=== PATIENT | female | born 1960 | race Caucasian/White ===

== ENCOUNTER → 2017-11-08 19:45 | Outpatient (CLI) | payer OTHER, SELFPAY | PROVIDERS: Family Provider Internal Medicine; PCP Internal Medicine; Visit Provider Internal Medicine | DX: G47.9 Sleep disorder, unspecified (principal) | CPT/HCPCS: 95810 ==

== ENCOUNTER → 2017-12-27 20:04 | Outpatient (CLI) | payer OTHER, SELFPAY | PROVIDERS: Family Provider Internal Medicine; PCP Internal Medicine; Visit Provider Internal Medicine Critical Care Medicine | DX: G47.33 Obstructive sleep apnea (adult) (pediatric) (principal) | CPT/HCPCS: 95811 ==

== ENCOUNTER → 2018-01-02 07:14 | Outpatient (CLI) | payer OTHER, SELFPAY ==
--- NOTE | 2018-01-02 12:50 | PFT ---
INTRODUCTION: The patient is a 57-year-old female that presents for pulmonary function testing secondary to a diagnosis of COPD. Respiratory therapy reports good patient effort. Bronchodilators were used during testing. INTERPRETATION: Forced expiration spirometry demonstrates the presence of a severe large airways obstructive ventilatory defect. There was a significant response to aerosolized bronchodilators noted. Spirograms are of good quality do not plateau indicating slow emptying of the lungs. Body plethysmography was performed and reveals an elevated RV to 169% of predicted, indicative of underlying air trapping. Diffusing capacity by single breath CO is moderately reduced at 53% of predicted. When compared to previous pulmonary function studies dated March 2011, there has been a significant reduction in the patient's FEV1 and DLCO. IMPRESSION: These pulmonary function studies demonstrate the presence of a partially reversible severe large airways obstructive ventilatory defect with associated air trapping and reduction in diffusing capacity.
== END ==
PROVIDERS: Family Provider Internal Medicine; PCP Internal Medicine; Referring Provider Internal Medicine Critical Care Medicine; Visit Provider Internal Medicine Critical Care Medicine
DX: J44.9 Chronic obstructive pulmonary disease, unspecified (principal)
CPT/HCPCS: 94060; 94726; 94729

== ENCOUNTER → 2018-02-10 15:06 | Outpatient (CLI) | payer OTHER, SELFPAY ==
[2018-02-10 13:34] VITALS: BMI 40.1
[2018-02-10 15:48] LABS: Absolute Lymphocyte Count 2.57 X10^3/ul (0.83-4.51); Absolute Neutrophil Count 4.7 X10^3/uL (2.0-7.7); Basophil# 0.05 X10^3/uL; Basophil% 0.6 % (0-1); Eosinophil# 0.38 X10^3/uL; Eosinophils% 4.6 % (0-5); Hemoglobin 12.8 g/dl (12.0-15.0); Lymphocyte # 2.57 X10^3/ul (4.0); Lymphocyte % 30.9 % (19-41); Mean Corpuscular Hgb 27.5 pg (27.0-32.0); Mean Corpuscular Volume 85.8 fL (81-99); Monocyte# 0.65 X10^3/uL; Monocyte% 7.8 % (0-10); Neutrophil # 4.65 X10^3/uL (2.7-7.7); Neutrophil % 55.9 % (47-70); Platelet Count 100 K/mm3 (150-450); RBC Distribution Width SD 43.8 fl (35.1-43.9); Red Blood Count 4.66 M/mm3 (4.2-5.4); White Blood Count 8.3 K/mm3 (4.4-11.0)
[2018-02-10 15:54] LABS: POSITIVE COUNT NO; POSITIVE DIFFERENTIAL NO; POSITIVE MORPHOLOGY NO
[2018-02-14 03:07] LABS: Alternaria alternata <0.10 kU/L (Class 0); Bermuda Grass <0.10 kU/L (Class 0); Bluegrass, Kentucky <0.10 kU/L (Class 0); Cat Hair/Dander, Standard <0.10 kU/L (Class 0); D farinae Mite <0.10 kU/L (Class 0); D pteronyssinus <0.10 kU/L (Class 0); Dog Epithelia <0.10 kU/L (Class 0); Elm, American White <0.10 kU/L (Class 0); Oak, White <0.10 kU/L (Class 0); Plantain, English <0.10 kU/L (Class 0); Ragweed, Short/Common <0.10 kU/L (Class 0)
[2018-02-14 12:53] LABS: Mouse Urine <0.10 kU/L (Class 0)
[2018-02-15 20:06] LABS: Aspirgillus flavus Negative (Neg:<1:1); Aspirgillus fumigatus Negative (Neg:<1:1); Aspirgillus niger Negative (Neg:<1:1)
[2018-02-16 08:34] LABS: Immunoglobulin E 17 IU/mL (0-100)
--- OUTSIDE RECORDS SUMMARY | 2018-05-15 07:57 | XMS RPT_ITS ---
:1960 Author Organization [facility] Care Team Providers Name Role Phone Luz DO, Cyndi Attending Unavailable Fast DO, Chloe A Referring Unavailable Luz DO, Cyndi Consulting Unavailable Barr, Annabel Attending Unavailable Luz, Cyndi Referring Unavailable Barr, Annabel Attending Unavailable Barr, Annabel Referring Unavailable Luz, Cyndi Primary Care Unavailable Luz, Cyndi Attending Unavailable Luz, Cyndi Primary Care Unavailable Gallo, Marcos Attending Unavailable Luz, Cyndi Referring Unavailable Gallo, Marcos Attending Unavailable Luz, Cyndi Primary Care Unavailable Gallo, Marcos Attending Unavailable Gallo, Marcos Referring Unavailable Luz, Cyndi Primary Care Unavailable Orlando Broderick D.O. Attending Unavailable Gallo, Marcos Referring Unavailable Purpose Purpose PROBLEMS PROBLEMS DATE TYPE CONDITION / CODE ATTENDING STATUS SOURCE 02/10/2018 Unknown J45.909 - Cortney, Active Matt Unspecified asthma, [facility] uncomplicated / Hospital J45.909(ICD-10) Repository 01/13/2018 Unknown J44.9 - Chronic Orlando Broderick Active Matt obstructive D.O. [facility] pulmonary disease, Hospital unspecified / Repository J44.9(ICD-10) 12/27/2017 Unknown G47.33 - Marcos Holder Active [place] [facility] ap[facility] (adult[facility] Hospital (pediatric) / Repository G47.33(ICD-10) PROCEDURES PROCEDURES No Procedure Records FoundVITAL SIGNS VITAL SIGNS No Vital Signs Records FoundRESULTS RESULTS PULMONARY VISIT REPORT Observed: 02/10/2018 Status: F Source: NAZARETH 4:[address] [facility] REPOSITORY [facility] Pulmonary Medicine of [address] [place] [address] OFFICE VISIT Date of Service: 02/10/18 MR#: [id number] Acct: [id number] Name: SHANTE VAZ Rep #: [id number] : 1960 Provider: Annabel Barr Age/Sex: 57/F Location: [facility] Status: Signed Assessment AND Plan 1. Stage 4 very severe COPD by GOLD classification J44.9 Plan Does not appear to be an exacerbation of COPD today. No need for prednisone or antibiotic. Continue current maintenance medication. No additional testing at this time. Contact the office for any new or worsening symptoms. An acute visit and typically be arranged within 1-2 days. Follow-up in 3 months. Medications New: albuterol sulfate 2.5 mg (3 mL) Inhalation Q4H PRN 180 vials 6RF shortness of breath or wh eezing 2. Severe persistent asthma without complication J45.50 Plan Stepping up therapy to a mood Singulair, continue Claritin daily, encourage Flonase daily. Doing additional lab work to identify if the patient possibly has IgE mediated versus eosinophilic or allergic asthma. Also obtaining a rest test to identify any triggers. Ruling out Aspergillus. Follow-up with Dr. Holder in 3 months to discuss test results. At that time they can evaluate symptom management and to see if she continues to use her rescue inhaler 3-4 times daily. 3. NATHANIEL (obstructive sleep apnea) G47.33 Plan Patient is using and benefiting from Pap therapy. No indication for titration study at this time. Continue to encourage weight loss. Contact the office for any new or worsening symptoms in the meantime. Follow-up in 3 months. 4. Obesity (BMI 30-39.9) E66.9 Plan Encourage weight loss. Plan Detail Other Orders Orders: Other Medications New: Follow Up 3 Months ([facility]) HPI 3 M FU: Chief Complaint: Wheezing HPI Comments Details: This patient presents the office today to follow- up after recently completing some testing. She is ambulatory and currently on room air. She states that she most recently completed prednisone approximately 2 weeks prior to January 02. She has not been on prednisone or antibiotics since then. She has not been to the emergency department or urgent care for any respiratory illnesses. She is compliant with trilogy daily. She rinses her mouth out after each use. She denies any medication side effects such as sore throat or thrush. She is currently utilizing her albuterol rescue inhaler 3-4 times daily. She states that the albuterol nebulizer is actually more effective in relieving her shortness of breath and chest tightness but she has run out of the medication and needs a refill. She takes Flonase occasionally, but is not consistent with it. She does take Claritin daily. Function test completed on January 02, 2018 interpreted as showing partially reversible severe large airway obstructive ventilatory defect, associated with air trapping and a reduction in diffusing capacity. FVC 67% of predicted, FEV1 45% of predicted, FEV1/FVC 52% of predicted, TLC 103% of predicted, RV 169% of predicted and DLCO 53% of predicted. Polysomnogram completed on November 08, 2017 interpreted as showing an overall AHI of 20.2 average events per hour, noted to be 32.2 events per hour in the REM stage of sleep and 28.9 events per hour in the supine position. Also noted a PLMS index of 27.4 events per hour. Impression is moderate obstructive sleep apnea. A CPAP titration study was recommended. CPAP titration study was completed on December 27, 2017 and suggest that the patient be treated on a pressure support of 10/6 cm of water. Also noted an elevated PLMS index of 51.1 events per hour. Compliance report for the past 30 days has been reviewed, note that the patient has only been on therapy since January 20. Since January 20 the patient has worn in the BiPAP every day with an average of greater than 4 hours. Current settings are in fact 10/6 cm H2O. AHI is controlled at an average of 0.5 events per hour and leaks do not appear to be an issue. She does report feeling rested upon arising. She is not currently experiencing any episodes of nocturia. She is struggling somewhat with some dry mouth and sinus pressure while wearing the BiPAP. He denies any difficulty with leaks. She is not currently napping. Intake Vital Signs02/10/18 Height 5 ft 7 in 02/10/18 Weight: 256 lb Intake Visit Reasons: 3 M FU [facility] Vendor: FAVIAN Accompanied by: Self Allergies No Known Allergies Allergy (Verified 02/10/18 13:36) Medications albuterol sulfate HFA 90 mcg/actuation aerosol inhaler 2 puff INHALATION Q6H PRN 11/15/17 [History Confirmed 02/10/18] cholecalciferol (vitamin D3) 2,000 unit capsule 4,000 unit PO DAILY cap 11/15/17 [History Confirmed 02/10/18] lorazepam 0.5 mg tablet 0.5 mg PO DAILY PRN tab 11/15/17 [History Confirmed 02/10/18] metformin 500 mg tablet 500 mg PO DAILY tab 11/15/17 [History Confirmed 02/10/18] fluticasone 100 mcg-umeclid 62.5 mcg-vilant 25 mcg powd for inhalation 1 inh INHALATION DAILY #60 ea 11/21/17 [Rx Confirmed 02/10/18] albuterol sulfate 2.5 mg/3 mL (0.083 %) solution for nebulization 2.5 mg INHALATION Q4H PRN #180 vial 02/10/18 [Rx Confirmed 02/10/18] montelukast 10 mg tablet 10 mg PO QPM #30 tab 02/10/18 [Rx Confirmed 02/10/18] PFSH Medical History History of colon cancer (Chronic) GERD (gastroesophageal reflux disease) (Chronic) COLD (chronic obstructive lung disease) (Chronic) Acute bronchitis (Acute) Hematuria (Acute) Vitamin D deficiency (Acute) Anxiety (Chronic) Apnea (Chronic) Axillary lymphadenopathy (Chronic) Chronic idiopathic thrombocytopenia (Chronic) GERD without esophagitis (Chronic) HLD (hyperlipidemia) (Chronic) History of MRSA infection (Chronic) Lung nodule (Chronic) Obesity (Chronic) Premature beats (Chronic) Sleep disorder (Chronic) Type 2 diabetes mellitus (Chronic) Surgical History H/O dilation and curettage (Resolved) H/O right hemicolectomy (Resolved) H/O tubal ligation (Resolved) History of tonsillectomy (Resolved) Hx of cholecystectomy (Resolved) Family History Mother HLD (hyperlipidemia) Anxiety Depression Alzheimers disease Social History Smoking Status: Former smoker second hand exposure: Yes alcohol intake: current alcohol intake frequency: holidays/special occasions only substance use type: does not use Review of Systems Const CONSTITUTIONAL: Negative anorexia, body ache, chills, daytime sleepiness, fever(s), night sweats, oral thrush, stops breathing during sleep, weight loss, sleeping in chair, fatigue, weight loss, weight gain, frequent colds, seasonal allergies, other, headache(s) or orthopnea EETM Ear Nose Throat Mouth: Positive hearing normal, post nasal drip and other (nasal dryness); negative hard of hearing, hoarseness, dry mouth in morning, change in vision, itchy eyes, eye pain, swallowing Difficulty, ear pain, nose bleed, headache(s), mouth pain, nasal congestion, nasal discharge, sinus pain, sinus pressure or sore throat Cardio Cardiovascular: Positive edema Location: lower extremity (hands) Right/Left: Left, Right; negative chest pain, chest pain at rest, chest pain with activity, irregular heart rhythm, shortness of breath when lying down, palpitations, murmur or other Resp Respiratory: Positive as per HPI and shortness of breath shortness of breath: Positive with activity; negative pain with cough, wheezing, chest congestion, cough, chest tightness, pain on inspiration, inhalers, increase use of rescue inhalers, snoring, apnea or other Gastro Gastrointestional: Negative bloody stools, change in appetite, difficulty swallowing, reflux, hematemesis, melena stool, loose stool, constipation or other Genitourinary: Negative blood in urine, nocturia, pain with urination or other Musc Musculoskeletal: Negative body pain, back pain, neck pain or other Skin/Breast Skin/Breast: Negative dry skin, itching, rash, unusual bruising, breast lump or other Neuro Neurological: Negative restless legs, confusion, weakness or other Psych Psychocological: Negative abnormal sleep pattern, anxiety, thoughts of hurting self/others, hopelessness or other Lymph Lymphatic: Negative easy bleeding, easy bruising, swollen lymph nodes or other Exam Const Constitutional: Positive conversant, cooperative, in no acute respiratory distress, healthy appearing, well developed, well nourished, good hygiene and obese Head Head: Positive normocephalic and atraumatic; negative cyanosis of lips/distal nose Eyes Eye: Positive clear conjunctiva; negative nystagmus or scleral abnormality Ears Ear: Positive hearing normal and external ears normal; negative hard of hearing Nose Nose: Positive external nose normal and no nasal discharge; negative epistaxis Mouth Mouth: Positive post nasal drip, oral mucosae normal, no lesions and crowded posterior oropharynx; negative malodorous breath or oral thrush present Mallampati Score: III: Mallampati Score Neck Neck: Positive normal visual inspection, full ROM, trachea midline, thick neck and female neck greater than 37 cm (15 in); negative lymphadenopathy, JVD or tender Chest Wall Chest: Positive symmetric chest movement and increased A/P diameter Resp lung sounds: Positive good air exchange, wheeze present on forced exhalation, normal respiratory effort and prolonged expiratory time; negative diminished, rhonchi, rales or dullness to percussion Cardio Cardiac: Positive regular rate, regular rhythm, S1 normal and S2 normal; negative murmur GI GI: Positive normal to inspection and obese; negative distended Genitourinary: Positive deferred Musc Musculoskeletal: Positive steady gait, ROM normal and kyphosis; negative scoliosis Skin Pulmonary Skin Exam: Positive intact; negative rash Pulses Pulse: Yes pulses normal x4 extremities Extremities Extremities: Yes capillary refill normal, No clubbing, No cyanosis, Yes edema Location: lower extremity (hands) location: Bilateral pitting +1 Neuro Neurologic: Yes conversant, Yes no focal neuro deficits, Yes normal concentration, Yes understands questions, Yes cooperative, Yes normal cognition, Yes normal coordination, No tremor Lymph Lymphatic: No lymphadenopathy, No tenderness, No cervical adenopathy Psych Appearance: Positive grossly normal, eye contact and well kempt Mental Status: Positive mental status grossly normal Mood: Positive anxious mood Affect: Positive anxious affect Coding Level of Care Code Off vis,est,level 4 Diagnoses Stage 4 very severe COPD by GOLD classification J44.9 Severe persistent asthma without complication J45.50 Asthma severity: severe Asthma persistence: persistent Asthma complication type: uncomplicated NATHANIEL (obstructive sleep apnea) G47.33 Obesity (BMI 30-39.9) E66.9 02/10/18 1642 <Electronically signed by Annabel HERNANDEZ> Date Annabel KHANC Cosigner Signature: Date (if applicable) CC: Cyndi Escobar DO CBC W/DIFF, AUTOMATED Collected: 02/10/2018 Status: F Source: MATT 3:[address] [facility] REPOSITORY TYPE CODE TESTS RESULT OUT OF RANGE REFERENCE UNITS LAB L100.1000 4.4-11.0 K/mm3 Normal WBC 8.3 LAB L100.1200 4.2-5.4 M/mm3 Normal RBC 4.66 LAB L100.1300 12.0-15.0 g/dl Normal HGB 12.8 LAB L100.1400 37-47 % Normal HCT 40.0 LAB L100.1500 81-99 fL Normal MCV 85.8 LAB L100.1600 27.0-32.0 pg Normal MCH 27.5 LAB L100.1700 32-36 g/gl Normal MCHC 32.0 LAB L100.1810 11.6-14.6 % Normal RDW CV 14.0 LAB L100.1820 35.1-43.9 fl Normal RDW SD 43.8 LAB L100.1900 150-450 K/mm3 Low PLT 100 LAB L100.2000 6.2-12.0 fl Normal MPV 11.0 LAB L100.2100 47-70 % Normal NEUT% 55.9 LAB L100.2200 19-41 % Normal LY% 30.9 LAB L100.2300 0-10 % Normal MONO% 7.8 LAB L100.2400 0-5 % Normal EO% 4.6 LAB L100.2500 0-1 % Normal BASO% 0.6 LAB L100.2550 0.0-0.9 % Normal IM GRAN % 0.200 Result Comment: IG% - Immature Granulocytes (promyelocytes, myelocytes and metamyelocytes) > 1% indicates that a LEFT SHIFT is Present. LAB L100.2620 2.0-7.7 X10 3/uL Normal Absolute Neut 4.7 LAB L100.2720 0.83-4.51 X10 3/ul Normal Absolute Lymph 2.57 Performed By: #### L100.0100 #### [facility] [address] [place], [address] ALLERGEN, MINI-RAST Collected: 02/10/2018 Status: F Source: NAZARETH 3:[address] [facility] REPOSITORY TYPE CODE TESTS RESULT OUT OF REFERENCE UNITS RANGE LAB L5500.1001 Class 0 kU/L D PTERONYSSINUS Normal <0.10 LAB L5500.1002 Class 0 kU/L D FARINAE MITE Normal <0.10 LAB L5500.2000 Class 0 kU/L CAT HAIR/DANDER Normal <0.10 LAB L5500.2002 Class 0 kU/L DOG EPITHELIA Normal <0.10 LAB L5500.4002 Class 0 kU/L BERMUDA GRASS Normal <0.10 LAB L5500.4008 Class 0 kU/L [place], [place] Normal <0.10 LAB L5500.5006 Class 0 kU/L A. ALTERNATA Normal <0.10 LAB L5500.6007 Class 0 kU/L [place], WHITE Normal <0.10 LAB L5500.6008 Class 0 kU/L [place],AMER WHITE Normal <0.10 LAB L5500.7001 Class 0 kU/L RAG[place] SH/COM Normal <0.10 LAB L5500.7009 Class 0 kU/L PLANTAIN,ENGLSH Normal <0.10 LAB L5500.7150 Class 0 kU/L Mouse Urine Normal <0.10 Result Comment: Performed at: - [facility] [id number] [employer] Consultant: Nakita Rolon MD, Phone: [phone] LAB Q9476.8913 . Normal RAST COMMENT Comment Result Comment: Levels of Specific IgE Class Description of Class ----- < 0.10 0 Negative 0.10 - 0.31 0/I Equivocal/Low 0.32 - 0.55 I Low 0.56 - 1.40 II Moderate 1.41 - 3.90 III High 3.91 - 19.00 IV Very High 19.01 - 100.00 V Very High >100.00 Very High Performed By: #### L5500.0300 #### [facility] (refer to report for specific site) refer to report for address and phone number IMMUNOGLOBULIN E Collected: 02/10/2018 Status: F Source: MATT 3:[address] [facility] REPOSITORY TYPE CODE TESTS RESULT OUT OF RANGE REFERENCE UNITS LAB L3200.1600 0-100 IU/mL Normal IMMUNO E 17 Result Comment: Performed at: [facility] [id number] [employer] Consultant: Nakita Rolon MD, Phone: [phone] Performed By: #### L3200.1600, L3500.3600 #### [facility] (refer to report for specific site) refer to report for address and phone number ASPERGILLUS ANTIBODIES Collected: 02/10/2018 Status: F Source: MATT 3:[address] [facility] REPOSITORY TYPE CODE TESTS RESULT OUT OF RANGE REFERENCE UNITS LAB L3500.3700 Neg:<1:1 Asp. Normal fumigatus Negative LAB L3500.3800 Neg:<1:1 Asp. Normal flavus Negative LAB L3500.3900 Neg:<1:1 Asp. Normal niger Negative Performed By: #### L3200.1600, L3500.3600 #### [facility] (refer to report for specific site) refer to report for address and phone number PULMONARY FUNCTION Observed: 01/02/2018 Status: F Source: MATT TEST 12:[address] [facility] REPOSITORY [facility] Pulmonary Services/Neurology [address] [place] [address] MR#: [id number] Acct: [id number] Name: SHANTE VAZ Rep #: [id number] : 1960 57 From: Orlando Broderick DO Referring Dr: Marcos Holder MD Status: REG CLI Ordering Dr: Date: Location: [facility] Sex: F C INTRODUCTION: The patient is a 57-year-old female that presents for pulmonary function testing secondary to a diagnosis of COPD. Respiratory therapy reports good patient effort. Bronchodilators were used during testing. INTERPRETATION: Forced expiration spirometry demonstrates the presence of a severe large airways obstructive ventilatory defect. There was a significant response to aerosolized bronchodilators noted. Spirograms are of good quality do not plateau indicating slow emptying of the lungs. Body plethysmography was performed and reveals an elevated RV to 169% of predicted, indicative of underlying air trapping. Diffusing capacity by single breath CO is moderately reduced at 53% of predicted. When compared to previous pulmonary function studies dated March 2011, there has been a significant reduction in the patient's FEV1 and DLCO. IMPRESSION: These pulmonary function studies demonstrate the presence of a partially reversible severe large airways obstructive ventilatory defect with associated air trapping and reduction in diffusing capacity. 01/02/18 1252 <Electronically signed by Orlando Broderick DO> Date Orlando Broderick DO CC: Marcos Holder MD; Cyndi Escobar DO Date Dictated: 01/02/18 1250 Date Transcribed: 01/02/18 1250 Flight Steward: FRANCESCA Signed PULMONARY VISIT REPORT Observed: 11/22/2017 Status: F Source: MATT 7:[address] [facility] REPOSITORY [facility] [place] [address] [place] [address] OFFICE VISIT Date of Service: 11/21/17 MR#: [id number] Acct: [id number] Name: SHANTE VAZ Rep #: [id number] : 1960 Provider: Marcos Holder MD Age/Sex: 57/F Location: [facility] Status: Signed Assessment AND Plan 1. Stage 4 very severe COPD by GOLD classification J44.9 Plan Patient with very severe obstruction by spirometry at her PCPs office. However, FVC is decreased indicating a possible restrictive ventilatory defect. Will obtain a complete pulmonary function test for quantification and clarification of lung function including lung volumes for possible restriction. Clinical suspicion for air trapping leading to decreased FVC. Patient's walking oximetry did not show any significant desaturation, so this will not be repeated. Will transition patient to Trelegy or convenience. Patient was given a co-pay card to limit [id number] expenses. Signs and symptoms of exacerbation and sick policy were reviewed in detail and patient voiced understanding. Transition to Trelegy. Discontinue Tudorza and Symbicort. Obtain complete PFT Orders Orders: 2. NATHANIEL (obstructive sleep apnea) G47.33 Plan Patient's polysomnogram shows an AHI of 20.2 with a periodic limb movement index of 27.4. Given patient's subjective fatigue, this level of disease will require noninvasive therapy. A titration polysomnogram will be ordered. We will hold off on any iron studies or Mirapex therapy until NATHANIEL is treated. Obtain titration polysomnogram. Orders Orders: 3. Obesity (BMI 30-39.9) E66.9 Plan Michael discussion with patient about the role of weight loss and the overall disease plan of care. However, plan on controlling sleep apnea prior to initiation of any dietary or exercise modifications to help with success. Patient is aware of the role of her weight and her overall disease process. Patient understands that weight loss will also help her compensate for decreased lung function. Encourage weight loss following control of obstructive sleep apnea Plan Detail Other Medications New: nonbhomkpcr-izmsxgqze-ldzdgmap 100-62.5-25 mcg (Trelegy1 inh Inhalation DAILY 60 ea 11RF Ellipta) Follow Up 3 Months ([facility]) HPI Chronic obstructive pulmonary disease: Chief Complaint: Shortness of breath on exertion Details: Patient is a 57-year-old female, currently under the care of Dr. Chance, who presents for evaluation secondary to shortness of breath on exertion. Patient reports a long history of COPD after smoking for 29 pack years. However, patient did achieve smoking cessation several years ago, but still has secondhand smoke exposure. Patient is currently being treated with Tudorza and Symbicort therapy and states that she has been tolerating this well. Patient's primary care physician did try her on Trelegy with a sample, but patient states that she really did not see any big difference, so went back to her normal medications. Patient reports exercise tolerance of approximately 100 yards. Patient did have a walking oximetry recently at her primary care physician that showed no significant desaturation. However, spirometry shows significant decrease in FEV1. Patient does report a cough productive of clear to white sputum on a daily basis. Patient also reports wheezing that does improve with production of creamy white sputum. Patient reports that she is a terrible sleeper and recently had a polysomnogram ordered by her primary care physician. Patient states that it was inferred that she may need another study, but she does not know the results. Patient reports that she snores and does wake up frequently at night. Patient does have a history of colon cancer in the past, but states that she is currently cured and follows with Dr. Cordero. Documentation reviewed 14 pages of documentation were reviewed from patient's primary care physician. This did include a walking oximetry showing no significant desaturation with ambulation. Patient also had a pulmonary function test showing an FEV1 of 46% of predicted, but no lung volumes were available for review. Patient does have a history of colon cancer diagnosed in 2012, but underwent resection and chemotherapy and was considered cured. Patient carries a diagnosis of lung nodule, but no details are available. Patient was placed on trelegy. Called the sleep lab and got the raw data for patient's recent polysomnogram. Patient had an AHI of 20.2. Formal report should be out later today or tomorrow. Intake Vital Signs11/21/17 Height 5 ft 7 in 11/21/17 Weight: 113.398 kg Intake Visit Reasons: COPD Accompanied by: Self Allergies No Known Allergies Allergy (Verified 11/15/17 09:25) Medications albuterol sulfate 2.5 mg/3 mL (0.083 %) solution for nebulization 2.5 mg INHALATION Q4H PRN 11/15/17 [History Confirmed 11/15/17] albuterol sulfate HFA 90 mcg/actuation aerosol inhaler 2 puff INHALATION Q6H PRN 11/15/17 [History Confirmed 11/15/17] cholecalciferol (vitamin D3) 2,000 unit capsule 4,000 unit PO DAILY cap 11/15/17 [History Confirmed 11/15/17] lorazepam 0.5 mg tablet 0.5 mg PO DAILY PRN tab 11/15/17 [History Confirmed 11/15/17] metformin 500 mg tablet 500 mg PO DAILY tab 11/15/17 [History Confirmed 11/15/17] fluticasone 100 mcg-umeclid 62.5 mcg-vilant 25 mcg powd for inhalation 1 inh INHALATION DAILY #60 ea 11/21/17 [Rx Confirmed 11/21/17] PFS Medical History History of colon cancer (Chronic) GERD (gastroesophageal reflux disease) (Chronic) COLD (chronic obstructive lung disease) (Chronic) Acute bronchitis (Acute) Hematuria (Acute) Vitamin D deficiency (Acute) Anxiety (Chronic) Apnea (Chronic) Axillary lymphadenopathy (Chronic) Chronic idiopathic thrombocytopenia (Chronic) GERD without esophagitis (Chronic) HLD (hyperlipidemia) (Chronic) History of MRSA infection (Chronic) Lung nodule (Chronic) Obesity (Chronic) Premature beats (Chronic) Sleep disorder (Chronic) Type 2 diabetes mellitus (Chronic) Surgical History H/O dilation and curettage (Resolved) H/O right hemicolectomy (Resolved) H/O tubal ligation (Resolved) History of tonsillectomy (Resolved) Hx of cholecystectomy (Resolved) Family History Mother HLD (hyperlipidemia) Anxiety Depression Alzheimers disease Social History Smoking Status: Former smoker second hand exposure: Yes alcohol intake: current alcohol intake frequency: holidays/special occasions only substance use type: does not use Review of Systems Const CONSTITUTIONAL: Negative anorexia, body ache, chills, daytime sleepiness, fever(s), night sweats, oral thrush, stops breathing during sleep, weight loss, sleeping in chair, fatigue, weight loss, weight gain, frequent colds, seasonal allergies, other, headache(s) or orthopnea EETM Ear Nose Throat Mouth: Positive hearing normal and dry mouth in morning; negative hard of hearing, hoarseness, change in vision, itchy eyes, eye pain, swallowing Difficulty, ear pain, nose bleed, headache(s), mouth pain, nasal congestion, nasal discharge, post nasal drip, sinus pain, sinus pressure, sore throat or other Cardio Cardiovascular: Negative chest pain, chest pain at rest, chest pain with activity, irregular heart rhythm, edema, shortness of breath when lying down, palpitations, murmur or other Resp Respiratory: Positive as per HPI, shortness of breath shortness of breath: Positive with activity and worsening, wheezing and cough cough: Positive productive color: Positive white and clear; negative pain with cough, chest congestion, chest tightness, pain on inspiration, inhalers, increase use of rescue inhalers, snoring, apnea or other Gastro Gastrointestional: Negative bloody stools, change in appetite, difficulty swallowing, reflux, hematemesis, melena stool, loose stool, constipation or other Genitourinary: Negative blood in urine, nocturia, pain with urination or other Musc Musculoskeletal: Negative body pain, back pain, neck pain or other Skin/Breast Skin/Breast: Negative dry skin, itching, rash, unusual bruising, breast lump or other Neuro Neurological: Negative restless legs, confusion, weakness or other Psych Psychocological: Positive abnormal sleep pattern; negative anxiety, thoughts of hurting self/others, hopelessness or other Lymph Lymphatic: Negative easy bleeding, easy bruising, swollen lymph nodes or other Exam Const Constitutional: Positive conversant, cooperative, in no acute respiratory distress, healthy appearing, well developed, well nourished, good hygiene and obese; negative wearing supplemental oxygen or smells of smoke Head Head: Positive normocephalic and atraumatic; negative cyanosis of lips/distal nose, frontal sinus tenderness or maxillary sinus tenderness Eyes Eye: Positive clear conjunctiva; negative nystagmus, scleral abnormality or cataract present Ears Ear: Positive hearing normal and external ears normal; negative hard of hearing Nose Nose: Positive external nose normal, septum normal and no nasal discharge; negative epistaxis or nasal polyp Mouth Mouth: Positive oral mucosae normal, no lesions, dentures and crowded posterior oropharynx; negative post nasal drip, malodorous breath or oral thrush present Mallampati Score: III: Mallampati Score Neck Neck: Positive normal visual inspection, full ROM, trachea midline and female neck greater than 37 cm (15 in); negative lymphadenopathy or JVD Chest Wall Chest: Positive symmetric chest movement and increased A/P diameter; negative crepitus or tenderness Resp lung sounds: Positive wheeze present on forced exhalation, diminished and prolonged expiratory time; negative wheezes, rhonchi, rales, use of accessory muscles or dullness to percussion Cardio Cardiac: Positive regular rate, regular rhythm, S1 normal and S2 normal; negative murmur, rub or gallop GI GI: Positive normal to inspection, normal bowel sounds and obese; negative distended, ascites or epigastric tenderness Genitourinary: Positive deferred Musc Musculoskeletal: Positive steady gait; negative using an assistive device for ambulation, kyphosis or scoliosis Skin Pulmonary Skin Exam: Positive intact; negative rash, lesion, ulcers, erythema, scaly or dermal atrophy Pulses Pulse: Yes radial pulses present Extremities Extremities: Yes capillary refill normal, No clubbing, No cyanosis, Yes edema (1+ lower extremity) Neuro Neurologic: Yes conversant, Yes no focal neuro deficits, Yes normal coordination, Yes normal concentration, Yes cooperative, Yes normal cognition, Yes understands questions Lymph Lymphatic: No lymphadenopathy Psych Appearance: Positive grossly normal Mental Status: Positive mental status grossly normal Mood: Positive congruent mood Affect: Positive normal affect Coding Level of Care Code Off vis,new,level 5 Diagnoses Stage 4 very severe COPD by GOLD classification J44.9 NATHANIEL (obstructive sleep apnea) G47.33 Obesity (BMI 30-39.9) E66.9 11/22/17 0736 <Electronically signed by Marcos Holder MD> Date Marcos Holder MD Cosigner Signature: Date (if applicable) CC: Cyndi Escobar DO ALLERGIES ALLERGIES DATE TYPE / CODE NAME / CODE REACTION SEVERITY SOURCE 02/10/2018 Drug No Known Unknown Matt [facility] Allergy/4160 Allergies/F00 Hospital 72909(SNOMED [id number](RXNOR Repository CT) M) ENCOUNTERS ENCOUNTERS ADMIT/DISCHARGE ACCOUNT ADMITTING ENCOUNTER LOCATION SOURCE NUMBER CLASS 02/21/2018 [id number] Ambulatory Building:[facility] OHIP Practices Repository 02/10/2018 [id number] Ambulatory Matt Matt 4 [facility] ing:PAVLAB Repository 02/10/2018/ [id number] Ambulatory BMSBuilding:B Matt 8 0 [place].[facility] Repository 01/02/2018 [id number] Ambulatory Matt Matt 6 [facility] ing:PSN Repository 01/02/2018 [id number] Ambulatory BMSBuilding:W Matt 7 [facility] Repository 12/27/2017 [id number] Ambulatory [place] 1 [facility] ing:SL Repository 11/21/2017/ [id number] Ambulatory BMSBuilding:B Matt 8 0 MS.W [facility] Repository 11/08/2017 [id number] Ambulatory Matt Matt 3 [facility] ing:SL Repository FUNCTIONAL STATUS FUNCTIONAL STATUS No Functional Status Records FoundEQUIPMENT EQUIPMENT No Equipment Records FoundPAYERS PAYERS ENCOUNTER GUARANTOR PAYER SUBSCRIBER SOURCE 02/21/2018 Shante G [facility]: Repository [id number] Number: [id number] [facility] [id number] [address] [facility] [address] [place] [address], [place] Date:5110-83-26Vgyg [address] [place] [address]Idl: 330) Name:[facility] Shanita [address]Cxr: 733548Hzegxb, [place] [phone] () ()Tel: [phone]: [phone] 02/21/2018 Secondary Shante G OHIP Practices Insurance:Medical MiddletonDOB: Repository [facility] [id number] Number: [address] [facility] [id number] [address], [place] Date: [address]Aec: [phone] [id number] [phone] (HP) Name:[facility] Shanita [address]Qzgomnmsf, [place] [id number]: 02/10/2018 NEGRO Mamta Primary SHANTE Navarrete Matt [id number] [facility] [address], [facility] Number: [id number] Hospital [address]Uqv: [phone] [id number] Repository [phone] (HP) Date:3780-20-15[address]QSQWG, [place] [address]AA: 02/10/2018 Secondary NOT GIVENUNK [place] Insurance:SELF PAY [facility] Number: Effective Repository Date:2018-02-10 02/10/2018 NEGRO D Primary SHANTE Navarrete [place] [id number] [facility] Number: [id number] Hospital [address]Hbr: [phone] [id number] Repository [phone] () Date:3403-35-36[address]CU, [place] [address]WN: 02/10/2018 Secondary NOT GIVENUNK [place] Insurance:SELF PAY [facility] Hospital Number: Effective Repository Date:2018-01-31 01/02/2018 NEGRO D Primary SHANTE Fongoster [id number] [facility] [address], [facility] Number: [id number] Hospital [address]28[address]Xhc: [phone] [id number] Repository [phone] (HP) Date:6990-53-88[address], [place] [address]FS: 01/02/2018 Secondary NOT GIVENUNK [place] Insurance:SELF PAY [facility] Hospital Number: Effective Repository Date:2017-12-17 01/02/2018 NEGRO Oleary Primary SHANTE Navarrete [place] [id number] Insurance:GPATPA MIDDLETONDOB: [address], [place] [facility] Number: [id number] Hospital [address]Tah: [phone] [id number] Repository [phone] (HP) Date:6750-98-19[address]QIU, [place] [address]RK: 01/02/2018 Secondary NOT GIVENUNK [place] Insurance:SELF PAY [facility] Number: Effective Repository Date:2018-01-02 12/27/2017 NEGRO Oleary Primary SHANTE Navarrete [place] [id number] Insurance:GPATPA MIDDLETONDOB: [address] [facility] Number: [id number] Hospital [address]Xfk: [phone] [id number] Repository [phone] (HP) Date:1429-43-05[address]QYJVWC, [place] [address]TL: 12/27/2017 Secondary NOT GIVENUNK Matt Insurance:SELF PAY [facility] Number: Effective Repository Date:2017-11-21 11/21/2017 Negro Oleary Primary SHANTE Navarrete [place] [id number] Insurance:GPATPA MIDDLETONDOB: [address] [facility] Number: [id number] Hospital [address]Cys: [phone] [id number] Repository [phone] (HP) Date:1596-02-73GJ [address]IEJFPS, [place] [address]NO: 11/21/2017 Secondary NOT GIVENUNK [place] Insurance:SELF PAY [facility] Number: Effective Repository Date:2017-11-20 11/08/2017 Negro Oleary Primary SHANTE Fongoster [id number] Insurance:GPATPA MIDDLETONDOB: [address] [facility] Number: [id number] Hospital [address]Rne: [phone] [id number] Repository [phone] (HP) Date:3726-25-87WQ [address]ZZW, [place] [address]KR: 11/08/2017 Secondary NOT GIVENUNK [place] Insurance:SELF PAY [facility] Number: Effective Repository Date:2017-10-25 SOCIAL HISTORY SOCIAL HISTORY No Social History Records FoundFAMILY HISTORY FAMILY HISTORY No Family History Records FoundADVANCE DIRECTIVES ADVANCE DIRECTIVES No Advanced Directives Records FoundINFORMATION SOURCE INFORMATION SOURCE DATE CREATED AUTHOR AUTHOR'S ORGANIZATION 03/19/2018 [facility]
== END ==
PROVIDERS: Family Provider Internal Medicine; PCP Internal Medicine; Referring Provider Nurse Practitioner Acute Care; Visit Provider Nurse Practitioner Acute Care
DX: J45.909 Unspecified asthma, uncomplicated (principal)
CPT/HCPCS: 36415; 82785; 85025; 86003; 86606

== ENCOUNTER → 2018-05-24 07:42 | Outpatient (CLI) | payer OTHER, SELFPAY ==
[2018-05-09 10:33] VITALS: BMI 40.1
[2018-05-24 08:00] LABS: Mucous, Urine 0 SEEN /hpf (<or=2+); Red Blood Cells-Urine 0 SEEN /hpf (0-5)
[2018-05-24 08:20] LABS: Absolute Lymphocyte Count 2.13 X10^3/ul (0.83-4.51); Absolute Neutrophil Count 3.5 X10^3/uL (2.0-7.7); Basophil# 0.02 X10^3/uL; Basophil% 0.3 % (0-1); Color, Urine Yellow (Yellow); Eosinophil# 0.33 X10^3/uL; Glucose, Dipstick Normal (Normal); Hematocrit 39.4 % (37-47); Hemoglobin 12.3 g/dl (12.0-15.0); Ketone-Dipstick Negative (Negative); Leukocyte Esterase-Dipstick 25 /ul (Negative); Lymphocyte # 2.13 X10^3/ul (4.0); Lymphocyte % 32.6 % (19-41); Mean Corp Hgb Conc 31.2 g/gl (32-36); Mean Corpuscular Hgb 26.7 pg (27.0-32.0); Mean Corpuscular Volume 85.7 fL (81-99); Mean Platelet Vol. 10.6 fl (6.2-12.0); Monocyte# 0.59 X10^3/uL; Neutrophil # 3.45 X10^3/uL (2.7-7.7); Neutrophil % 52.8 % (47-70); Nitrite-Dipstick Negative (Negative); Occult Blood-Urine 10 /ul (Negative); Platelet Count 130 K/mm3 (150-450); Protein-Dipstick Negative (Negative); RBC Distribution Width CV 14.6 % (11.6-14.6); RBC Distribution Width SD 45.7 fl (35.1-43.9); Specific Gravity, Urine 1.015 (1.002-1.030); Urine Bilirubin Dipstick Negative (Negative); Urine Clarity Sl. Cloudy (Clear); Urine Urobilinogen Normal (Normal); White Blood Count 6.5 K/mm3 (4.4-11.0)
[2018-05-24 08:22] LABS: POSITIVE COUNT NO; POSITIVE DIFFERENTIAL NO; POSITIVE MORPHOLOGY NO
[2018-05-24 08:34] LABS: Bacteria RARE /hpf (None Seen); Squamous Epithelial Cells - UA 0-5 SEEN /hpf (5-10); White Blood Cells 0-5 SEEN /hpf (0-5)
[2018-05-24 08:42] LABS: Microalbumin,Random Urine 10.5 mg/L (NO RANGE EST.); Microalbumin:Creatinine Ratio 11.9 mg/g CRE (<30 mg/g CRE)
[2018-05-24 08:50] LABS: AST(SGOT) 16 U/L (15-37); Alanine Aminotransfer ALT/SGPT 27 U/L (13-56); Albumin, Serum 3.6 g/dL (3.2-5.0); Alkaline Phosphatase 131 U/L (45-117); Anion Gap 7 (5-15); BUN 9 mg/dL (7-18); BUN/Creat Ratio 12.2 RATIO (10-20); Bilirubin, Direct 0.19 mg/dL (0.00-0.30); Calcium,Total 8.6 mg/dL (8.5-10.1); Chloride 109 mmol/L (98-107); Creatinine, Serum 0.74 mg/dL (0.55-1.02); EST Glomerular Filtration Rate 85 mL/min (>60); Est Glom Filt Rate - Afr Amer 103 mL/min (>60); Globulin 3.6 g/dL (2.2-4.2); Glucose 122 mg/dL (74-106); Potassium 3.9 mmol/L (3.5-5.1); Protein, Total 7.2 g/dL (6.4-8.2); Sodium Level 142 mmol/L (136-145); Thyroid Stim Hormone (TSH) 1.94 uIU/mL (0.358-3.74)
[2018-05-24 08:53] LABS: Vitamin D,25 Hydroxy 57.2 ng/mL (29.95-100.01)
[2018-05-27 12:07] LABS: CHOLESTEROL TOTAL 177 mg/dL (100-199); HDL-C 46 mg/dL (>39); SMALL LDL-P 765 nmol/L (<=527); TRIGLYCERIDES 103 mg/dL (0-149)
[2018-05-27 13:05] LABS: INSULIN RESISTANCE SCORE 63 (<=45); LDL SIZE 20.8 nm (>20.5); LDL-C 110 mg/dL (0-99); LDL-P 1523 nmol/L (<1000)
== END ==
LOC: LAB 07:45
PROVIDERS: Family Provider Internal Medicine; PCP Internal Medicine; Referring Provider Internal Medicine Critical Care Medicine; Visit Provider Internal Medicine Critical Care Medicine
DX: J44.9 Chronic obstructive pulmonary disease, unspecified (principal); E88.01 Alpha-1-antitrypsin deficiency; E55.9 Vitamin D deficiency, unspecified; D69.3 Immune thrombocytopenic purpura; E78.5 Hyperlipidemia, unspecified; E11.9 Type 2 diabetes mellitus without complications
CPT/HCPCS: 80048; 80061; 80076; 81001; 82043; 82306; 82570; 83704; 84443; 85025

== ENCOUNTER → 2018-05-30 14:15 | Outpatient (CLI) | payer OTHER, SELFPAY ==
[2018-05-30 13:37] VITALS: BMI 40.1
== END ==
LOC: LABSPEC 14:17
PROVIDERS: Family Provider Internal Medicine; PCP Internal Medicine; Referring Provider Nurse Practitioner Acute Care; Visit Provider Nurse Practitioner Acute Care
DX: J44.9 Chronic obstructive pulmonary disease, unspecified (principal)
CPT/HCPCS: 87070; 87077; 87186; 87205

== ENCOUNTER → 2018-07-29 07:14 | Outpatient (CLI) | payer OTHER, SELFPAY ==
[2018-05-09 10:33] VITALS: BMI 40.1
[2018-05-30 13:37] VITALS: BMI 40.1
--- NOTE | 2018-07-29 12:56 | PFT ---
INTRODUCTION: The patient is a 58-year-old female that presents for pulmonary function studies secondary to a diagnosis of COPD. Respiratory therapy reports good patient effort. Bronchodilators were used during testing. INTERPRETATION: Forced expiration spirometry demonstrates the presence of a severe large airways obstructive ventilatory defect. There was a significant response to aerosolized bronchodilators. Spirograms are of good quality and do not plateau indicating slow emptying of the lungs. Body plethysmography was performed and reveals an elevated RV to 188% of predicted, indicative of underlying air trapping. Diffusing capacity by single breath CO is reduced at 51% of predicted. IMPRESSION: Partially reversible severe large airways obstructive ventilatory defect with associated air trapping and reduction in diffusing capacity.
== END ==
LOC: PSN 07:15
PROVIDERS: Family Provider Internal Medicine; PCP Internal Medicine; Referring Provider Internal Medicine Critical Care Medicine; Visit Provider Internal Medicine Critical Care Medicine
DX: J44.9 Chronic obstructive pulmonary disease, unspecified (principal); E88.01 Alpha-1-antitrypsin deficiency
CPT/HCPCS: 94060; 94726; 94729

== ENCOUNTER → 2018-08-04 08:53 | Outpatient (CLI) | payer OTHER, SELFPAY ==
[2018-05-09 10:33] VITALS: BMI 40.1
[2018-05-30 13:37] VITALS: BMI 40.1
[2018-08-04 09:17] VITALS: PULSE 100; PULSE 104; PULSE 107; PULSE 109; PULSE 110; PULSE 76; O2SAT 92; O2SAT 94; O2SAT 96; O2SAT 97; O2SAT 98
--- NOTE | 2018-08-04 12:56 | PCM.PSN.6M ---
PSN 6 Minute Walk Test - 6 Minute Walk Test 6 Minute Walk Test: 6 Minute Walk Test PSN:6-Minute Walk Test Start: 08/04/18 09:17 Freq: Status: Active Protocol: RESP.6MINW Document 08/04/18 09:17 [facility] (Rec: 08/04/18 09:23 [facility] [id number]) 6 Minute Walk Test Date Performed 08/04/18 Time Performed 09:00 Height 5 ft 7.5 in Weight: 113.398 kg Weight in Pounds 250.[address]: Marcos Holder Assistive device used: None Pre-test Oxygen Delivery Method Room Air Pulse Ox (%) 97 Pulse Rate (60-100 beats/min) 76 Dyspnea Lilly Scale (0-10) 3 1st minute Oxygen Delivery Method Room Air Pulse Ox (%) 96 Pulse Rate (60-100 beats/min) 100 Dyspnea Lilly Scale (0-10) 3 2nd minute Oxygen Delivery Method Room Air Pulse Ox (%) 94 Pulse Rate (60-100 beats/min) 104 H Dyspnea Lilly Scale (0-10) 3 3rd minute Oxygen Delivery Method Room Air Pulse Ox (%) 92 Pulse Rate (60-100 beats/min) 109 H Dyspnea Lilly Scale (0-10) 3 4th minute Oxygen Delivery Method Room Air Pulse Ox (%) 94 Pulse Rate (60-100 beats/min) 107 H Dyspnea Lilly Scale (0-10) 5 Reported Symptoms Increased Work of Breathing 5th minute Oxygen Delivery Method Room Air Pulse Ox (%) 92 Pulse Rate (60-100 beats/min) 110 H Dyspnea Lilly Scale (0-10) 4 Reported Symptoms Increased Work of Breathing 6th minute Oxygen Delivery Method Room Air Pulse Ox (%) 92 Pulse Rate (60-100 beats/min) 109 H Dyspnea Lilly Scale (0-10) 4 Reported Symptoms Increased Work of Breathing Post-test Oxygen Delivery Method Room Air Pulse Ox (%) 98 Pulse Rate (60-100 beats/min) 76 Dyspnea Lilly Scale (0-10) 3 Full Laps Walked 19 Partial Lap, Number of Tiles Walked 50 Total Distance Walked (ft) 1171 - Interpretation Interpretation: The patient was able to ambulate 1171 feet over the course of 6 minutes on room air with no assistive devices or breaks. The patient did have significant desaturation from a baseline of 97% to as low as 92% with reflexive tachycardia as high as 110 bpm. These findings are consistent with a respiratory limitation exercise tolerance. - Recommendations Recommendations: No supplemental oxygen is indicated at this time. However, patient will need to be followed closely given level of desaturation.
== END ==
LOC: PSN 08:53
PROVIDERS: Family Provider Internal Medicine; PCP Internal Medicine; Referring Provider Internal Medicine Critical Care Medicine; Visit Provider Internal Medicine Critical Care Medicine
DX: J44.9 Chronic obstructive pulmonary disease, unspecified (principal); E88.01 Alpha-1-antitrypsin deficiency
CPT/HCPCS: 94618

== ENCOUNTER → 2018-09-15 08:54 | Outpatient (CLI) | payer OTHER, SELFPAY ==
[2018-08-12 07:26] VITALS: BMI 40.1
[2018-09-15 09:42] LABS: AST(SGOT) 12 U/L (15-37); Alanine Aminotransfer ALT/SGPT 23 U/L (13-56); Albumin, Serum 3.7 g/dL (3.2-5.0); Alkaline Phosphatase 134 U/L (45-117); Bilirubin, Direct 0.29 mg/dL (0.00-0.30); Globulin 3.6 g/dL (2.2-4.2); Protein, Total 7.3 g/dL (6.4-8.2)
[2018-09-16 14:08] LABS: CHOLESTEROL TOTAL 153 mg/dL (100-199); HDL-C 76 mg/dL (>39); SMALL LDL-P 342 nmol/L (<=527); TRIGLYCERIDES 121 mg/dL (0-149)
[2018-09-17 10:55] LABS: INSULIN RESISTANCE SCORE 50 (<=45); LDL SIZE 20.6 nm (>20.5); LDL-C 53 mg/dL (0-99); LDL-P 663 nmol/L (<1000)
== END ==
PROVIDERS: Family Provider Internal Medicine; PCP Internal Medicine; Referring Provider Internal Medicine; Visit Provider Internal Medicine
DX: E78.5 Hyperlipidemia, unspecified (principal); R31.9 Hematuria, unspecified
CPT/HCPCS: 36415; 80061; 80076; 83704; 87077; 87086; 87088; 87186

== ENCOUNTER → 2019-01-30 10:09 | Outpatient (CLI) | payer OTHER, SELFPAY ==
[2018-09-15 09:47] VITALS: BMI 40.1
[2019-01-30 11:19] LABS: Absolute Lymphocyte Count 2.52 X10^3/uL (0.83-4.51); Basophil# 0.06 X10^3/uL; Basophil% 0.7 % (0-1); Eosinophil# 0.23 X10^3/uL; Eosinophils% 2.7 % (0-5); Hematocrit 41.2 % (37-47); Hemoglobin 13.1 g/dL (12.0-15.0); Lymphocyte # 2.52 X10^3/ul (4.0); Lymphocyte % 29.3 % (19-41); Mean Corp Hgb Conc 31.8 g/dL (32-36); Mean Corpuscular Hgb 27.5 pg (27.0-32.0); Mean Corpuscular Volume 86.6 fL (81-99); Mean Platelet Vol. 11.9 fl (6.2-12.0); Monocyte# 0.71 X10^3/uL; Monocyte% 8.3 % (0-10); NRBC Flagged by Analyzer 0 % (0-5); Neutrophil # 5.04 X10^3/uL (2.7-7.7); Neutrophil % 58.5 % (47-70); Platelet Count 135 K/mm3 (150-450); RBC Distribution Width CV 13.2 % (11.6-14.6); RBC Distribution Width SD 41.5 fl (35.1-43.9); Red Blood Count 4.76 M/mm3 (4.2-5.4); White Blood Count 8.6 K/mm3 (4.4-11.0)
[2019-01-30 11:55] LABS: Thyroid Stim Hormone (TSH) 1.79 uIU/mL (0.358-3.74)
[2019-01-30 11:57] LABS: Vitamin D,25 Hydroxy 35.1 ng/mL (29.95-100.01)
[2019-01-31 14:07] LABS: CHOLESTEROL TOTAL 117 mg/dL (100-199); HDL-C 45 mg/dL (>39); HDL-P TOTAL 34.7 umol/L (>=30.5); SMALL LDL-P 425 nmol/L (<=527); TRIGLYCERIDES 98 mg/dL (0-149)
[2019-02-02 20:26] LABS: INSULIN RESISTANCE SCORE 66 (<=45); LDL SIZE 20.2 nm (>20.5); LDL-C 52 mg/dL (0-99); LDL-P 749 nmol/L (<1000)
== END ==
PROVIDERS: Family Provider Internal Medicine; PCP Internal Medicine; Referring Provider Internal Medicine; Visit Provider Internal Medicine
DX: E55.9 Vitamin D deficiency, unspecified (principal); F41.9 Anxiety disorder, unspecified; D69.3 Immune thrombocytopenic purpura; E78.5 Hyperlipidemia, unspecified
CPT/HCPCS: 36415; 80061; 82306; 83704; 84443; 85025

== ENCOUNTER → 2019-02-12 13:30 | Outpatient (CLI) | payer OTHER, SELFPAY ==
[2019-01-30 10:43] VITALS: BMI 40.1
--- NOTE | 2019-02-12 13:30 | CT_ITS ---
STUDY: LOW DOSE CT LUNG CANCER SCREENING REASON FOR EXAM: Female, 58 years old. LUNG SCREENING, 19YR SMOKER X 1.5PPD, QUIT 10 YRS AGO, HX COLON CA RADIATION DOSAGE (If Supplied By Facility): CTDIvol = ( 4.02 ) mGy, DLP = ( 134.41 ) mGycm TECHNIQUE: No contrast was administered. Low dose technique was utilized (average mAS-38 and kVp 120). 1.25 mm axial source images with a slice interval of 1.25-mm were reconstructed in lung windows. 2.5 mm axial source images with a slice interval of 2.5-mm were reconstructed in lung windows. 5.0 mm axial source images with a slice interval of 5.0-mm were reconstructed in soft tissue windows. Nodule measured using lung windows on PACS and/or independent workstation with automated measurement of minimum and maximum diameter. Nodule measurement reported as average diameter rounded to the nearest whole number. Growth is defined as an increase ins size of greater than 1.5 mm. COMPARISON: 06/05/2016 NODULES: Total lung nodules (excluding granulomas): 0 Emphysema: Mild centrilobular emphysema predominantly in the upper lung zones. Endobronchial lesion: None Aorta: Minimal scattered atherosclerosis, normal axial dimension Coronary arteries: Mild atherosclerosis. Heart: Size Pulmonary artery: Unremarkable for unopacified technique. Mediastinal nodes: No mediastinal or hilar adenopathy. Other chest and abdominal findings: Cholecystectomy clips are identified. Atherosclerosis of the thoracic aorta. CT/Low Dose CT Lung Screening IMPRESSION: 1. Lung-RADS category 1 - Continue annual screening with LDCT in 12 months. 2. Atherosclerosis including mild coronary artery atherosclerosis. IMPORTANT NOTES FOR USE: ACR Lung-RADS Version 1.0 Assessment Categories Release Date: June 22, 2013 Category: Coded 0-4 bases on nodule(s) with highest degree of suspicion. Negative screen is defined as categories 1 and 2; a positive screen is defined as categories 3 and 4. Category 3 and 4A nodules that are unchanged on interval CT should be coded as category 2, and individuals returned to screening in 12 months. Category 4X: Category 3 or 4 nodules with additional imaging findings that increase the suspicion of lung cancer, such as spiculation, GGN that doubles in size in 1 year, enlarged lymph notes, etc. Category Modifiers: S (significant finding unrelated to lung cancer) and C (prior history of treated lung cancer) may be added to the 0-4 Lung-RADS Electronically Signed: Loi Smith MD (Brooks) at 9:55 EST , Service support ,
== END ==
PROVIDERS: Family Provider Internal Medicine; PCP Internal Medicine; Referring Provider Nurse Practitioner Acute Care; Visit Provider Nurse Practitioner Acute Care
DX: Z12.2 Encounter for screening for malignant neoplasm of respiratory organs (principal); Z87.891 Personal history of nicotine dependence
CPT/HCPCS: G0297

== ENCOUNTER → 2019-08-05 06:32 | Outpatient (CLI) | payer OTHER, SELFPAY ==
[2019-05-06 06:10] VITALS: BMI 38.5
--- NOTE | 2019-08-05 09:58 | PFTCOMP_ITS ---
COMPLETE PULMONARY FUNCTION TEST INTERPRETATION Brief HPI: Patient is a 59 year old female, currently under the care of myself, who presents to [facility] for complete pulmonary function tests secondary to diagnosis of dyspnea. Respiratory therapist reports good effort and reproducible results. Interpretation: Forced expiration spirometry shows a moderately severe large airways obstructive ventilatory defect with an FEV1 of 53% predicted. There is a significant bronchodilator response in FEV1 by strict ATS criteria. Spirograms are of good quality and plateau slowly, indicating slowly emptying areas of the lungs. The respiratory flow volume loop shows decreased expiratory flow rates at all lung volumes consistent with airway obstruction. Lung volumes by body plethysmography show a normal total lung capacity at 5.93 L, 108% predicted. FRC and RV are elevated out of proportion. Lung volume measurements are consistent with hyperinflation and air-trapping. Diffusion capacity by carbon monoxide is decreased at 53% predicted. The airway resistance is normal. Compared to previous pulmonary function tests from 07/29/2018, there has been no significant change. Impression: Partially reversible moderately severe large airways obstructive ventilatory defect with a symmetric reduction diffusing capacity, resulting in air trapping, and a pattern consistent with COPD/asthma overlap syndrome.
== END ==
PROVIDERS: PCP Internal Medicine; Referring Provider Internal Medicine Critical Care Medicine; Visit Provider Internal Medicine Critical Care Medicine
DX: J44.9 Chronic obstructive pulmonary disease, unspecified (principal); E88.01 Alpha-1-antitrypsin deficiency
CPT/HCPCS: 94060; 94726; 94729

== ENCOUNTER → 2019-08-06 10:27 | Outpatient (CLI) | payer OTHER, SELFPAY ==
[2019-05-06 06:10] VITALS: BMI 38.5
[2019-08-06 11:24] VITALS: PULSE 101; PULSE 102; PULSE 75; PULSE 94; O2SAT 89; O2SAT 90; O2SAT 91; O2SAT 94; O2SAT 95
--- NOTE | 2019-08-06 14:10 | PCM.PSN.6M ---
PSN 6 Minute Walk Test - 6 Minute Walk Test 6 Minute Walk Test: 6 Minute Walk Test PSN:6-Minute Walk Test Start: 08/06/19 11:24 Freq: Status: Active Protocol: RESP.6MINW Document 08/06/19 11:24 [facility] (Rec: 08/06/19 11:26 [facility] [id number]) 6 Minute Walk Test Date Performed 08/06/19 Time Performed 11:00 Height 5 ft 7.5 in Weight: 113.398 kg Weight in Pounds 250.[address]: Marcos Holder Assistive device used: None Pre-test Oxygen Delivery Method Room Air Pulse Ox (%) 95 Pulse Rate (60-100 beats/min) 75 Dyspnea Lilly Scale (0-10) 0 Exertion Lilly Scale (6-20) 6 1st minute Oxygen Delivery Method Room Air Pulse Ox (%) 94 Pulse Rate (60-100 beats/min) 94 2nd minute Oxygen Delivery Method Room Air Pulse Ox (%) 90 Pulse Rate (60-100 beats/min) 102 H 3rd minute Oxygen Delivery Method Room Air Pulse Ox (%) 89 Pulse Rate (60-100 beats/min) 102 H 4th minute Oxygen Delivery Method Room Air Pulse Ox (%) 90 Pulse Rate (60-100 beats/min) 102 H 5th minute Oxygen Delivery Method Room Air Pulse Ox (%) 91 Pulse Rate (60-100 beats/min) 101 H 6th minute Oxygen Delivery Method Room Air Pulse Ox (%) 90 Pulse Rate (60-100 beats/min) 102 H Dyspnea Lilly Scale (0-10) 3 Exertion Lilly Scale (6-20) 12 Post-test Oxygen Delivery Method Room Air Pulse Ox (%) 95 Pulse Rate (60-100 beats/min) 75 Full Laps Walked 18 Partial Lap, Number of Tiles Walked 20 Total Distance Walked (ft) 1082 - Interpretation Interpretation: The patient was able to ambulate 1082 feet over the course of 6 minutes on room air with no assistive devices or breaks. The patient did reach an oxygen monalisa of 89% with some associated tachycardia. These findings are consistent with a respiratory limitation exercise tolerance. - Recommendations Recommendations: No supplemental oxygen is indicated at this time. However, patient will need to be followed closely given level of desaturation.
== END ==
LOC: PSN 10:28
PROVIDERS: PCP Internal Medicine; Referring Provider Internal Medicine Critical Care Medicine; Visit Provider Internal Medicine Critical Care Medicine
DX: J44.9 Chronic obstructive pulmonary disease, unspecified (principal); E88.01 Alpha-1-antitrypsin deficiency
CPT/HCPCS: 94618

== ENCOUNTER → 2019-08-11 08:28 | Outpatient (CLI) | payer OTHER, SELFPAY ==
[2019-08-11 07:45] VITALS: BMI 38.5
--- NOTE | 2019-08-11 08:42 | CPS ---
Instructed to use at least 10 times and 4 times a day
== END ==
LOC: PSN 08:31
PROVIDERS: PCP Internal Medicine; Referring Provider Nurse Practitioner Acute Care; Visit Provider Nurse Practitioner Acute Care
DX: J47.9 Bronchiectasis, uncomplicated (principal)
CPT/HCPCS: 94667

== ENCOUNTER → 2019-12-05 08:35 | Outpatient (CLI) | payer OTHER, SELFPAY ==
[2019-08-11 07:45] VITALS: BMI 38.5
[2019-12-05 08:41] LABS: Mucous, Urine 0 SEEN /hpf (<or=2+)
[2019-12-05 08:58] LABS: Absolute Lymphocyte Count 2.54 X10^3/uL (0.83-4.51); Absolute Neutrophil Count 5.5 X10^3/uL (2.0-7.7); Basophil# 0.05 X10^3/uL; Basophil% 0.6 % (0-1); Eosinophil# 0.33 X10^3/uL; Eosinophils% 3.7 % (0-5); Hematocrit 43.1 % (37-47); Hemoglobin 13.3 g/dL (12.0-15.0); Lymphocyte # 2.54 X10^3/ul (4.0); Lymphocyte % 28.2 % (19-41); Mean Corp Hgb Conc 30.9 g/dL (32-36); Mean Corpuscular Hgb 26.7 pg (27.0-32.0); Mean Corpuscular Volume 86.4 fL (81-99); Mean Platelet Vol. 11.3 fl (6.2-12.0); Monocyte# 0.54 X10^3/uL; NRBC Flagged by Analyzer 0 % (0-5); Neutrophil # 5.52 X10^3/uL (2.7-7.7); Neutrophil % 61.3 % (47-70); Platelet Count 114 K/mm3 (150-450); RBC Distribution Width CV 13.9 % (11.6-14.6); RBC Distribution Width SD 43.8 fl (35.1-43.9); Red Blood Count 4.99 M/mm3 (4.2-5.4)
[2019-12-05 09:07] LABS: Color, Urine Yellow (Yellow); Glucose, Dipstick Normal (Normal); Ketone-Dipstick Negative (Negative); Leukocyte Esterase-Dipstick 25 /ul (Negative); Nitrite-Dipstick Negative (Negative); Occult Blood-Urine 10 /ul (Negative); Protein-Dipstick Negative (Negative); Urine Bilirubin Dipstick Negative (Negative); Urine Clarity Clear (Clear); Urine Urobilinogen Normal (Normal)
[2019-12-05 09:25] LABS: Hemoglobin A1c 6.4 % (3.8-5.6)
[2019-12-05 09:29] LABS: ALB/GLOB Ratio 1.1 RATIO (0.9-2.4); AST(SGOT) 28 U/L (15-37); Alanine Aminotransfer ALT/SGPT 34 U/L (13-56); Albumin, Serum 3.9 g/dL (3.2-5.0); Alkaline Phosphatase 160 U/L (45-117); Anion Gap 5 (5-15); BUN 9 mg/dL (7-18); BUN/Creat Ratio 11.4 RATIO (10-20); Calcium,Total 9.2 mg/dL (8.5-10.1); Chloride 108 mmol/L (98-107); Cholesterol 130 mg/dL (200); Creatinine, Serum 0.79 mg/dL (0.55-1.02); EST Glomerular Filtration Rate 79 mL/min (>60); Est Glom Filt Rate - Afr Amer 96 mL/min (>60); Globulin 3.5 g/dL (2.2-4.2); Glucose 127 mg/dL (74-106); High Density Lipoprotein 60 mg/dL; Potassium 3.9 mmol/L (3.5-5.1); Protein, Total 7.4 g/dL (6.4-8.2); Sodium Level 141 mmol/L (136-145); Thyroid Stim Hormone (TSH) 2.11 uIU/mL (0.358-3.74); Triglycerides 120 mg/dL; Very Low Density Lipoprotein 24 mg/dL (5-40)
[2019-12-05 09:32] LABS: Microalbumin,Random Urine 15.2 mg/L (NO RANGE EST.); Microalbumin:Creatinine Ratio 25.7 mg/g CRE (<30 mg/g CRE)
[2019-12-05 09:44] LABS: Bacteria 1+ /hpf (None Seen); Squamous Epithelial Cells - UA 0-5 SEEN /hpf (5-10); White Blood Cells 0-5 SEEN /hpf (0-5)
[2019-12-07 12:43] LABS: Vitamin D,25 Hydroxy 51.9 ng/mL
== END ==
PROVIDERS: PCP Internal Medicine; Referring Provider Internal Medicine; Visit Provider Internal Medicine
DX: E11.9 Type 2 diabetes mellitus without complications (principal)
CPT/HCPCS: 36415; 80053; 80061; 81001; 82043; 82306; 82570; 83036; 84443; 85025

== ENCOUNTER → 2020-06-17 09:50 | Outpatient (CLI) | payer OTHER, SELFPAY ==
[2020-02-10 07:31] VITALS: BMI 40.8
[2020-06-17 10:15] LABS: Absolute Lymphocyte Count 2.15 X10^3/uL (0.83-4.51); Absolute Neutrophil Count 3.4 X10^3/uL (2.0-7.7); Basophil# 0.05 X10^3/uL; Basophil% 0.8 % (0-1); Eosinophil# 0.16 X10^3/uL; Eosinophils% 2.6 % (0-5); Hematocrit 39.7 % (37-47); Hemoglobin 12.3 g/dL (12.0-15.0); Lymphocyte # 2.15 X10^3/ul (0.83-4.51); Lymphocyte % 34.6 % (19-41); Mean Corpuscular Hgb 27.3 pg (27.0-32.0); Mean Platelet Vol. 11.3 fl (6.2-12.0); Monocyte# 0.42 X10^3/uL; Monocyte% 6.8 % (0-10); NRBC Flagged by Analyzer 0 % (0-5); Neutrophil # 3.38 X10^3/uL (2.7-7.7); Neutrophil % 54.4 % (47-70); Platelet Count 145 K/mm3 (150-450); RBC Distribution Width CV 13.8 % (11.6-14.6); RBC Distribution Width SD 44.4 fl (35.1-43.9); Red Blood Count 4.51 M/mm3 (4.2-5.4); White Blood Count 6.2 K/mm3 (4.4-11.0)
[2020-06-17 10:33] LABS: Hemoglobin A1c 6.2 % (3.8-5.6)
[2020-06-17 10:46] LABS: Vitamin D,25 Hydroxy 54.3 ng/mL
[2020-06-17 11:05] LABS: ALB/GLOB Ratio 1.1 RATIO (0.9-2.4); AST(SGOT) 30 U/L (15-37); Alanine Aminotransfer ALT/SGPT 39 U/L (13-56); Albumin, Serum 3.7 g/dL (3.2-5.0); Alkaline Phosphatase 137 U/L (45-117); Anion Gap 7 (5-15); BUN 7 mg/dL (7-18); Calcium,Total 8.8 mg/dL (8.5-10.1); Chloride 107 mmol/L (98-107); Cholesterol 109 mg/dL (200); Creatinine, Serum 0.64 mg/dL (0.55-1.02); EST Glomerular Filtration Rate 101 mL/min (>60); Est Glom Filt Rate - Afr Amer 122 mL/min (>60); Globulin 3.4 g/dL (2.2-4.2); Glucose 121 mg/dL (74-106); High Density Lipoprotein 51 mg/dL; Potassium 3.9 mmol/L (3.5-5.1); Protein, Total 7.1 g/dL (6.4-8.2); Sodium Level 140 mmol/L (136-145); Thyroid Stim Hormone (TSH) 1.84 uIU/mL (0.358-3.74); Triglycerides 122 mg/dL; Very Low Density Lipoprotein 24 mg/dL (5-40)
== END ==
LOC: LAB 09:52
PROVIDERS: PCP Internal Medicine; Visit Provider Internal Medicine
DX: E55.9 Vitamin D deficiency, unspecified (principal); D69.3 Immune thrombocytopenic purpura; E11.9 Type 2 diabetes mellitus without complications; E78.5 Hyperlipidemia, unspecified
CPT/HCPCS: 36415; 80053; 80061; 82306; 83036; 84443; 85025

== ENCOUNTER → 2020-06-30 15:28 | Outpatient (CLI) | payer OTHER, SELFPAY ==
[2020-02-10 07:31] VITALS: BMI 40.8
--- NOTE | 2020-06-30 15:29 | BI_ITS ---
MAMMOGRAPHY - BILATERAL SCREENING REASON FOR EXAM: Female, 59 years old. Routine annual screening examination. PERTINENT HISTORY: Non-contributory. TECHNIQUE: Digital bilateral breast layla (3D mammographic acquisition) in the CC and MLO projections. 2-D mediolateral oblique (MLO) and craniocaudad (CC) views of both breasts were obtained. CAD: Full Field Digital Mammography with Computer Added Detection was performed. COMPARISON: Comparison is made with prior examination 10/18/2014 and 02/10/2013. FINDINGS: Breast Composition: There are scattered areas of fibroglandular density. There are no dominant masses or suspicious calcifications. Stable small benign appearing bilateral axillary lymph nodes. No other significant abnormalities are identified. There has been no significant change since the prior study. BI/SCRN MAMM (CAD)W/LAYLA BILAT IMPRESSION: Stable bilateral screening mammogram. Yearly follow-up mammogram recommended. (A) ASSESSMENT CATEGORY: BIRADS Category 2: Benign. A letter regarding these results will be sent to the patient by the facility within 30 days. Approximately 10% of breast cancers are not detected by mammography. A normal mammogram should not delay biopsy of a clinically suspicious abnormality. [id number] Electronically Signed: Cy Mena MD at 8:37 EDT , Service support ,
== END ==
PROVIDERS: PCP Internal Medicine; Visit Provider Internal Medicine
DX: Z12.31 Encounter for screening mammogram for malignant neoplasm of breast (principal); Z78.0 Asymptomatic menopausal state
CPT/HCPCS: 77063; 77067

== ENCOUNTER → 2020-08-03 14:35 | Outpatient (CLI) | payer OTHER, SELFPAY ==
[2020-07-26 07:36] VITALS: BMI 38.5
--- NOTE | 2020-08-03 14:40 | CT_ITS ---
STUDY: LOW DOSE CT LUNG CANCER SCREENING REASON FOR EXAM: Female, 60 years old. smoker and gt; 40 pack years quit 13 years ago RADIATION DOSAGE (If Supplied By Facility): CTDIvol = ( 4.02 ) mGy, DLP = ( 125.87 ) mGycm TECHNIQUE: Transaxial imaging was performed without the administration of intravenous contrast material. Individualized dose optimization techniques were used for this CT. COMPARISON: 02/12/2019 CT chest. FINDINGS: Heart and great vessels: Heart size normal. No aneurysm of the thoracic aorta. Coronary artery atherosclerosis. Lungs, pleura, airways: Small, 4 to 5 mm, tree-in-bud subpleural nodules in the lateral segment of the right middle lobe and in the mid lateral aspect of the left lower lobe and in the lingula. Mild emphysema and bronchial wall thickening. No consolidation, pneumothorax or pleural effusion. Mediastinum: No adenopathy or mass or hematoma. Osseous:No fracture or acute osseous abnormality. Chest wall: No concerning findings. Upper abdomen: No acute findings. CT/Low Dose CT Lung Screening IMPRESSION: Mild emphysema, bronchitis, and bronchiolitis. Lung-RADS Category 2. Continued annual surveillance suggested. IMPORTANT NOTES FOR USE: ACR Lung-RADS Version 1.1 Assessment Categories Release Date: 2018 Category: Coded 0-4 bases on nodule(s) with highest degree of suspicion. Negative screen is defined as categories 1 and 2; a positive screen is defined as categories 3 and 4. Category 3 and 4A nodules that are unchanged on interval CT should be coded as category 2, and individuals returned to screening in 12 months. Category 4X: Category 3 or 4 nodules with additional imaging findings that increase the suspicion of lung cancer, such as spiculation, GGN that doubles in size in 1 year, enlarged lymph notes, etc. Category Modifiers: S (significant finding unrelated to lung cancer) Electronically Signed: Alex Rodriguez MD at 2:05 EDT Tel , Service support ,
== END ==
LOC: CT 14:36
PROVIDERS: PCP Internal Medicine; Referring Provider Nurse Practitioner Acute Care; Visit Provider Nurse Practitioner Acute Care
DX: Z12.2 Encounter for screening for malignant neoplasm of respiratory organs (principal); F17.200 Nicotine dependence, unspecified, uncomplicated
CPT/HCPCS: 71271

== ENCOUNTER → 2020-12-26 07:54 | Outpatient (CLI) | payer OTHER, SELFPAY ==
[2020-07-26 07:36] VITALS: BMI 38.5
--- NOTE | 2020-12-28 14:17 | PFTCOMP ---
INTRODUCTION: The patient is a 60-year-old female that presents for pulmonary function studies secondary to a diagnosis of COPD. Respiratory therapy reported good patient effort. Bronchodilators were used during testing. INTERPRETATION: Forced expiration spirometry demonstrates the presence of a severe large airways obstructive ventilatory defect. There was no significant response to aerosolized bronchodilators. Spirograms are of good quality but do not plateau indicating slow emptying of the lungs. Body plethysmography was performed and revealed an elevated TLC and RV, indicative of underlying hyperinflation and air trapping. Diffusing capacity by single breath CO is reduced at 49% of predicted. IMPRESSION: Irreversible severe large airways obstructive ventilatory defect with associated hyperinflation, air trapping and symmetric reduction in diffusing capacity.
== END ==
LOC: PSN 07:57
PROVIDERS: PCP Internal Medicine; Referring Provider Nurse Practitioner Acute Care; Visit Provider Nurse Practitioner Acute Care
DX: J44.9 Chronic obstructive pulmonary disease, unspecified (principal)
CPT/HCPCS: 94060; 94726; 94729

== ENCOUNTER → 2021-07-03 | Outpatient (CLI) | payer OTHER, SELFPAY ==
--- NOTE | 2021-07-03 15:41 | BI_ITS ---
MAMMOGRAPHY - BILATERAL SCREENING REASON FOR EXAM: Female, 61 years old. Routine annual screening examination. PERTINENT HISTORY: Non-contributory. TECHNIQUE: Digital bilateral breast layla (3D mammographic acquisition) in the CC and MLO projections. 2-D mediolateral oblique (MLO) and craniocaudad (CC) views of both breasts were obtained. CAD: Full Field Digital Mammography with Computer Added Detection was performed. COMPARISON: Comparison is made with prior study dated 06/30/2020 and 10/18/2014. FINDINGS: Breast Composition: There are scattered areas of fibroglandular density. There are no dominant masses or suspicious calcifications. Stable small benign appearing bilateral axillary No other significant abnormalities are identified. There has been no significant change since the prior study. BI/SCRN MAMM (CAD)W/LAYLA BILAT IMPRESSION: Stable bilateral screening mammogram. Yearly follow-up mammogram recommended. (A) ASSESSMENT CATEGORY: BIRADS Category 2: Benign. A letter regarding these results will be sent to the patient by the facility within 30 days. Approximately 10% of breast cancers are not detected by mammography. A normal mammogram should not delay biopsy of a clinically suspicious abnormality. [id number] Electronically Signed: Cy Mena MD at 8:03 EDT ,
== END | disposition home or self-care (01) ==
LOC: OPBI 15:40
PROVIDERS: PCP Internal Medicine; Visit Provider Internal Medicine
DX: Z12.31 Encounter for screening mammogram for malignant neoplasm of breast (principal)
CPT/HCPCS: 77063; 77067

== ENCOUNTER → 2021-07-27 | Outpatient (CLI) | payer OTHER, SELFPAY ==
[2021-07-27 09:43] LABS: Absolute Lymphocyte Count 2.24 X10^3/uL (0.83-4.51); Absolute Neutrophil Count 4.2 X10^3/uL (2.0-7.7); Basophil# 0.05 X10^3/uL; Basophil% 0.7 % (0-1); Eosinophil# 0.21 X10^3/uL; Eosinophils% 2.9 % (0-5); Hematocrit 40.5 % (37-47); Hemoglobin 13.1 g/dL (12.0-15.0); Lymphocyte # 2.24 X10^3/ul (0.83-4.51); Lymphocyte % 30.9 % (19-41); Mean Corp Hgb Conc 32.3 g/dL (32-36); Mean Corpuscular Hgb 27.8 pg (27.0-32.0); Mean Corpuscular Volume 85.8 fL (81-99); Mean Platelet Vol. 11.6 fl (6.2-12.0); Monocyte# 0.55 X10^3/uL; Monocyte% 7.6 % (0-10); NRBC Flagged by Analyzer 0 % (0-5); Neutrophil # 4.18 X10^3/uL (2.7-7.7); Neutrophil % 57.5 % (47-70); Platelet Count 119 K/mm3 (150-450); RBC Distribution Width SD 44.2 fl (35.1-43.9); Red Blood Count 4.72 M/mm3 (4.2-5.4); White Blood Count 7.3 K/mm3 (4.4-11.0)
[2021-07-27 09:45] LABS: Bacteria 0 SEEN /hpf (None Seen); Mucous, Urine 0 SEEN /hpf (<or=2+); Red Blood Cells-Urine 0 SEEN /hpf (0-5); White Blood Cells 0 SEEN /hpf (0-5)
[2021-07-27 09:50] LABS: Color, Urine Yellow (Yellow); Glucose, Dipstick Normal (Normal); Ketone-Dipstick Negative (Negative); Leukocyte Esterase-Dipstick 25 /ul (Negative); Nitrite-Dipstick Negative (Negative); Occult Blood-Urine 10 /ul (Negative); Protein-Dipstick Negative (Negative); Specific Gravity, Urine 1.015 (1.002-1.030); Urine Bilirubin Dipstick Negative (Negative); Urine Clarity Clear (Clear); Urine Urobilinogen Normal (Normal)
[2021-07-27 09:52] LABS: ALB/GLOB Ratio 1.2 RATIO (0.9-2.4); AST(SGOT) 15 U/L (15-37); Alanine Aminotransfer ALT/SGPT 29 U/L (13-56); Alkaline Phosphatase 111 U/L (45-117); Anion Gap 7 (5-15); BUN 11 mg/dL (7-18); BUN/Creat Ratio 16.6 RATIO (10-20); Calcium,Total 9.6 mg/dL (8.5-10.1); Chloride 107 mmol/L (98-107); Cholesterol 112 mg/dL (200); Creatinine, Serum 0.66 mg/dL (0.55-1.02); EST Glomerular Filtration Rate 96 mL/min (>60); Est Glom Filt Rate - Afr Amer 117 mL/min (>60); Globulin 3.2 g/dL (2.2-4.2); Glucose 117 mg/dL (74-106); High Density Lipoprotein 49 mg/dL; Potassium 4.1 mmol/L (3.5-5.1); Protein, Total 7.2 g/dL (6.4-8.2); Sodium Level 140 mmol/L (136-145); Triglycerides 165 mg/dL; Very Low Density Lipoprotein 33 mg/dL (5-40)
[2021-07-27 09:57] LABS: Squamous Epithelial Cells - UA 0-5 SEEN /hpf (5-10)
[2021-07-27 10:25] LABS: Microalbumin,Random Urine 9.3 mg/L (NO RANGE EST.); Microalbumin:Creatinine Ratio 17.6 mg/g CRE (<30 mg/g CRE)
[2021-07-27 13:43] LABS: Vitamin D,25 Hydroxy 56.9 ng/mL
== END | disposition home or self-care (01) ==
LOC: PAVLAB 09:12
PROVIDERS: PCP Internal Medicine; Referring Provider Internal Medicine; Visit Provider Internal Medicine
DX: E55.9 Vitamin D deficiency, unspecified (principal); E11.9 Type 2 diabetes mellitus without complications
CPT/HCPCS: 36415; 80053; 80061; 81001; 82043; 82306; 82570; 85025

== ENCOUNTER → 2021-07-31 | Outpatient (CLI) | payer OTHER, SELFPAY | END | disposition home or self-care (01) | LOC: LAB 14:41 | PROVIDERS: PCP Internal Medicine; Referring Provider Internal Medicine; Visit Provider Internal Medicine | DX: R39.9 Unspecified symptoms and signs involving the genitourinary system (principal) | CPT/HCPCS: 87077; 87086; 87088; 87186 ==

== ENCOUNTER → 2021-09-23 | Outpatient (CLI) | payer OTHER, SELFPAY ==
[2021-09-23 09:54] LABS: Mucous, Urine 0 SEEN /hpf (<or=2+)
[2021-09-23 11:16] LABS: Bacteria RARE /hpf (None Seen); Color, Urine Yellow (Yellow); Glucose, Dipstick NEGATIVE (Normal); Ketone-Dipstick Negative (Negative); Leukocyte Esterase-Dipstick 100 /ul (Negative); Nitrite-Dipstick Negative (Negative); Occult Blood-Urine 10 /ul (Negative); Protein-Dipstick Negative (Negative); Red Blood Cells-Urine 0-5 SEEN /hpf (0-5); Squamous Epithelial Cells - UA 0-5 SEEN /hpf (5-10); Urine Bilirubin Dipstick Negative (Negative); Urine Clarity Sl Cldy (Clear); Urine Urobilinogen Normal (Normal); White Blood Cells 0-5 SEEN /hpf (0-5)
== END | disposition home or self-care (01) ==
LOC: LAB 09:46
PROVIDERS: PCP Internal Medicine; Visit Provider Internal Medicine
DX: R31.9 Hematuria, unspecified (principal)
CPT/HCPCS: 81001

== ENCOUNTER → 2022-01-17 | Outpatient (CLI) | payer OTHER, SELFPAY ==
[2022-01-17 08:43] LABS: Absolute Lymphocyte Count 2.37 X10^3/uL (0.83-4.51); Absolute Neutrophil Count 3.9 X10^3/uL (2.0-7.7); Basophil# 0.05 X10^3/uL; Basophil% 0.7 % (0-1); Eosinophil# 0.21 X10^3/uL; Hematocrit 41.2 % (37-47); Hemoglobin 12.8 g/dL (12.0-15.0); Lymphocyte # 2.37 X10^3/ul (0.83-4.51); Lymphocyte % 33.8 % (19-41); Mean Corp Hgb Conc 31.1 g/dL (32-36); Mean Corpuscular Hgb 27.2 pg (27.0-32.0); Mean Corpuscular Volume 87.7 fL (81-99); Mean Platelet Vol. 10.4 fl (6.2-12.0); Monocyte# 0.46 X10^3/uL; Monocyte% 6.6 % (0-10); NRBC Flagged by Analyzer 0 % (0-5); Neutrophil % 55.5 % (47-70); Platelet Count 127 K/mm3 (150-450); RBC Distribution Width SD 45.2 fl (35.1-43.9)
[2022-01-17 09:13] LABS: Color, Urine Yellow (Yellow); Glucose, Dipstick Normal (Normal); Ketone-Dipstick Negative (Negative); Leukocyte Esterase-Dipstick 25 /ul (Negative); Microalbumin,Random Urine 36.4 mg/L (NO RANGE EST.); Microalbumin:Creatinine Ratio 36.5 mg/g CRE (<30 mg/g CRE); Nitrite-Dipstick Negative (Negative); Occult Blood-Urine 10 /ul (Negative); Protein-Dipstick 15 mg/dl (Negative); Specific Gravity, Urine 1.025 (1.002-1.030); Urine Bilirubin Dipstick Negative (Negative); Urine Clarity Sl. Cloudy (Clear); Urine Urobilinogen Normal (Normal)
[2022-01-17 09:26] LABS: ALB/GLOB Ratio 1.2 RATIO (0.9-2.4); AST(SGOT) 23 U/L (15-37); Alanine Aminotransfer ALT/SGPT 31 U/L (13-56); Albumin, Serum 3.9 g/dL (3.2-5.0); Alkaline Phosphatase 118 U/L (45-117); Anion Gap 7 (5-15); BUN 16 mg/dL (7-18); BUN/Creat Ratio 21.9 RATIO (10-20); Calcium,Total 8.6 mg/dL (8.5-10.1); Chloride 109 mmol/L (98-107); Cholesterol 108 mg/dL (200); Creatinine, Serum 0.73 mg/dL (0.55-1.02); EST Glomerular Filtration Rate 86 mL/min (>60); Est Glom Filt Rate - Afr Amer 104 mL/min (>60); Globulin 3.2 g/dL (2.2-4.2); Glucose 134 mg/dL (74-106); High Density Lipoprotein 52 mg/dL; Potassium 3.9 mmol/L (3.5-5.1); Protein, Total 7.1 g/dL (6.4-8.2); Sodium Level 140 mmol/L (136-145); Thyroid Stim Hormone (TSH) 1.32 uIU/mL (0.358-3.74); Triglycerides 94 mg/dL; Very Low Density Lipoprotein 19 mg/dL (5-40)
== END | disposition home or self-care (01) ==
LOC: PAVLAB 08:16
PROVIDERS: PCP Internal Medicine; Referring Provider Internal Medicine; Visit Provider Internal Medicine
DX: D69.3 Immune thrombocytopenic purpura (principal); E11.9 Type 2 diabetes mellitus without complications; E78.5 Hyperlipidemia, unspecified; E55.9 Vitamin D deficiency, unspecified
CPT/HCPCS: 36415; 80053; 80061; 81002; 82043; 82306; 82570; 84443; 85025

== ENCOUNTER 2022-02-15 06:25 | Day surgery (SDC) | payer OTHER, SELFPAY ==
[2022-02-15] VITALS (7 sets, daily range): BP systolic 106–147; BP diastolic 78–87; PULSE 81–92; RESP 16–18; TEMP 36.3–36.8; O2SAT 95–97; BMI 42.7
[2022-02-15] MEDS: Lactated Ringers 1,000 ML 15 ML IV (07:22)
[2022-02-15 07:25] LABS: Bedside Glucose 130 mg/dL (74-106)
--- NOTE | 2022-02-15 07:26 | HP.PCM_ITS ---
History and Physical Date of Service:? 12/28/21 MR#: [id number] Acct: [id number] Name:? SHANTE VAZ Rep #: [id number] : 1960 ? ? Provider: Dr. João Chavira MD Age/Sex:? 61/F ? ? Location: [facility] Status: Signed Intake Vital Signs ? 12/28/2213:45 Height 5 ft 8 in Weight: 277 lb BMI 42.1 BP 133/83 H Blood Pressure Location Rt popliteal Position Sitting Respiration 17 Pulse 92 Pulse Source Monitor Temp 97.4 F L Temp Source Temporal Pulse Oximetry (%) 95 Oxygen Delivery Method room air Intake Visit Reasons:?COLONOSCOPY Chief Complaint: colonoscopy Allergies No Known Allergies Allergy (Verified 12/28/21 14:47) Medications cholecalciferol (vitamin D3) 50 mcg (2,000 unit) capsule 4,000 unit PO DAILY 11/15/17 [History Confirmed 12/28/21] lorazepam 0.5 mg tablet (Ativan) 0.5 mg PO DAILY PRN 11/15/17 [History Confirmed 12/28/21] metformin 500 mg tablet 500 mg PO DAILY 11/15/17 [History Confirmed 12/28/21] PEP device #1 ea 08/11/19 [Rx Confirmed 12/28/21] prednisone 10 mg tablet 10 mg PO DAILY #20 tabs 01/25/21 [Rx Confirmed 12/28/21] albuterol sulfate 2.5 mg/3 mL (0.083 %) solution for nebulization 2.5 mg (3 mL) inhalation Q4H PRN shortness of breath or wheezing #180 vials 07/27/21 [Rx Confirmed 12/28/21] albuterol sulfate 90 mcg/actuation aerosol inhaler (Proventil HFA) 2 inh inhalation Q6H PRN shortness of breath or wheezing #18 grams 07/27/21 [Rx Confirmed 12/28/21] fluticasone fur. 100 mcg-umeclid 62.5 mcg-vilant 25 mcg inhalat.powder (Trelegy Ellipta) 1 inh inhalation DAILY #60 ea 07/27/21 [Rx Confirmed 12/28/21] montelukast 10 mg tablet 10 mg PO QPM #30 tabs 07/27/21 [Rx Confirmed 12/28/21] [facility] Medical History? Acute bronchitis Anxiety Apnea Axillary lymphadenopathy Chronic idiopathic thrombocytopenia COLD (chronic obstructive lung disease) GERD (gastroesophageal reflux disease) GERD without esophagitis Hematuria History of colon cancer History of MRSA infection HLD (hyperlipidemia) Lung nodule Obesity Premature beats Sleep disorder Type 2 diabetes mellitus Vitamin D deficiency Surgical History? H/O dilation and curettage H/O right hemicolectomy H/O tubal ligation History of tonsillectomy Hx of cholecystectomy Family History? Mother HLD (hyperlipidemia) Anxiety Depression Alzheimers disease Social History? Smoking Status:? Former smoker quit date: 02/25/06 pack-years: 25 second hand exposure:? Yes alcohol intake:? current alcohol intake frequency: holidays/special occasions only substance use type:? does not use HPI HPI HPI: ?Patient is a 61-year-old female who presents for need to schedule surveillance colonoscopy secondary to history of colon cancer treated in [address] Cordero.? She reports a surveillance colonoscopy approximately 2 years after her cancer diagnosis.? She states this was occasioned by also a diagnostic concern that she had started bleeding again.? She recalls that it was ultimately determined to be hemorrhoids as the cause of this bleeding.? She estimates this was one of the last if not the last colonoscopy she had and she recalls waking up during one of them, but then states she believes she is 2 to 3 years overdue from her recommended follow-up colonoscopy at 5 years.? In terms of her cancer treatment, patient underwent chemotherapy through Dr. Poole, but did not require radiation.? She reports that she had previously followed with Dr. Poole for diagnosis of ITP she reports that she has not followed with Dr. Poole for several years due to insurance change, but happily reports that her most recent platelet count was within normal limits with Dr. Escobar approximately 3 months ago.? She also denies any recent issues with anemia. Outside of the above, Mrs. Vaz denies any significant issues with her recent bowel movements.? She reports that she has looser stools, but no incontinence.? She is not troubled by her looser stools as she reviews that she had 17 inches of her colon removed and is on metformin.? With this she denies any intermittent constipation.? She also denies noting any bright red blood or dark blood per rectum.? She has not noticed any caliber changes to her stools.? She does not use any supplemental dietary fiber.? She is not prescribed any blood thinners. Patient has no family history of colon cancer, inflammatory bowel disease, or diverticulitis.? ? The patient's weight is not stable as she states that she has had some recent intentional weight loss but then quickly regains it when she lets up on her efforts with dieting. Relevant prior abdominal surgical history includes: Laparoscopic right he micolectomy as discussed above and laparoscopic cholecystectomy Patient does have a significant history of GERD.? She reports that she experiences heartburn 3-4 times a week and uses Tums to help with the symptoms.? She reports the symptoms occur more at night and occasionally wakes her up from sleep?particularly after spicy meals.? She states this is never been checked out.? Additional food triggers include spaghetti sauce and pizza.? She has never maintained any regular use of proton pump inhibitor medications.? The symptoms are associated with some occasional bloating but no nausea. Patient has a history of COPD after smoking for many years, but underwent smoking cessation 14 years ago.? She follows with Dr. Holder of pulmonology here with [facility].? She reports COPD exacerbations that correlate with season changes.? She denies any issues with sedation or anesthesia during recent procedures. ROS General General: Yes colon cancer; No weight change, appetite, fatigue, breast cancer or weakness Additional Details: Had colon cancer approx 10 years ago. HEENT HEENT: No difficulty swallowing, eye injury, eye surgery, swollen glands or hoarseness Endo Endocrine: Yes diabetes mellitus; No thyroid disease, thyroid cancer, Hair loss, heat intolerance or cold intolerance Skin Skin: No rash or changing moles Breast Breast: No left breast lump, right breast lump, nipple discharge, breast pain, abnormal mammogram, abnormal US or breast enlargement Musc Musculoskeletal: No back problems, arthritis, rheumatoid arthritis, gout or joint pain Cardio Cardiovascular: No murmur, pacemaker, heart disease, atrial fibrillation, high blood pressure, heart attack, heart stent, palpitations, shortness of breat with exertion or chest pain Psych Psychiatric: No depression, anxiety or hearing voices Resp Respiratory: Yes shortness of breath, No sleep apnea, No cough, Yes COPD, No asthma, No emphysema and No wheezing Additional Details: has c-pap uses at times Gastro Gastrointestinal: No abdominal pain, No nausea or vomiting, Yes diarrhea, No constipation, No blood in stool, No acid reflux, No hemorrhoids, No ulcers, No gallbladder problem and No black,tarry stools Cam Hematologic: No blood thinners, No blood disorders, No bleeding, No anemia and No blood clots Neuro Neurologic: No system reviewed and no additional complaints, except as documented, No as per HPI, No abnormal gait, No abnormal hearing, No abnormal movements, No abnormal speech, No behavioral changes, No burning sensations, No confusion, No convulsions, No disequilibrium, No dizziness, No localized weakness, No frequent falls, No headache(s), No lack of coordination, No loss of vision, No memory loss, No numbness, No other visual disturbances, No radicular pain, No restless legs, No sensory deficit, No syncope, No tingling, No tremor(s), No weakness and No other Exam Const General: cooperative, comfortable and no acute distress Nutritional Appearance: overweight Orientation: alert, awake and oriented x3 Resp Effort & Inspection: normal respiratory effort Auscultation: clear to auscultation bilaterally, no rhonchi, no wheezes and no rubs Tactile Fremitus: tactile fremitus absent GI Other: Overweight, well-healed mini midline laparotomy incision.? Nondistended.? Soft and nontender to palpation x4 quadrants. Assessment and Plan Assessment and Plan (1) History of colon cancer: ?Status:?Chronic ?Comment: This is a 61-year-old female with a history of T3 N0 M0 cecal cancer that was resected via laparoscopic right hemicolectomy by Dr. Cordero on 10/15/2012.? Patient underwent adjuvant chemotherapy but no radiation.? She reports 1 interval colonoscopy at 2 years postdiagnosis.? She estimates that she is 2 to 3 years overdue for repeat colonoscopy?which had been recommended at 5 years.? Patient explains that insurance changes and the recent pandemic played into this delay.? Patient denies any significant changes to her bowel habits.? Given her history and that she is overdue from her last exam, recommend repeat surveillance colonoscopy at first mutually available date. Her last exam ?Plan: Surveillance colonoscopy under local MAC after split bowel prep.? Patient is advised that she will require local company truck driver for the day of the procedure and informed about the lag time to results for any pathologic processing. (2) GERD (gastroesophageal reflux disease): ?Status:?Chronic ?Comment: Patient with longstanding history of frequent heartburn/reflux.? Today she is just manage this symptomatically.? Coupled with her prior smoking history and planned update surveillance colonoscopy, I find it prudent to perform an EGD simultaneous with her colonoscopy.? Patient is advised to limit food triggers in the meantime. ?Plan: Diagnostic EGD under local MAC to be done along with colonoscopy as discussed above (3) History of ITP: ?Status:?Acute ?Comment: Patient reports stability in this diagnosis with most recent platelet count of 143.? However, she states this was last investigated 3 months ago.? In anticipation of possible mucosal biopsies?and thereby mucosal bleeding?I would like to see a more up-to-date value. ?Plan: Repeat patient's CBC prior to colonoscopy and EGD I have reexamined the patient and confirmed there have been no interval health changes. Patient reports prep was completed successfully and output is now clear. Neither patient nor her spouse have further questions. Will proceed to endoscopy suite for EGD and colonoscopy under local MAC as described above.
--- NOTE | 2022-02-15 07:30 | EGD_PTH ---
PATIENT: SHANTE CROW LOC: EN U#:[id number] AGE/SX: 61/F ROOM: RE02/15/[address]: Dr. João Chavira MD : 1960 BED: DIS: 02/15/2022 SPEC #: [id number] RECD: 02/15/22 09:19 STATUS: LATRICIA LOLI #: [id number] BENJAMIN: 02/15/22 07:[address]: João Chavira DEPT: SURGICAL PATHOLOGY RECD BY: Marlen Ronquillo ENTERED: 02/15/22 12:42 SP TYPE: EGD BIOPSY OT DR: Dr. Cyndi Escobar DO Tissues: A - Pylorus B - Gastric mucous membrane C - Esophagus, NOS Procedures: Special Stain Group II Surgery Specimen Level IV Alcian Blue/PAS (control) HEADER OPERATION: Colonoscopy, EGD [place] [place] PRE-OP DIAGNOSIS: History of colon cancer, GERD TISSUE SUBMITTED: A ? Prepyloric nodule biopsy, B ? Antrum biopsy for histo and H. pylori, C ? Gastroesophageal junction biopsy MICROSCOPIC DIAGNOSIS A. Prepyloric nodule, biopsy: Mild gastritis. Negative for malignancy. See microscopic description. B. Antrum, biopsy: Mild gastritis. See microscopic description and comment. C. Gastroesophageal junction, biopsy: Fragments of gastroesophageal mucosa with chronic inflammation. Intestinal metaplasia (goblet cell metaplasia) not identified. See comment. SJ:dinesh 02/16/2022 COMMENT B. The results of immunohistochemistry for Helicobacter pylori will be reported separately ([id number]). C. Alcian blue/PAS stain with matched control is used in the evaluation of the specimen. MICROSCOPIC DESCRIPTION Slides are reviewed. A & B. The specimen shows fragments of gastric mucosa with chronic inflammatory cell infiltrates in the lamina propria consisting of lymphocytes and plasma cells, consistent with mild chronic gastritis. GROSS DESCRIPTION A - Received in fixative is one container labeled with the patient's name and designated prepyloric nodule biopsy. The specimen consists of two irregular fragments of light ospina soft tissue that in aggregate measure 0.6 x 0.5 x 0.1 cm. The specimen is totally submitted in one cassette. B - Received in fixative is one container labeled with the patient's name and designated antrum biopsy. The specimen consists of two irregular fragments of light ospina soft tissue that in aggregate measure 0.6 x 0.3 x 0.1 cm. The specimen is totally submitted in one cassette. C - Received in fixative is one container labeled with the patient's name and designated GE junction biopsy. The specimen consists of two irregular fragments of light ospina soft tissue that in aggregate measure 0.6 x 0.4 x 0.1 cm. The specimen is totally submitted in one cassette. / SJ:rg 02/15/2022 TC:3 CPT: 56008 x3, 27054
--- NOTE | 2022-02-15 07:30 | IMM_PTH ---
PATIENT: SHANTE CROW LOC: EN U#:[id number] AGE/SX: 61/F ROOM: RE02/15/[address]: Dr. João Chavira MD : 1960 BED: DIS: 02/15/2022 SPEC #: [id number] RECD: 02/15/22 14:05 STATUS: LATRICIA REMary #: [id number] BENJAMIN: 02/15/22 07:[address]: João hCavira DEPT: IMMUNOHISTOCHEMISTRY RECD BY: Neyda Ramos ENTERED: 02/15/22 14:06 SP TYPE: IMMUNO OTHR DR: Dr. Cyndi Escobar DO Tissues: B - Stomach, NOS Procedures: H Pylori (initial) PHYSICIAN & INSTITUTION [place] [address] SPECIMEN INFORMATION: Tissue Source: B ? Antrum biopsy Clinical Info: History of colon cancer, GERD Specimen Number: [id number] CPT code: 86033 METHODOLOGY: Deparaffinized sections of prefer/formalin-fixed tissue or PAP/DQ stained slides are incubated with monoclonal/polyclonal antibodies/oligonucleotide probes. Localization is made via biotin free immunoperoxidase method. Appropriate controls are performed and reacted as expected. Results on target cell population are indicated in the following table: RESULTS: ANTIBODY / CLONE RESULT Block B H Pylori (polyclonal) negative These tests were developed and their performance characteristics determined by [facility]. They may not have been cleared or approved by the U.S. Food and Drug Administration. The FDA has determined that such clearance or approval is not necessary. The above immunohistochemical/dualISH markers are ordered and reviewed by the Pathologist. INTERPRETATION: B. Antrum, biopsy: Negative for Helicobacter pylori organisms. SJ:dinesh 02/16/2022
--- NOTE | 2022-02-15 08:46 | OP.EGD_ITS ---
Patient Name: Cherri Vaz Procedure Date: 02/15/2022 8:30 AM Date of : 1960 Age: 61 Procedure: Upper GI endoscopy Indications: Suspected esophageal reflux Providers: João Chavira MD Referring MD: João Chavira MD Medicines: See the Anesthesia note for documentation of the administered medications Patient Profile: Refer to note in patient chart for documentation of history and physical. Complications: No immediate complications. Estimated blood loss: Minimal. Procedure: Pre-Anesthesia Assessment: - The heart rate, respiratory rate, oxygen saturations, blood pressure, adequacy of pulmonary ventilation, and response to care were monitored throughout the procedure. After obtaining informed consent, the endoscope was passed under direct vision. Throughout the procedure, the patient's blood pressure, pulse, and oxygen saturations were monitored continuously. The Colonoscope was introduced through the mouth, and advanced to the second part of duodenum. The upper GI endoscopy was accomplished without difficulty. The patient tolerated the procedure well. Scope In: 7:35:43 AM Scope Out: 7:51:58 AM Total Procedure Duration Time 0 hours 16 minutes 15 seconds Findings: The ampulla, duodenal bulb, first portion of the duodenum and second portion of the duodenum were normal. No biopsies or other specimens were collected for this exam. Two 5 mm submucosal papules (nodules) with no bleeding and no stigmata of recent bleeding were found in the prepyloric region of the stomach. Biopsies were taken with a cold forceps for histology. Estimated blood loss was minimal. Diffuse mild inflammation characterized by erythema was found in the gastric body and in the gastric antrum. Biopsies were taken with a cold forceps for histology. Estimated blood loss was minimal. The Z-line was irregular and was found 40 cm from the incisors. Biopsies were taken with a cold forceps for histology. Estimated blood loss was minimal. Impression: - Normal ampulla, duodenal bulb, first portion of the duodenum and second portion of the duodenum. No specimens collected. - Two submucosal papules (nodules) found in the stomach. Biopsied. - Gastritis. Biopsied. - Z-line irregular, 40 cm from the incisors. Biopsied. Recommendation: - Discharge patient to home (via wheelchair). - Resume previous diet today. - Use Prilosec (omeprazole) 20 mg PO daily today. - Await pathology results. - Telephone my office for pathology results in 1 week. - Continue present medications. Procedure Code(s): --- Professional --- 57705, Esophagogastroduodenoscopy, flexible, transoral; with biopsy, single or multiple Diagnosis Code(s): --- Professional --- K31.89, Other diseases of stomach and duodenum K29.70, Gastritis, unspecified, without bleeding K22.8, Other specified diseases of esophagus CPT copyright 2017 [employer]. All rights reserved. The codes documented in this report are preliminary and upon vending route driver review may be revised to meet current compliance requirements. João Chavira MD 02/15/2022 8:45:39 AM This report has been signed electronically. Number of Addenda: 0 Note Initiated On: 02/15/2022 8:30 AM
--- NOTE | 2022-02-15 08:47 | OP.CCLET_ITS ---
02/15/2022 Cyndi Escobar [address] [place] [address] Re : Upper GI endoscopy procedure for [facility] Dear Dr. Escobar This procedure was performed on January. My impressions and recommendations are as follows: Impressions : - Normal ampulla, duodenal bulb, first portion of the duodenum and second portion of the duodenum. No specimens collected. - Two submucosal papules (nodules) found in the stomach. Biopsied. - Gastritis. Biopsied. - Z-line irregular, 40 cm from the incisors. Biopsied. Recommendations : - Discharge patient to home (via wheelchair). - Resume previous diet today. - Use Prilosec (omeprazole) 20 mg PO daily today. - Await pathology results. - Telephone my office for pathology results in 1 week. - Continue present medications. My findings are described in the full procedure note, which is enclosed. If I can be of further assistance, please feel free to contact me at Doctor phone number(s): , Work: . Sincerely, João Chavira MD 02/15/2022 8:45:39 AM This report has been signed electronically.
--- NOTE | 2022-02-15 08:55 | OP.CCLET_ITS ---
02/15/2022 Cyndi Escobar [address] [place] [address] Re : Colonoscopy procedure for [facility] Dear Dr. Escobar This procedure was performed on January. My impressions and recommendations are as follows: Impressions : - Perianal skin tags found on perianal exam. - Patent functional end-to-end ileo-colonic anastomosis, characterized by healthy appearing mucosa. No specimens collected. - The entire examined colon is normal on direct and retroflexion views. Recommendations : - Discharge patient to home (via wheelchair). - Resume previous diet today. - Continue present medications. - Repeat colonoscopy in 5 years for surveillance. My findings are described in the full procedure note, which is enclosed. If I can be of further assistance, please feel free to contact me at Doctor phone number(s): , Work: . Sincerely, João Chavira MD 02/15/2022 8:54:44 AM This report has been signed electronically.
--- NOTE | 2022-02-15 08:55 | OP.COLON_ITS ---
Patient Name: Cherri Vaz Procedure Date: 02/15/2022 7:22 AM Date of : 1960 Age: 61 Procedure: Colonoscopy Indications: High risk colon cancer surveillance: Personal history of colon cancer Providers: João Chavira MD Referring MD: João Chavira MD Medicines: See the Anesthesia note for documentation of the administered medications Patient Profile: Last Colonoscopy: 6 years ago. Refer to note in patient chart for documentation of history and physical. Complications: No immediate complications. Estimated blood loss: None. Procedure: Pre-Anesthesia Assessment: - The heart rate, respiratory rate, oxygen saturations, blood pressure, adequacy of pulmonary ventilation, and response to care were monitored throughout the procedure. After I obtained informed consent, the scope was passed under direct vision. Throughout the procedure, the patient's blood pressure, pulse, and oxygen saturations were monitored continuously. The Colonoscope was introduced through the anus and advanced to the terminal ileum. The colonoscopy was performed without difficulty. The patient tolerated the procedure well. The quality of the bowel preparation was adequate to identify polyps. Scope In: 7:54:26 AM Scope Withdrawal Time 0 hours 14 minutes 56 seconds Scope Out: 8:20:44 AM Total Procedure Duration Time 0 hours 26 minutes 18 seconds Findings: Skin tags were found on perianal exam. There was evidence of a prior functional end-to-end ileo-colonic anastomosis in the proximal ascending colon. This was patent and was characterized by healthy appearing mucosa. The anastomosis was traversed. No biopsies or other specimens were collected for this exam. The entire examined colon appeared normal on direct and retroflexion views. Impression: - Perianal skin tags found on perianal exam. - Patent functional end-to-end ileo-colonic anastomosis, characterized by healthy appearing mucosa. No specimens collected. - The entire examined colon is normal on direct and retroflexion views. Recommendation: - Discharge patient to home (via wheelchair). - Resume previous diet today. - Continue present medications. - Repeat colonoscopy in 5 years for surveillance. Procedure Code(s): --- Professional --- G0105, Colorectal cancer screening; colonoscopy on individual at high risk Diagnosis Code(s): --- Professional --- Z85.038, Personal history of other malignant neoplasm of large intestine Z98.0, Intestinal bypass and anastomosis status K64.4, Residual hemorrhoidal skin tags CPT copyright 2017 [employer]. All rights reserved. The codes documented in this report are preliminary and upon customer support executive review may be revised to meet current compliance requirements. João Chavira MD 02/15/2022 8:54:44 AM This report has been signed electronically. Number of Addenda: 0 Note Initiated On: 02/15/2022 7:22 AM
== END 2022-02-15 10:11 | disposition home or self-care (01) ==
LOC: EN 06:26 → AC 06:28
PROVIDERS: PCP Internal Medicine; Referring Provider Surgery; Visit Provider Surgery
PROC: 0DJD8ZZ Inspection of Lower Intestinal Tract, Via Natural or Artificial Opening Endoscopic (ICD-10-PCS; CPT 45378; principal; 2022-02-15 07:25)
DX: Z12.11 Encounter for screening for malignant neoplasm of colon (principal); J44.9 Chronic obstructive pulmonary disease, unspecified; Z68.41 Body mass index [BMI] 40.0-44.9, adult; D69.3 Immune thrombocytopenic purpura; E11.9 Type 2 diabetes mellitus without complications; K64.4 Residual hemorrhoidal skin tags; K29.70 Gastritis, unspecified, without bleeding; K21.9 Gastro-esophageal reflux disease without esophagitis; K31.89 Other diseases of stomach and duodenum; E66.9 Obesity, unspecified; E55.9 Vitamin D deficiency, unspecified; E78.5 Hyperlipidemia, unspecified; Z98.0 Intestinal bypass and anastomosis status; Z79.84 Long term (current) use of oral hypoglycemic drugs; Z79.899 Other long term (current) drug therapy; Z85.038 Personal history of other malignant neoplasm of large intestine; Z92.21 Personal history of antineoplastic chemotherapy; Z87.891 Personal history of nicotine dependence
CPT/HCPCS: 43239; G0105; 82962; 88305; 88313; 88342; J7120; J2405

== ENCOUNTER → 2022-10-15 | Outpatient (CLI) | payer OTHER, SELFPAY | END | disposition home or self-care (01) | LOC: LABSPEC 09:09 | PROVIDERS: PCP Internal Medicine; Referring Provider Internal Medicine Critical Care Medicine; Visit Provider Internal Medicine Critical Care Medicine | DX: J44.9 Chronic obstructive pulmonary disease, unspecified (principal) | CPT/HCPCS: 87070; 87205 ==

== ENCOUNTER → 2022-11-07 | Outpatient (CLI) | payer OTHER, SELFPAY ==
[2022-11-07 07:15] LABS: Mucous, Urine 0 SEEN /hpf (<or=2+)
[2022-11-07 07:46] LABS: Absolute Lymphocyte Count 2.91 X10^3/uL (0.83-4.51); Absolute Neutrophil Count 5.7 X10^3/uL (2.0-7.7); Basophil# 0.08 X10^3/uL; Basophil% 0.8 % (0-1); Eosinophil# 0.25 X10^3/uL; Eosinophils% 2.6 % (0-5); Hematocrit 46.2 % (37-47); Hemoglobin 14.1 g/dL (12.0-15.0); Lymphocyte # 2.91 X10^3/ul (0.83-4.51); Lymphocyte % 29.9 % (19-41); Mean Corp Hgb Conc 30.5 g/dL (32-36); Mean Corpuscular Hgb 27.5 pg (27.0-32.0); Mean Corpuscular Volume 90.1 fL (81-99); Mean Platelet Vol. 11.7 fl (6.2-12.0); Monocyte# 0.74 X10^3/uL; Monocyte% 7.6 % (0-10); NRBC Flagged by Analyzer 0 % (0-5); Neutrophil # 5.73 X10^3/uL (2.7-7.7); Neutrophil % 58.8 % (47-70); Platelet Count 132 K/mm3 (150-450); RBC Distribution Width CV 13.6 % (11.6-14.6); Red Blood Count 5.13 M/mm3 (4.2-5.4); White Blood Count 9.7 K/mm3 (4.4-11.0)
[2022-11-07 07:55] LABS: Color, Urine Yellow (Yellow); Glucose, Dipstick Normal (Normal); Ketone-Dipstick Negative (Negative); Leukocyte Esterase-Dipstick 500 /ul (Negative); Nitrite-Dipstick Negative (Negative); Occult Blood-Urine 10 /ul (Negative); Protein-Dipstick 15 mg/dl (Negative); Specific Gravity, Urine 1.025 (1.002-1.030); Urine Clarity Clear (Clear); Urine Urobilinogen Normal (Normal)
[2022-11-07 07:57] LABS: Urine Bilirubin Dipstick 1 mg/dL (Negative)
[2022-11-07 08:01] LABS: Bacteria 2+ /hpf (None Seen); Red Blood Cells-Urine 0-5 SEEN /hpf (0-5); Squamous Epithelial Cells - UA 0-5 SEEN /hpf (5-10); White Blood Cells 50-100 SEEN /hpf (0-5)
[2022-11-07 08:18] LABS: Microalbumin:Creatinine Ratio 29.9 mg/g CRE (<30 mg/g CRE)
[2022-11-07 08:23] LABS: ALB/GLOB Ratio 1.2 RATIO (0.9-2.4); AST(SGOT) 18 U/L (15-37); Alanine Aminotransfer ALT/SGPT 27 U/L (13-56); Albumin, Serum 3.8 g/dL (3.2-5.0); Alkaline Phosphatase 141 U/L (45-117); Anion Gap 5 (5-15); BUN 12 mg/dL (7-18); BUN/Creat Ratio 17.2 RATIO (10-20); Calcium,Total 8.7 mg/dL (8.5-10.1); Chloride 107 mmol/L (98-107); Cholesterol 130 mg/dL (200); EST Glomerular Filtration Rate 90 mL/min (>60); Est Glom Filt Rate - Afr Amer 109 mL/min (>60); Globulin 3.3 g/dL (2.2-4.2); Glucose 109 mg/dL (74-106); High Density Lipoprotein 51 mg/dL; Potassium 4.1 mmol/L (3.5-5.1); Protein, Total 7.1 g/dL (6.4-8.2); Sodium Level 141 mmol/L (136-145); Thyroid Stim Hormone (TSH) 2.16 uIU/mL (0.358-3.74); Triglycerides 189 mg/dL; Very Low Density Lipoprotein 38 mg/dL (5-40)
[2022-11-07 09:35] LABS: Vitamin D,25 Hydroxy 47.9 ng/mL
== END | disposition home or self-care (01) ==
PROVIDERS: PCP Internal Medicine; Referring Provider Internal Medicine; Visit Provider Internal Medicine
DX: D69.3 Immune thrombocytopenic purpura (principal); E11.9 Type 2 diabetes mellitus without complications; E55.9 Vitamin D deficiency, unspecified; E78.5 Hyperlipidemia, unspecified
CPT/HCPCS: 36415; 80053; 80061; 81001; 82043; 82306; 82570; 84443; 85025

== ENCOUNTER → 2023-04-01 | Outpatient (CLI) | payer OTHER, SELFPAY | END | disposition home or self-care (01) | LOC: PAVLAB 12:57 | PROVIDERS: PCP Internal Medicine; Referring Provider Nurse Practitioner Acute Care; Visit Provider Nurse Practitioner Acute Care | DX: J44.9 Chronic obstructive pulmonary disease, unspecified (principal) | CPT/HCPCS: 87070; 87077; 87186; 87205 ==

== ENCOUNTER → 2023-06-15 | Outpatient (CLI) | payer OTHER, SELFPAY ==
[2023-06-15 08:56] LABS: Mucous, Urine 0 SEEN /hpf (<or=2+); Red Blood Cells-Urine 0 SEEN /hpf (0-5)
[2023-06-15 09:20] LABS: Absolute Lymphocyte Count 2.63 X10^3/uL (0.83-4.51); Absolute Neutrophil Count 4.6 X10^3/uL (2.0-7.7); Basophil# 0.07 X10^3/uL; Basophil% 0.9 % (0-1); Eosinophil# 0.19 X10^3/uL; Eosinophils% 2.4 % (0-5); Hemoglobin 13.4 g/dL (12.0-15.0); Lymphocyte # 2.63 X10^3/ul (0.83-4.51); Lymphocyte % 32.7 % (19-41); Mean Corp Hgb Conc 30.5 g/dL (32-36); Mean Corpuscular Volume 88.7 fL (81-99); Monocyte# 0.56 X10^3/uL; NRBC Flagged by Analyzer 0 % (0-5); Neutrophil # 4.56 X10^3/uL (2.7-7.7); Neutrophil % 56.6 % (47-70); Platelet Count 128 K/mm3 (150-450); RBC Distribution Width CV 13.8 % (11.6-14.6); RBC Distribution Width SD 44.4 fl (35.1-43.9); Red Blood Count 4.96 M/mm3 (4.2-5.4)
[2023-06-15 10:00] LABS: ALB/GLOB Ratio 1.2 RATIO (0.9-2.4); AST(SGOT) 13 U/L (15-37); Alanine Aminotransfer ALT/SGPT 17 U/L (13-56); Albumin, Serum 3.8 g/dL (3.2-5.0); Alkaline Phosphatase 126 U/L (45-117); Anion Gap 6 (5-15); BUN 12 mg/dL (7-18); BUN/Creat Ratio 16.3 RATIO (10-20); Chloride 105 mmol/L (98-107); Cholesterol 123 mg/dL (200); Creatinine, Serum 0.73 mg/dL (0.55-1.02); EST Glomerular Filtration Rate 85 mL/min (>60); Est Glom Filt Rate - Afr Amer 103 mL/min (>60); Globulin 3.2 g/dL (2.2-4.2); Glucose 114 mg/dL (74-106); High Density Lipoprotein 54 mg/dL; Sodium Level 139 mmol/L (136-145); Thyroid Stim Hormone (TSH) 1.88 uIU/mL (0.358-3.74); Triglycerides 110 mg/dL; Very Low Density Lipoprotein 22 mg/dL (5-40)
[2023-06-15 10:06] LABS: Microalbumin,Random Urine 49.7 mg/L (NO RANGE EST.); Microalbumin:Creatinine Ratio 235.5 mg/g CRE (<30 mg/g CRE)
[2023-06-15 10:36] LABS: Color, Urine Yellow (Yellow); Glucose, Dipstick Normal (Normal); Ketone-Dipstick Negative (Negative); Leukocyte Esterase-Dipstick 100 /ul (Negative); Nitrite-Dipstick Negative (Negative); Occult Blood-Urine 10 /ul (Negative); Protein-Dipstick Negative (Negative); Specific Gravity, Urine 1.005 (1.002-1.030); Urine Bilirubin Dipstick Negative (Negative); Urine Clarity Clear (Clear); Urine Urobilinogen Normal (Normal)
[2023-06-15 11:32] LABS: Bacteria 1+ /hpf (None Seen); Squamous Epithelial Cells - UA 0-5 SEEN /hpf (5-10); White Blood Cells 5-10 SEEN /hpf (0-5)
[2023-06-17 08:19] LABS: Vitamin D,25 Hydroxy 62.9 ng/mL
== END | disposition home or self-care (01) ==
LOC: LAB 08:35
PROVIDERS: PCP Internal Medicine; Referring Provider Internal Medicine; Visit Provider Internal Medicine
DX: E78.5 Hyperlipidemia, unspecified (principal); E11.9 Type 2 diabetes mellitus without complications; E55.9 Vitamin D deficiency, unspecified
CPT/HCPCS: 36415; 80053; 80061; 81001; 82043; 82306; 82570; 84443; 85025

== ENCOUNTER → 2023-07-15 | Outpatient (CLI) | payer OTHER, SELFPAY ==
[2023-07-15 15:23] LABS: Anion Gap 4 (5-15); BUN 10 mg/dL (7-18); Calcium,Total 9.2 mg/dL (8.5-10.1); Chloride 105 mmol/L (98-107); Creatinine, Serum 0.67 mg/dL (0.55-1.02); EST Glomerular Filtration Rate 95 mL/min (>60); Est Glom Filt Rate - Afr Amer 115 mL/min (>60); Glucose 106 mg/dL (74-106); Sodium Level 139 mmol/L (136-145)
== END | disposition home or self-care (01) ==
LOC: PAVLAB 14:28
PROVIDERS: PCP Internal Medicine; Referring Provider Internal Medicine; Visit Provider Internal Medicine
DX: Z51.81 Encounter for therapeutic drug level monitoring (principal)
CPT/HCPCS: 36415; 80048

== ENCOUNTER → 2023-08-06 | Outpatient (CLI) | payer OTHER, SELFPAY ==
--- NOTE | 2023-08-06 10:26 | ECHOCS_ITS ---
Reason For Study: NATHANIEL Procedure This was a 2D Doppler, Color Flow transthoracic echocardiogram. The study was technically difficult. Due to COPD & body habitus. Contrast injection was performed. Exam performed in department. Left Ventricle Normal LV size. The estimated ejection fraction is 50 %. Stage 1 diastolic dysfunction. There is mild global hypokinesis of the left ventricle. Right Ventricle Normal RV size. Normal systolic function. Great Vessels Normal aortic root. The pulmonary artery is normal size. Pericardium/Pleural No pericardial effusion. Medication 22 gauge I.V. with prn adaptor inserted into right arm. Diluted definity 3.0ml given slow IV push to enhance endocardial definition. MMode/2D Measurements & Calculations LVIDd: 6.7 cm IVSd: 1.2 cm LVOT diam: 2.2 cm LVIDs: 5.3 cm LVPWd: 1.1 cm RVDd: 3.1 cm FS: 21.5 % LVOT area: 3.6 cm2 Ao root diam: 3.6 cm LAV(MOD-bp): 46.2 ml LA dimension: 4.3 cm LVAd ap4: 39.6 cm2 LAV(MOD-bp) Indexed: 20.1 ml/m2 LVLd ap4: 9.0 cm LAV(MOD-sp2): 46.4 ml EDV(MOD-sp4): 152.0 ml LAV(MOD-sp4): 36.1 ml EDV(sp4-el): 148.3 ml LVAs ap4: 26.5 cm2 LVLs ap4: 8.0 cm ESV(MOD-sp4): 75.2 ml ESV(sp4-el): 75.0 ml EF(MOD-sp4): 50.5 % EF(sp4-el): 49.4 % SV(MOD-sp4): 76.8 ml SV(sp4-el): 73.3 ml LA A4 area: 13.4 cm2 RA A4 area: 9.7 cm2 TAPSE: 2.3 cm Time Measurements MV dec time: 0.16 sec Doppler Measurements & Calculations MV E max xiang: 88.1 cm/sec Lat Peak E' Xiang: 5.9 cm/sec Med Peak E' Xiang: 7.0 cm/sec MV A max xiang: 129.7 cm/sec E/E' lat: 15.1 E/E' med: 12.6 MV E/A: 0.68 MV V2 max: 141.7 cm/sec MV P1/2t max xiang: 99.6 cm/sec Ao V2 max: 158.9 cm/sec MV max P.0 mmHg MV P1/2t: 60.7 msec Ao max P.1 mmHg MV V2 mean: 81.0 cm/sec MV dec slope: 481.0 cm/sec2 Ao V2 mean: 113.0 cm/sec MV mean P.9 mmHg Ao mean P.8 mmHg MV V2 VTI: 22.2 cm MVA(P1/2t): 3.6 cm2 Ao V2 VTI: 34.5 cm MVA(VTI): 4.0 cm2 AV (velocity ratio): 0.71 GENA(I,D): 2.6 cm2 GENA(V,D): 2.4 cm2 LV V1 max: 105.1 cm/sec SV(LVOT): 89.7 ml PA V2 max: 98.4 cm/sec LV V1 max P.4 mmHg PA max PG (full): 1.1 mmHg LV V1 mean P.6 mmHg LV V1 mean: 76.9 cm/sec LV V1 VTI: 24.7 cm ECHO/Echo Complete W/ Contrast Interpretation Summary Stage 1 diastolic dysfunction. Normal LV size. The estimated ejection fraction is 50 %. Contrast injection was performed. Ordering Physician: Cyndi Escobar Referring Physician: Cyndi Escobar Performed By: Polina Bailey RVT, RDCS and Student
== END | disposition home or self-care (01) ==
LOC: CVS 10:23
PROVIDERS: PCP Internal Medicine; Referring Provider Internal Medicine; Visit Provider Internal Medicine
DX: G47.33 Obstructive sleep apnea (adult) (pediatric) (principal)
CPT/HCPCS: 93306; Q9957; A4216; C8929

== ENCOUNTER 2024-02-12 18:31 | Inpatient (IN) | payer OTHER, SELFPAY ==
[2024-02-12] VITALS (12 sets, daily range): BP systolic 111–164; BP diastolic 59–99; PULSE 106–118; RESP 20–46; TEMP 36.4–37.3; O2SAT 80–95; BMI 38.5; BMI 36.8
--- NOTE | 2024-02-12 18:35 | EKG12_ITS ---
Test Reason : DYSRHYTHMIA Blood Pressure : */* mmHG Vent. Rate : 115 BPM Atrial Rate : 115 BPM P-R Int : 142 ms QRS Dur : 76 ms QT Int : 334 ms P-R-T Axes : 54 60 62 degrees QTcB Int : 462 ms Sinus tachycardia Otherwise normal ECG Confirmed by HANNAH LUNDY, [place] ([id number]), field map editor KENYATTA OLMSTEAD ([id number]) on 02/13/2024 11:00:04 AM Referred By: Confirmed By: [place]NA YOUNG MD
--- NOTE | 2024-02-12 18:45 | RAD_ITS ---
STUDY: X-RAY CHEST REASON FOR EXAM: Female, 63 years old. Chest pain TECHNIQUE: Single AP portable view of the chest. COMPARISON: CT February 19, 2013 FINDINGS: There are monitoring devices. There are mild right lower lung opacities. There is no demonstrated pleural abnormality. Normal size heart. Normal mediastinum and antonio. Normal visualized pulmonary arteries. Normal visualized aortic arch and descending thoracic aorta. Normal visualized thoracic spine. Normal visualized ribs, clavicles, and shoulders. There is no demonstrated abnormality of the visualized soft tissue structures of the upper abdomen. RAD/Chest 1 View (Portable) IMPRESSION: Mild right lower lung infiltrate or edema. Electronically Signed: Paxton Hargrove MD at 19:22 [facility] ,
[2024-02-12 18:54] LABS: Absolute Lymphocyte Count 1.92 X10^3/uL (0.83-4.51); Basophil# 0.05 X10^3/uL; Basophil% 0.3 % (0-1); Eosinophils% 0.7 % (0-5); Hematocrit 43.1 % (37-47); Hemoglobin 13.4 g/dL (12.0-15.0); Lymphocyte # 1.92 X10^3/ul (0.83-4.51); Lymphocyte % 12.6 % (19-41); Mean Corp Hgb Conc 31.1 g/dL (32-36); Mean Corpuscular Hgb 26.5 pg (27.0-32.0); Mean Corpuscular Volume 85.3 fL (81-99); Mean Platelet Vol. 10.9 fl (6.2-12.0); Monocyte% 7.2 % (0-10); NRBC Flagged by Analyzer 0 % (0-5); Neutrophil # 12.03 X10^3/uL (2.7-7.7); Neutrophil % 78.8 % (47-70); Platelet Count 175 K/mm3 (150-450); RBC Distribution Width CV 14.6 % (11.6-14.6); RBC Distribution Width SD 45.5 fl (35.1-43.9); Red Blood Count 5.05 M/mm3 (4.2-5.4); White Blood Count 15.3 K/mm3 (4.4-11.0)
[2024-02-12 19:20] LABS: Anion Gap 7 (5-15); BUN 6 mg/dL (7-18); BUN/Creat Ratio 10.5 RATIO (10-20); Calcium,Total 9.6 mg/dL (8.5-10.1); Chloride 105 mmol/L (98-107); Creatinine, Serum 0.57 mg/dL (0.55-1.02); EST Glomerular Filtration Rate 114 mL/min (>60); Est Glom Filt Rate - Afr Amer 137 mL/min (>60); Estimated Creatinine Clearance 132.81 ml/min; Glucose 124 mg/dL (74-106); Potassium 3.3 mmol/L (3.5-5.1); Sodium Level 139 mmol/L (136-145); Troponin-I HS (w/2H Reflex) 15 pg/mL (3.0-54.0)
[2024-02-12] MEDS: Albuterol 2.5 MG/3 ML VIAL.NEB. INHALATION (19:28)
[2024-02-12] MEDS: Ipratropium 0.5 MG/2.5 ML SOLUTION INHALATION (19:31)
[2024-02-12] MEDS: Ceftriaxone 2 GM in 0.9% Normal Saline (50mL MB+) 50 ML IV (19:38)
[2024-02-12 19:46] LABS: International Normalized Ratio 1.1; Partial Thromboplast Time 28.4 Seconds (24.1-36.2); Prothrombin Time (Protime)PT. 13.7 SECONDS (11.7-14.9)
[2024-02-12 19:50] LABS: Allen Test Positive; Base Excess 4 mmol/L (-2 to +2); Bicarbonate 28.4 mmol/L (22-26); Blood Gas Specimen Type ART; Mode Not entered; O2 Delivery Device Cannula; PO2 77 mmHG (75-100); SITE L Radial; SO2 95 % (95-99); Total Carbon Dioxide 30 mmol/L; pCO2 46.4 mmHg (35-45); pH 7.39 (7.35-7.45)
--- NOTE | 2024-02-12 19:51 | CPS ---
[1931] x1 Atrovent given to pt. in ER as well
[2024-02-12] MEDS: Azithromycin 500 MG in Dextrose 5%-Water (250mL Bag) 250 ML 250 MG IV (20:25)
[2024-02-12 20:29] LABS: Lactic Acid 1.3 mmol/L (0.4-1.9)
[2024-02-12 20:51] LABS: Reflex Troponin-HS? (from REC) Y
--- NOTE | 2024-02-12 21:09 | EDS_ITS ---
HPI History of Present Illness Chief Complaint: Shortness of Breath Detail of Chief Complaint: Shortness of breath with respiratory symptoms Onset/Context/Timing Onset: Days Context: gradual Timing: Continuous and Waxes and wanes Quality: Positive for Dyspnea on exertion and Wheezing; Negative for Orthopnea or PND Current Severity: Moderate Maximum Severity: Severe Worsened by: Exertion and Coughing Relieved by: Nothing Associated Symptoms cough, fever, subjective, chills and green sputum; Negative for rhinorrhea, post nasal drip, ear pain, sore throat or sweats Chest Pain: Positive for Intermittent Narrative Narrative: Patient is a 63-year-old woman with multimedical problems which include COPD, obstructive sleep apnea, BMI between 30 and 39.9, alpha 1 antitrypsin deficiency, tobacco use, history of ITP, GERD without esophagitis, hyperlipidemia, type 2 diabetes, PE Risk Factors: Negative for Cancer, OCP + Smoking + > 35, Prior DVT or PE, Recent immobilization, Recent surgery or Recent travel Prior similar symptoms: No Recent Illness/Hospitalization: No PFSH PFSH Medical History Wears dentures Wears glasses MRSA infection Cancer History of steroid therapy Diabetes Blood disorder High cholesterol Heartburn Former smoker CPAP (continuous positive airway pressure) dependence Sleep apnea Emphysema, unspecified COPD (chronic obstructive pulmonary disease) Axillary lymphadenopathy Acute bronchitis Chronic idiopathic thrombocytopenia Type 2 diabetes mellitus Vitamin D deficiency Obesity HLD (hyperlipidemia) Anxiety Sleep disorder Premature beats GERD without esophagitis Apnea Hematuria Lung nodule History of MRSA infection History of colon cancer GERD (gastroesophageal reflux disease) COLD (chronic obstructive lung disease) Home Medications ?Medication ?Instructions ?Recorded ?Last Taken ?Type cholecalciferol (vitamin D3) 50 4,000 unit PO DAILY 11/15/17 Unknown History mcg (2,000 unit) capsule lorazepam 0.5 mg tablet (Ativan) 0.5 mg PO DAILY PRN Anxiety 11/15/17 02/15/22 History metformin 500 mg tablet 1,000 mg PO BID 11/15/17 Unknown History PEP device #1 ea 08/11/19 Unknown Rx rosuvastatin 10 mg tablet 10 mg PO DAILY 01/25/22 Unknown History omeprazole 20 mg tablet,delayed 40 mg PO DAILY 04/30/23 Unknown History release albuterol sulfate 2.5 mg/3 mL 2.5 mg (3 mL) inhalation Q4H PRN 11/04/23 Unknown Rx (0.083 %) solution for nebulization shortness of breath or wheezing #360 vials albuterol sulfate 90 mcg/actuation 2 inh inhalation Q6H PRN shortness 11/04/23 Unknown Rx aerosol inhaler (Proventil HFA) of breath or wheezing #18 grams cetirizine 10 mg tablet 10 mg PO DAILY #90 tabs 11/04/23 Unknown Rx fluticasone fur. 100 mcg-umeclid 1 inh inhalation DAILY #3 ea 11/04/23 Unknown Rx 62.5 mcg-vilant 25 mcg inhalat.powder (Trelegy Ellipta) furosemide 20 mg tablet 20 mg PO Q OTHER DAY 11/04/23 Unknown History guaifenesin 1,200 mg tablet, 1,200 mg PO BID #60 tabs 11/04/23 Unknown Rx extended release 12 hr (Mucinex) montelukast 10 mg tablet 10 mg PO QPM #90 tabs 11/04/23 Unknown Rx semaglutide 0.25 mg or 0.5 mg (2 0.5 mg subcut QWEEK 11/04/23 Unknown History mg/3 mL) subcutaneous pen injector (Ozempic) Allergy/AdvReac Type Severity Reaction Status Date / Time No Known Allergies Allergy Verified 02/12/24 18:32 Family History Mother HLD (hyperlipidemia) Anxiety Depression Alzheimers disease Surgical History History of surgery on lower extremity History of elbow surgery H/O right hemicolectomy H/O tubal ligation History of tonsillectomy H/O dilation and curettage Hx of cholecystectomy Social History Smoking Status: Current every day smoker tobacco type: cigarettes second hand exposure: Yes alcohol intake: current alcohol intake frequency: holidays/special occasions only substance use type: does not use ROS ROS ED Constitutional Constitutional ED: Denies chills or fever(s) Eyes Eyes: Denies blurry vision or change in vision Cardiovascular Cardiovascular: Reports chest pain; Denies orthopnea, palpitations or paroxysmal nocturnal dyspnea Respiratory/Chest Respiratory/Chest: Reports cough, dyspnea, dyspnea on exertion and sputum; Denies orthopnea or paroxysmal nocturnal dyspnea Gastrointestinal Gastrointestinal: Denies abdominal pain, nausea or vomiting Genitourinary Genitourinary ED: Denies dysuria, hematuria or urinary frequency Musculoskeletal Musculoskeletal: Denies arthralgias or myalgias Integumentary Denies rash Neurologic Neurologic: Reports weakness; Denies headache(s) Hematologic/Lymphatic Hematologic/Lymphatic: Denies easy bleeding or easy bruising EXAM Physical Exam Const Vital Signs: 02/12/24 18:32 02/12/24 18:35 02/12/24 18:40 Temperature 98.7 F Temperature Source Oral Pulse Rate 116 H 116 H Respiratory Rate 46 H 36 H Respiratory Effort Respiratory Depth Respiratory Pattern Blood Pressure 118/96 H Blood Pressure Mean 103 Pulse Ox 80 95 Oxygen Delivery Method Room Air Nasal Cannula Nasal Cannula Oxygen Flow Rate (L/min) 2 4 Fraction of Inspired Oxygen (FIO2) 02/12/24 18:41 02/12/24 19:28 02/12/24 19:35 Temperature 99 F Temperature Source Oral Pulse Rate 113 H 111 H Respiratory Rate 26 H 29 H Respiratory Effort Short of Breath Labored Respiratory Depth Shallow Respiratory Pattern Tachypnea Tachypnea Blood Pressure 127/99 H Blood Pressure Mean 108 Pulse Ox 93 Oxygen Delivery Method Nasal Cannula Nasal Cannula Oxygen Flow Rate (L/min) 4 3 Fraction of Inspired Oxygen (FIO2) 02/12/24 20:00 Temperature 99.1 F Temperature Source Oral Pulse Rate 106 H Respiratory Rate 23 H Respiratory Effort Respiratory Depth Respiratory Pattern Blood Pressure 138/59 H Blood Pressure Mean 85 Pulse Ox 94 Oxygen Delivery Method Nasal Cannula Oxygen Flow Rate (L/min) Fraction of Inspired Oxygen (FIO2) 3 Vital signs noted. Patient was hypoxic with a pulse ox of 80% upon arrival. She was tachypneic. Positive well nourished and well developed Constitutional Narrative: BMI 38.6. General Appearance ED: well developed; Negative for NAD or pallor HEENT Reports moist mucous membranes HEENT Narrative: Patient has central cyanosis. Ears normal. Nares patent. Posterior pharynx is normal. Eyes PERRL and EOMs intact bilaterally General Eye ED: Negative for pale conjunctiva or scleral icterus Neck no lymphadenopathy, supple, no meningeal signs and no JVD Resp No normal respiratory effort and No clear to auscultation bilaterally Resp Narrative: Patient has expiratory wheezing throughout with increased x-ray phase and decreased air movement. There is rales and egophony right lower lobe question r ales left lower lobe. Auscultation: rales right mid and lower and left base, wheezes expiratory wheezes, scattered wheezes and throughout and diminished lung sounds Cardio regular rhythm, S1 normal heart sound, S2 normal heart sound and no murmurs Rate: tachycardic GI non-tender, non-distended and no masses Auscultation: normoactive bowel sounds Palpation: soft Back/Spine no CVA tenderness Extremity normal to inspection General Extremety ED: Negative for edema or tenderness General Extremity: Negative for edema Neuro oriented x3 and CN's II-XII intact bilaterally Renaldo Coma Scale: document GCS findings Spontaneous Obeys Commands Oriented 15 Sensorium / Orientation: alert Speech: speech normal Psych mental status grossly normal Skin no wounds and skin turgor normal General Skin Exam: Negative for jaundice or pallor Lesions: no lesions Rashes: no rashes MDM MDM MDM Narrative Medical decision making narrative: Patient presented with chest pain and shortness of breath. Nurse protocol entered for chest pain. When patient was seen by me it was my opinion she has infectious process and workup was undertaken for community-acquired pneumonia and additional labs were added and treatment for commune acquired pneumonia with Rocephin and azithromycin since she has no allergies to antibiotics. Differential diagnosis is pneumothorax, pleurisy, bronchitis, acute bronchospasm due to infectious etiology, pneumonia. Doubt cardiac etiology. She may have an atypical presentation because she does have history of diabetes and is a woman in her sixth decade. History & Record Review Additional record(s) reviewed:: Prior outpatient record (Patient seen by pulmonary April 2023 for asthma. She also had a pulmonary visit November 03 and seen by nurse practitioner Annabel Fischer. Patient had outpatient screening for neoplasm of the colon by Dr. Chavira. His H&P dated February 15 was reviewed.) Lab Data Attestation: I reviewed the patient's lab results. Lab results narrative: White count is elevated with slight shift. H&H is normal. Coags are normal. Basic metabolic panel is unremarkable. Glucose is elevated 124 with a normal CO2 anion gap. Lactate is normal. Troponin was ordered per nurse protocol and is normal. Patient's history and physical is not consistent with cardiac chest pain is consistent with infectious etiology. Rapid antigen for COVID, RSV and influenza were negative. Labs: Laboratory Results - last 24 hr 02/12/24 02/12/24 18:43 19:25 WBC 15.3 H RBC 5.05 Hgb 13.4 Hct 43.1 MCV 85.3 MCH 26.5 L MCHC 31.1 L RDW Std Deviation 45.5 H RDW Coeff of Lizz 14.6 Plt Count 175 MPV 10.9 Immature Gran % (Auto) 0.400 Neut % (Auto) 78.8 H Lymph % (Auto) 12.6 L Slope % (Auto) 7.2 Eos % (Auto) 0.7 Baso % (Auto) 0.3 Absolute Neuts (auto) 12.0 H Absolute Lymphs (auto) 1.92 Nucleated RBC % 0 PT 13.7 INR 1.1 APTT 28.4 Sodium 139 Potassium 3.3 L Chloride 105 Carbon Dioxide 27.0 Anion Gap 7 BUN 6 L Creatinine 0.57 Estim Creat Clear Calc 132.81 Est GFR (MDRD) Af Amer 137 Est GFR (MDRD) Non-Af 114 BUN/Creatinine Ratio 10.5 Glucose 124 H Lactic Acid 1.3 Calcium 9.6 Troponin I High Sens 15 ABG Data Attestation: I personally reviewed and interpreted this ABG as follows: Interpretation: ABG reveals a normal pH. Total CO2 is 30. Base excess is +4. pO2 is 77. pCO2 is 46.4 which is slightly elevated. The gas was obtained with patient on oxygen at 4 L by nasal cannula. This represents an increased AA gradient. ABG results: ABG 02/12/24 19:46 Specimen Type ART Sample Site L Radial pH 7.39 Bicarbonate Actual 28.4 H Total CO2 30 Base Excess 4 H O2 Saturation 95 O2 % 3.0 ABG pCO2 46.4 H ABG pO2 77 Jostin Test Positive O2 Delivery Device Cannula Vent Mode Not entered Radiography Chest X-Ray - ED: 1 View and Read by ED Physician (Patient has evidence of a right middle lobe pneumonia. Cardiac size is normal. There is no effusion or infiltrate noted. There is no evidence of cephalization. Osseous structures are unremarkable.) Diagnostic Testing: Clinical Impression(s) from Imaging Studies Chest X-Ray 02/12/24 18:45 IMPRESSION: Mild right lower lung infiltrate or edema. Electronically Signed: Paxton Hargrove MD at 19:22 EST , Discharge Plan Triage Chief Complaint: Shortness of Breath ED Provider: Kris Che Dx/Rx/DC Orders Clinical Impression: Acute hypoxic respiratory failure, Stage 4 very severe COPD by GOLD classification, NATHANIEL (obstructive sleep apnea), Obesity (BMI 30-39.9), Nlstm-[id number] deficiency, GERD without esophagitis, Right middle lobe pneumonia, SIRS (systemic inflammatory response syndrome), Bronchospasm, acute Prescriptions: No Action metformin 500 mg tablet 1,000 mg PO BID lorazepam [Ativan] 0.5 mg tablet 0.5 mg PO DAILY PRN (Reason: Anxiety) cholecalciferol (vitamin D3) 2,000 unit capsule 4,000 unit PO DAILY (DME) PEP device See Rx Instructions .ROUTE .MEDSUPPLY Qty: 1 0RF Rx Instructions: with training omeprazole 20 mg tablet,delayed release (DR/EC) 40 mg PO DAILY furosemide 20 mg tablet 20 mg PO Q OTHER DAY Ozempic 0.25 mg or 0.5 mg (2 mg/3 mL) pen injector 0.5 mg subcut QWEEK Trelegy Ellipta 100-62.5-25 mcg blister with device 1 inh INHALATION DAILY Qty: 3 3RF albuterol sulfate [Proventil HFA] 90 mcg/actuation HFA aerosol inhaler 2 inh INHALATION Q6H PRN (Reason: shortness of breath or wheezing) Qty: 18 6RF cetirizine 10 mg tablet 10 mg PO DAILY Qty: 90 3RF Mucinex 1,200 mg tablet extended release 12hr 1,200 mg PO BID Qty: 60 11RF montelukast 10 mg tablet 10 mg PO QPM Qty: 90 3RF rosuvastatin 10 mg tablet 10 mg PO DAILY albuterol sulfate 2.5 mg /3 mL (0.083 %) solution for nebulization 2.5 mg INHALATION Q4H PRN (Reason: shortness of breath or wheezing) Qty: 360 11RF Primary Care Provider: Cyndi Escobar Referrals: Cyndi Escobar DO [Primary Care Provider] - Print Language: Maori Disposition Disposition: Acute Care Hospital [facility]
[2024-02-12 21:28] LABS: Troponin-I HS 19 pg/mL (3.0-54.0)
--- NOTE | 2024-02-12 21:42 | PCM.HP.STD ---
HPI - General General Date of Admission: 02/12/24 HPI Narrative SHANTE CROW, is a 63 F who presents to the hospital with increasing shortness of breath and hypoxia. She said that she had something similar happen at the end of December and steroids and antibiotics did make it better but she feels that she never got over it. This episode of shortness of breath and hypoxia is been going on for the last several days. In the ER she was found to be hypoxic to 84% on room air and had to be placed on supplemental oxygen which she does not wear at baseline. She does have a history of stage IV COPD secondary to a combination of alpha-1 antitrypsin deficiency as well as smoking. Chest x-ray consistent with pneumonia in the right lower lung as well as a leukocytosis. COUNTS INCLUDE 234 BEDS AT THE [facility] Medical History Wears dentures Wears glasses MRSA infection Cancer History of steroid therapy Diabetes Blood disorder High cholesterol Heartburn Former smoker CPAP (continuous positive airway pressure) dependence Sleep apnea Emphysema, unspecified COPD (chronic obstructive pulmonary disease) Axillary lymphadenopathy Acute bronchitis Chronic idiopathic thrombocytopenia Type 2 diabetes mellitus Vitamin D deficiency Obesity HLD (hyperlipidemia) Anxiety Sleep disorder Premature beats GERD without esophagitis Apnea Hematuria Lung nodule History of MRSA infection History of colon cancer GERD (gastroesophageal reflux disease) COLD (chronic obstructive lung disease) Home Medications ?Medication ?Instructions ?Recorded ?Last Taken ?Type cholecalciferol (vitamin D3) 50 4,000 unit PO DAILY supplement 11/15/17 Unknown History mcg (2,000 unit) capsule lorazepam 0.5 mg tablet (Ativan) 0.5 mg PO DAILY PRN Anxiety 11/15/17 02/15/22 History metformin 500 mg tablet 1,000 mg PO BID dm 11/15/17 Unknown History PEP device #1 ea 08/11/19 Unknown Rx rosuvastatin 10 mg tablet 10 mg PO DAILY hld 01/25/22 Unknown History omeprazole 20 mg tablet,delayed 40 mg PO DAILY gerdd 04/30/23 Unknown History release albuterol sulfate 2.5 mg/3 mL 2.5 mg (3 mL) inhalation Q4H PRN 11/04/23 Unknown Rx (0.083 %) solution for nebulization shortness of breath or wheezing #360 vials albuterol sulfate 90 mcg/actuation 2 inh inhalation Q6H PRN shortness 11/04/23 Unknown Rx aerosol inhaler (Proventil HFA) of breath or wheezing #18 grams cetirizine 10 mg tablet 10 mg PO DAILY asthma #90 tabs 11/04/23 Unknown Rx fluticasone fur. 100 mcg-umeclid 1 inh inhalation DAILY copd #3 ea 11/04/23 Unknown Rx 62.5 mcg-vilant 25 mcg inhalat.powder (Trelegy Ellipta) furosemide 20 mg tablet 20 mg PO Q OTHER DAY water pill 11/04/23 Unknown History guaifenesin 1,200 mg tablet, 1,200 mg PO BID cough #60 tabs 11/04/23 Unknown Rx extended release 12 hr (Mucinex) montelukast 10 mg tablet 10 mg PO QPM asthma #90 tabs 11/04/23 Unknown Rx semaglutide 0.25 mg or 0.5 mg (2 0.5 mg subcut QWEEK dm 11/04/23 Unknown History mg/3 mL) subcutaneous pen injector (Ozempic) Allergy/AdvReac Type Severity Reaction Status Date / Time No Known Allergies Allergy Verified 02/12/24 18:32 Family History Mother HLD (hyperlipidemia) Anxiety Depression Alzheimers disease Surgical History History of surgery on lower extremity History of elbow surgery H/O right hemicolectomy H/O tubal ligation History of tonsillectomy H/O dilation and curettage Hx of cholecystectomy Social History Smoking Status: Current every day smoker tobacco type: cigarettes second hand exposure: Yes alcohol intake: current alcohol intake frequency: holidays/special occasions only substance use type: does not use ROS Constitutional Constitutional: Denies chills, fatigue, fever(s) or malaise Eyes Eyes: Denies blurry vision ENT HEENT: Denies headache(s) or nasal discharge Cardiovascular Cardiovascular: Denies chest pain, dyspnea on exertion or syncope Respiratory/Chest Respiratory/Chest: Reports cough, shortness of breath at rest and shortness of breath with exertion Gastrointestinal Gastrointestinal: Denies constipation, diarrhea, nausea or vomiting Genitourinary Genitourinary: Denies dysuria Neurologic Neurologic: Denies focal weakness, numbness or tremor(s) Psychiatric Psychiatric: Denies anxiety or depression Vital Signs Vital Signs Vital Signs: 02/12/24 18:32 02/12/24 18:35 02/12/24 18:40 Temperature 98.7 F Temperature Source Oral Pulse Rate 116 H 116 H Respiratory Rate 46 H 36 H Respiratory Effort Respiratory Depth Respiratory Pattern Blood Pressure 118/96 H Blood Pressure Mean 103 Pulse Ox 80 95 Oxygen Delivery Method Room Air Nasal Cannula Nasal Cannula Oxygen Flow Rate (L/min) 2 4 Fraction of Inspired Oxygen (FIO2) 02/12/24 18:41 02/12/24 19:28 02/12/24 19:35 Temperature 99 F Temperature Source Oral Pulse Rate 113 H 111 H Respiratory Rate 26 H 29 H Respiratory Effort Short of Breath Labored Respiratory Depth Shallow Respiratory Pattern Tachypnea Tachypnea Blood Pressure 127/99 H Blood Pressure Mean 108 Pulse Ox 93 Oxygen Delivery Method Nasal Cannula Nasal Cannula Oxygen Flow Rate (L/min) 4 3 Fraction of Inspired Oxygen (FIO2) 02/12/24 20:00 02/12/24 21:00 02/12/24 21:37 Temperature 99.1 F 99 F 98.8 F Temperature Source Oral Oral Pulse Rate 106 H 109 H 107 H Respiratory Rate 23 H 27 H 24 H Respiratory Effort Respiratory Depth Respiratory Pattern Blood Pressure 138/59 H 111/87 H 147/83 H Blood Pressure Mean 85 95 104 Pulse Ox 94 94 94 Oxygen Delivery Method Nasal Cannula Nasal Cannula Oxygen Flow Rate (L/min) 3 Fraction of Inspired Oxygen (FIO2) 3 Weight Weight: 253 lb 11.2 oz Body Mass Index (BMI) 38.5 Physical Exam Narrative General: Alert, Oriented x3, Cooperative, No apparent distress HEENT: Atraumatic, PERRLA, EOMI, Normocephalic Oral: Moist Mucosa Neck: Supple, No JVD Lungs: Diminished, poor air movement, No rhonchi, No wheeze, No rales Cardiovascular: Regular rate, Regular Rhythm, Normal S1, Normal S2, No murmurs Abdomen: Soft, Non Tender, Non-Distended, No Hepato-splenomegaly Extremities: No edema, Capillary Refill Less than 3 Seconds Skin: No rashes, No breakdown Musculoskeletal: No Tenderness to Palpation of Joints or Extremities Neurological: No focal neurological deficits, Motor Exam 5/5 strength throughout, Sensory exam intact to light touch and pain Psych/Mental Status: Normal Affect, Appropriate Results Lab / Micro Data 02/12/24 18:43 02/12/24 18:43 Labs: Laboratory Results - last 24 hr 02/12/24 18:43: WBC 15.3 H, RBC 5.05, Hgb 13.4, Hct 43.1, MCV 85.3, MCH 26.5 L, MCHC 31.1 L, RDW Std Deviation 45.5 H, RDW Coeff of Lizz 14.6, Plt Count 175, MPV 10.9, Immature Gran % (Auto) 0.400, Neut % (Auto) 78.8 H, Lymph % (Auto) 12.6 L, [place] % (Auto) 7.2, Eos % (Auto) 0.7, Baso % (Auto) 0.3, Absolute Neuts (auto) 12.0 H, Absolute Lymphs (auto) 1.92, Nucleated RBC % 0, PT 13.7, INR 1.1, APTT 28.4, Sodium 139, Potassium 3.3 L, Chloride 105, Carbon Dioxide 27.0, Anion Gap 7, BUN 6 L, Creatinine 0.57, Estim Creat Clear Calc 132.81, Est GFR (MDRD) Af Amer 137, Est GFR (MDRD) Non-Af 114, BUN/Creatinine Ratio 10.5, Glucose 124 H, Calcium 9.6, Troponin I High Sens 15 02/12/24 19:25: Lactic Acid 1.3 02/12/24 21:04: Troponin I High Sens 19 Micro: Microbiology 02/12/24 19:20 Mucosa - Nose SARS-CoV-2, Influenza & RSV (PCR) - Final ABG Data ABG results: ABG 02/12/24 19:46 Specimen Type ART Sample Site L Radial pH 7.39 Bicarbonate Actual 28.4 H Total CO2 30 Base Excess 4 H O2 Saturation 95 O2 % 3.0 ABG pCO2 46.4 H ABG pO2 77 Jostin Test Positive O2 Delivery Device Cannula Vent Mode Not entered Imaging Radiology Impression Chest X-Ray 02/12/24 18:45 IMPRESSION: Mild right lower lung infiltrate or edema. Electronically Signed: Paxton Hargrove MD at 19:22 EST , Assessment & Plan Assessment/Plan (1) Right middle lobe pneumonia: PLAN: Plan 1. Acute hypoxic respiratory insufficiency secondary to right sided pneumonia/COPD exacerbation/alpha-1 antitrypsin disease deficiency ? Continue with Levaquin ? DuoNebs ? Solu-Medrol ? Incentive spirometry ? Discussed tobacco cessation ? Continue with her home Singulair 2. Essential HTN/HLD ? Blood pressures are stable?resume her home medications ? Will monitor make adjustments as necessary ? Continue with statin 3. DM2 ? Hold her home medications ? Slight scale insulin ? Accu-Cheks ACHS ? Will monitor make adjustments as necessary 4. GERD ? Stable ? Continue with PPI DVT: Lovenox 75 minutes was spent on direct patient care, including documentation as well as chart review and collaboration with colleagues Charges/Coding Visit Charges Inpatient E&M: 16535 Init Hosp L3
[2024-02-12 23:16] LABS: Bedside Glucose 116 mg/dL (74-106)
[2024-02-12] MEDS: Montelukast 10 MG Tablet PO (23:20)
[2024-02-12] MEDS: Ipratropium/Albuterol Sulfate 3 ML AMPUL.NEB INHALATION (23:38)
[2024-02-13] VITALS (13 sets, daily range): BP systolic 126–155; BP diastolic 71–106; PULSE 83–109; RESP 18–24; TEMP 36.5–36.9; O2SAT 91–97
[2024-02-13] MEDS: levoFLOXacin 750 MG Tablet PO (06:08)
[2024-02-13 06:44] LABS: Bedside Glucose 133 mg/dL (74-106)
[2024-02-13] MEDS: Ipratropium/Albuterol Sulfate 3 ML AMPUL.NEB INHALATION ×3 (06:44→19:37)
[2024-02-13 07:00] LABS: Absolute Lymphocyte Count 1.07 X10^3/uL (0.83-4.51); Basophil# 0.04 X10^3/uL; Basophil% 0.3 % (0-1); Eosinophil# 0.07 X10^3/uL; Eosinophils% 0.5 % (0-5); Hematocrit 41.9 % (37-47); Hemoglobin 13.3 g/dL (12.0-15.0); Lymphocyte # 1.07 X10^3/ul (0.83-4.51); Lymphocyte % 7.4 % (19-41); Mean Corp Hgb Conc 31.7 g/dL (32-36); Mean Corpuscular Hgb 27.1 pg (27.0-32.0); Mean Corpuscular Volume 85.5 fL (81-99); Mean Platelet Vol. 11.2 fl (6.2-12.0); Monocyte# 0.22 X10^3/uL; Monocyte% 1.5 % (0-10); NRBC Flagged by Analyzer 0 % (0-5); Neutrophil # 12.97 X10^3/uL (2.7-7.7); Neutrophil % 89.7 % (47-70); Platelet Count 211 K/mm3 (150-450); RBC Distribution Width CV 14.3 % (11.6-14.6); RBC Distribution Width SD 44.9 fl (35.1-43.9); White Blood Count 14.5 K/mm3 (4.4-11.0)
[2024-02-13 07:41] LABS: Anion Gap 6 (5-15); BUN 8 mg/dL (7-18); BUN/Creat Ratio 15.4 RATIO (10-20); Calcium,Total 9.5 mg/dL (8.5-10.1); Chloride 102 mmol/L (98-107); Creatinine, Serum 0.52 mg/dL (0.55-1.02); EST Glomerular Filtration Rate 127 mL/min (>60); Est Glom Filt Rate - Afr Amer 153 mL/min (>60); Estimated Creatinine Clearance 142.07 ml/min; Glucose 151 mg/dL (74-106); Sodium Level 136 mmol/L (136-145)
[2024-02-13] MEDS: Pantoprazole Sodium 40 MG Tablet PO (08:16)
[2024-02-13] MEDS: Enoxaparin 40 MG/0.4 ML Syringe SC (08:16)
--- NOTE | 2024-02-13 11:15 | PCM.PN.HOSP ---
Reason for Visit Reason for Visit: Diagnoses Pneumonia, unspecified organism (02/12/24) Subjective Subjective Saw patient at bedside this morning. Patient was sitting up comfortably in bedside chair, in no acute distress. She was breathing comfortably on 2 L nasal cannula at rest. Stated that she felt better today compared to yesterday on admission. She did continue to feel wheezy in her upper airways but this was improving with breathing treatments and steroids. Continue to have a cough with some sputum production. Denied any fevers or chills. No other new concerns at this time. Objective Data Objective Data Vital Signs: Vital Signs Temp Pulse Resp BP Pulse Ox O2 Del Method O2 Flow Rate 97.9 F 92 20 H 126/71 H 95 Nasal Cannula 2 02/13/24 08:14 02/13/24 08:14 02/13/24 08:14 02/13/24 08:14 02/13/24 08:14 02/13/24 08:14 02/13/24 08:14 FiO2 3 02/12/24 20:00 Oxygen Flow Rate (L/min) 2 Oxygen Delivery Method Nasal Cannula Weight: 110 kg Body Mass Index (BMI) 36.8 Intake & Output: Intake and Output for Last 24 Hours 02/11/24 02/12/24 02/13/24 23:59 23:59 23:59 Intake Total 305 / 505 200 / 200 Balance 305 / 505 200 / 200 Lab / Micro Data 02/13/24 06:43 02/13/24 06:43 Labs: Laboratory Results - last 24 hr 02/12/24 18:43: WBC 15.3 H, RBC 5.05, Hgb 13.4, Hct 43.1, MCV 85.3, MCH 26.5 L, MCHC 31.1 L, RDW Std Deviation 45.5 H, RDW Coeff of Lizz 14.6, Plt Count 175, MPV 10.9, Immature Gran % (Auto) 0.400, Neut % (Auto) 78.8 H, Lymph % (Auto) 12.6 L, Leon % (Auto) 7.2, Eos % (Auto) 0.7, Baso % (Auto) 0.3, Absolute Neuts (auto) 12.0 H, Absolute Lymphs (auto) 1.92, Nucleated RBC % 0, PT 13.7, INR 1.1, APTT 28.4, Sodium 139, Potassium 3.3 L, Chloride 105, Carbon Dioxide 27.0, Anion Gap 7, BUN 6 L, Creatinine 0.57, Estim Creat Clear Calc 132.81, Est GFR (MDRD) Af Amer 137, Est GFR (MDRD) Non-Af 114, BUN/Creatinine Ratio 10.5, Glucose 124 H, Calcium 9.6, Troponin I High Sens 15 02/12/24 19:25: Lactic Acid 1.3 02/12/24 21:04: Troponin I High Sens 19 02/12/24 22:57: POC Glucose 116 H 02/13/24 06:26: POC Glucose 133 H 02/13/24 06:43: WBC 14.5 H, RBC 4.90, Hgb 13.3, Hct 41.9, MCV 85.5, MCH 27.1, MCHC 31.7 L, RDW Std Deviation 44.9 H, RDW Coeff of Lizz 14.3, Plt Count 211, MPV 11.2, Immature Gran % (Auto) 0.600, Neut % (Auto) 89.7 H, Lymph % (Auto) 7.4 L, Leon % (Auto) 1.5, Eos % (Auto) 0.5, Baso % (Auto) 0.3, Absolute Neuts (auto) 13.0 H, Absolute Lymphs (auto) 1.07, Nucleated RBC % 0, Sodium 136, Potassium 4.0, Chloride 102, Carbon Dioxide 29.0, Anion Gap 6, BUN 8, Creatinine 0.52 L, Estim Creat Clear Calc 142.07, Est GFR (MDRD) Af Amer 153, Est GFR (MDRD) Non-Af 127, BUN/Creatinine Ratio 15.4, Glucose 151 H, Calcium 9.5 Micro: Microbiology 02/12/24 19:20 Mucosa - Nose SARS-CoV-2, Influenza & RSV (PCR) - Final ABG Data ABG results: ABG 02/12/24 19:46 Specimen Type ART Sample Site L Radial pH 7.39 Bicarbonate Actual 28.4 H Total CO2 30 Base Excess 4 H O2 Saturation 95 O2 % 3.0 ABG pCO2 46.4 H ABG pO2 77 Jostin Test Positive O2 Delivery Device Cannula Vent Mode Not entered Radiography Diagnostic Testing: Radiology Impression Chest X-Ray 02/12/24 18:45 IMPRESSION: Mild right lower lung infiltrate or edema. Electronically Signed: Paxton Hargrove MD at 19:22 EST , Physical Exam Const alert, oriented x3 and no apparent distress Constitutional Narrative: Elderly female, class II obesity, mildly fatigued appearing, otherwise sitting up comfortably in bedside chair, conversing normally, no acute distress. General Appearance: cooperative and comfortable HEENT normocephalic, head/scalp atraumatic, hearing grossly normal bilaterally, nasal mucous membranes and turbinates normal and moist oral mucous membranes Eyes PERRL, EOMs intact bilaterally and conjunctivae normal Neck full ROM Chest inspection of chest normal Resp normal respiratory effort and no use of accessory muscles Resp Narrative: Breathing comfortably on 2 L nasal cannula at rest. Significant wheezing noted in bilateral upper airways with diminished breath sounds bilaterally. No crackles noted. Cardio regular rate, regular rhythm, no murmurs and peripheral pulses 2+ throughout GI normal to inspection, nondistended, normoactive bowel sounds, soft to palpation, non-tender and non-distended Back/Spine normal ROM Extremity normal to inspection, full ROM and no pedal edema Skin no rashes or lesions noted Psych mental status grossly normal Assessment & Plan Assessment/Plan (1) Hypoxia: (2) Right middle lobe pneumonia: (3) COPD exacerbation: PLAN: Plan Patient is a 63-year-old female who presented [facility] ED on 02/12/2024 with worsening shortness of breath. 1. Acute hypoxia secondary to right-sided community-acquired pneumonia with acute exacerbation of COPD, history of alpha-1 antitrypsin deficiency ? Follows with [place] [facility]. 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 However, has not required any home oxygen to this point. Had worsening shortness of breath with hypoxia on admit. Chest x-ray showed mild right lower lung infiltrate versus edema. Treating with IV steroids, scheduled DuoNebs and p.o. Levaquin for now. Infectious workup negative to this point. The patient continues to improve tomorrow, will plan to transition to p.o. steroids in preparation for discharge. Suspect patient will need longer steroid taper on discharge. Will need home oxygen testing prior to discharge as well. Continue home long-acting inhaler. 2. Tobacco abuse ? Had a roughly [id number] smoking history but quit in 2006. However, due to family stress she recently started smoking again within the last 4 to 5 months. Has been smoking 5 to 6 cigarettes daily. Denied need for nicotine replacement therapy on admission. Discussed cessation on discharge. Chronic medical conditions: ? Class II obesity: BMI 36 on admit. Complicates hospital course, care and prognosis. ? NATHANIEL: Continue CPAP at night. ? Hyperlipidemia: Continue home statin. ? Type 2 diabetes mellitus: Treating with sliding scale insulin while inpatient. Hold home oral medications. ? GERD: Continue home PPI. DVT prophylaxis: Lovenox CODE STATUS: DNR-CCA, DNI Expected disposition: Home, 1 to 2 days Total clinical time spent by myself addressing the patient's medical issues, reviewing all the data, and collaborating with patient's care team: 35 minutes. Charges/Coding Visit Charges Inpatient E&M: 87969 Subs Hosp L2
[2024-02-13 12:06] LABS: Bedside Glucose 148 mg/dL (74-106)
--- NOTE | 2024-02-13 12:08 | CHAPLAIN ---
Type of Pastoral Visit _x__ Initial Visit ___ Follow-up Visit ___ On-call Visit ___ General Patient Visit ___ Spiritual Assessment ___ Family Conference ___ Bereavement ___ Rapid Response ___ Code Blue ___ Other (describe below) Pastoral Care Referral From _x_ Patient ___ Family ___ Nurse ___ Physician ___ School Commissioner ___ Cutter Grind Tool Technician ___ Other (describe below) Sacrament/Intervention _x__ Active listening ___ Anointing ___ Pentecostalism ___ Bereavement ___ Communion ___ Marjorie exploration ___ _x__ Life review _x__ Prayer ___ Reconciliation ___ Sacrament of Sick ___ Supportive presence ___ Wedding ___ Other (describe below) Pastoral Comments patient reports feeling better and realizing that she needed to come to hospital earlier; pt has plans to retire soon and gave some life review; pt is looking forward to [place] and is motivated to get better; patient welcomes presence and prayer
[2024-02-13] MEDS: 0.9% Saline Lock 10 ML Syringe IV ×2 (13:07→22:13)
--- NOTE | 2024-02-13 15:33 | CASEMGMT ---
NEGRO PEREZ Assessment Face to Face with patient for initial transition planning/care coordination assessment. NEGRO PEREZ introduced self and role at [facility], pt voices understanding. Pt is A&Ox4 and is resting comfortably in bed and is calm. Care providers, pharmacy, and demographics verified. Admitting dx: COPD with PNA LACE Strata: 2 PCP: Luz Specialists: [facility] Preferred Pharmacy: [facility] Insurance: [employer] 360 Prescription Benefit: Yes LNOK: Toy (), Marilou Rivero (Alvin) Living Arrangements: Pt lives with her in a 2 story home with a flat entrance ADLs/IADLs: Ind Transportation: Self, DME: Functioning [facility] with sufficient supplies. Nebulizer, pox, CPAP, BP machine. Pt is currently requiring additional oxygen and may qualify for home oxygen use. A verbal list of local in-network DME companies were provided to the pt at this time. Pt prefers [facility] HHC/SNF: Denies history or needs Pt?s goal: Home Plan: Home with pt , follow for oxygen needs. 6-Click is 22. Pt denies the need for HHC, OP Tx, or CCN. Pt states that she feels safe returning home with her once she is medically ready and denies further concerns. Report given to ALEXIS TOM CM. Romi Mc RN, CM
[2024-02-13 17:21] LABS: Bedside Glucose 145 mg/dL (74-106)
[2024-02-13] MEDS: Insulin Lispro 100 UNIT/ML INSULN.PEN SC (22:11)
[2024-02-13] MEDS: Montelukast 10 MG Tablet PO (22:16)
[2024-02-13] MEDS: Atorvastatin Calcium 20 MG Tablet PO (22:16)
[2024-02-14] VITALS (14 sets, daily range): BP systolic 128–140; BP diastolic 70–87; PULSE 71–79; RESP 17–24; TEMP 36.2–36.7; O2SAT 76–95
[2024-02-14 00:35] LABS: Bedside Glucose 211 mg/dL (74-106)
[2024-02-14] MEDS: 0.9% Saline Lock 10 ML Syringe IV ×3 (06:27→22:56)
[2024-02-14] MEDS: levoFLOXacin 750 MG Tablet PO (06:30)
[2024-02-14 06:52] LABS: Bedside Glucose 131 mg/dL (74-106)
[2024-02-14] MEDS: Ipratropium/Albuterol Sulfate 3 ML AMPUL.NEB INHALATION ×4 (07:45→20:02)
[2024-02-14] MEDS: Furosemide 20 MG Tablet PO (10:24)
[2024-02-14] MEDS: Enoxaparin 40 MG/0.4 ML Syringe SC (10:24)
[2024-02-14] MEDS: Pantoprazole Sodium 40 MG Tablet PO (10:24)
--- NOTE | 2024-02-14 10:28 | PN.HOSP_ITS ---
Reason for Visit Reason for Visit: Diagnoses Pneumonia, unspecified organism (02/12/24) Chronic obstructive pulmonary disease with (acute) exacerbation (02/12/24) Hypoxemia (02/12/24) Subjective Subjective Saw patient at bedside this morning. Patient appeared similar to yesterday. She had completed an O2 ambulatory test this morning and unfortunate was requiring 6 L nasal cannula on exertion and oxygen saturations only improved to 85% with that. She is breathing comfortably at rest but does continue to have significant wheezing and tightness noted in her upper airways bilaterally. She reports a continued cough as well. She denies any fevers or chills. She states she is feels slightly improved from yesterday but is not at her baseline. No other new concerns today. Objective Data Objective Data Vital Signs: Vital Signs Temp Pulse Resp BP Pulse Ox O2 Del Method O2 Flow Rate 97.1 F L 71 18 129/75 H 95 Nasal Cannula 2 02/14/24 08:12 02/14/24 08:12 02/14/24 08:12 02/14/24 08:12 02/14/24 08:12 02/14/24 08:16 02/14/24 08:16 FiO2 3 02/12/24 20:00 Oxygen Flow Rate (L/min) 2 Oxygen Delivery Method Nasal Cannula Weight: 110 kg Body Mass Index (BMI) 36.8 Intake & Output: Intake and Output for Last 24 Hours 02/12/24 02/13/24 02/14/24 23:59 23:59 23:59 Intake Total 305 / 505 500 / 500 200 / 200 Balance 305 / 505 500 / 500 200 / 200 Lab / Micro Data 02/13/24 06:43 02/13/24 06:43 Labs: Laboratory Results - last 24 hr 02/13/24 11:34: POC Glucose 148 H 02/13/24 17:04: POC Glucose 145 H 02/13/24 22:11: POC Glucose 211 H 02/14/24 06:26: POC Glucose 131 H Micro: Microbiology 02/12/24 19:20 Mucosa - Nose SARS-CoV-2, Influenza & RSV (PCR) - Final Physical Exam Const alert, oriented x3 and no apparent distress Constitutional Narrative: Elderly female, class II obesity, mildly fatigued appearing, otherwise sitting up comfortably in bedside chair, conversing normally, no acute distress. Stable. General Appearance: cooperative and comfortable HEENT normocephalic, head/scalp atraumatic, hearing grossly normal bilaterally, nasal mucous membranes and turbinates normal and moist oral mucous membranes Eyes PERRL, EOMs intact bilaterally and conjunctivae normal Neck full ROM Chest inspection of chest normal Resp normal respiratory effort and no use of accessory muscles Resp Narrative: Breathing comfortably on 2 L nasal cannula at rest. Moderate wheezing noted in bilateral upper airways with diminished breath sounds bilaterally, slightly improved from yesterday. No crackles noted. Cardio regular rate, regular rhythm, no murmurs and peripheral pulses 2+ throughout GI normal to inspection, nondistended, normoactive bowel sounds, soft to palpation, non-tender and non-distended Back/Spine normal ROM Extremity normal to inspection, full ROM and no pedal edema Skin no rashes or lesions noted Psych mental status grossly normal Assessment & Plan Assessment/Plan (1) Hypoxia: (2) Right middle lobe pneumonia: (3) COPD exacerbation: PLAN: Plan Patient is a 63-year-old female who presented [facility] ED on 02/12/2024 with worsening shortness of breath. 1. Acute hypoxia secondary to right-sided community-acquired pneumonia with acute exacerbation of COPD, history of alpha-1 antitrypsin deficiency ? Follows with [place] [facility]. 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 However, has not required any home oxygen to this point. Had worsening shortness of breath with hypoxia on admit. Chest x-ray showed mild right lower lung infiltrate versus edema. Treating with IV steroids, scheduled DuoNebs and p.o. Levaquin for now. Infectious workup negative to this point. Patient unfortunately continues to have significant wheezing in upper airways with diminished breath sounds bilaterally. Completed O2 testing on 02/13 and required 6 L nasal cannula with exertion to maintain oxygen saturations of only 85%. Will continue IV steroids and scheduled DuoNebs for now. Planning for a longer steroid taper on discharge. Continue home long- acting inhaler. 2. Tobacco abuse ? Had a roughly [id number] smoking history but quit in 2006. However, due to family stress she recently started smoking again within the last 4 to 5 months. Has been smoking 5 to 6 cigarettes daily. Denied need for nicotine replacement therapy on admission. Discussed cessation on discharge. Chronic medical conditions: ? Class II obesity: BMI 36 on admit. Complicates hospital course, care and prognosis. ? NATHANIEL: Continue CPAP at night. ? Hyperlipidemia: Continue home statin. ? Type 2 diabetes mellitus: Treating with sliding scale insulin while inpatient. Hold home oral medications. ? GERD: Continue home PPI. DVT prophylaxis: Lovenox CODE STATUS: DNR-CCA, DNI Expected disposition: Home, 1 to 2 days Total clinical time spent by myself addressing the patient's medical issues, reviewing all the data, and collaborating with patient's care team: 35 minutes. Charges/Coding Visit Charges Inpatient E&M: 04987 Subs Hosp L2
[2024-02-14] MEDS: Budesonide Respules 0.5 MG/2 ML AMPUL.NEB. INHALATION ×2 (11:11→20:03)
[2024-02-14 11:48] LABS: Bedside Glucose 214 mg/dL (74-106)
[2024-02-14] MEDS: Insulin Lispro 100 UNIT/ML INSULN.PEN SC ×3 (12:32→22:53)
[2024-02-14] MEDS: Glucerna Shake 120 ML LIQUID PO (12:32)
[2024-02-14 16:55] LABS: Bedside Glucose 198 mg/dL (74-106)
[2024-02-14] MEDS: Montelukast 10 MG Tablet PO (22:55)
[2024-02-14] MEDS: Atorvastatin Calcium 20 MG Tablet PO (22:55)
[2024-02-14 23:46] LABS: Bedside Glucose 217 mg/dL (74-106)
[2024-02-15] MEDS: levoFLOXacin 750 MG Tablet PO (06:26)
[2024-02-15] MEDS: 0.9% Saline Lock 10 ML Syringe IV (06:26)
[2024-02-15] MEDS: Insulin Lispro 100 UNIT/ML INSULN.PEN SC (06:27)
[2024-02-15 06:40] VITALS: BP 128/87; PULSE 82; RESP 18; TEMP 36.1; O2SAT 93
[2024-02-15] MEDS: Budesonide Respules 0.5 MG/2 ML AMPUL.NEB. INHALATION (07:18)
[2024-02-15] MEDS: Ipratropium/Albuterol Sulfate 3 ML AMPUL.NEB INHALATION ×2 (07:18→11:01)
[2024-02-15 07:20] VITALS: PULSE 73; RESP 18; O2SAT 93
[2024-02-15 08:00] VITALS: O2SAT 91; O2SAT 92
[2024-02-15] MEDS: Pantoprazole Sodium 40 MG Tablet PO (08:11)
[2024-02-15] MEDS: Enoxaparin 40 MG/0.4 ML Syringe SC (08:11)
[2024-02-15 10:56] VITALS: BP 136/73; PULSE 72; RESP 19; TEMP 36.7; O2SAT 96
[2024-02-15 11:03] VITALS: PULSE 63; RESP 18
--- NOTE | 2024-02-15 11:03 | DCINST_ITS ---
Discharge Instructions Diet Discharge Diet: Carb Control Diet DC O2, CPAP, BIPAP needs RN Home O2 Qualification: Home O2 Qualification: Is the patient on home oxygen No 02/15/24 08:00 Home O2 Qualification: AT REST 1- Pulse Ox at rest 91 02/15/24 08:00 2- Pulse Ox at rest 90 02/14/24 05:39 2- Oxygen Flow Rate at rest 1 02/14/24 05:39 Home O2 Qualification: WITH AMBULATION 1- Pulse Ox with ambulation 92 02/15/24 08:00 1- Oxygen Flow Rate with 2 02/15/24 08:00 ambulation 2- Pulse Ox with ambulation 81 02/14/24 05:39 2- Oxygen Flow Rate with 4 02/14/24 05:39 ambulation 3- Pulse Ox with ambulation 85 02/14/24 05:39 3- Oxygen Flow Rate with 6 02/14/24 05:39 ambulation 3- Stopped test - Unable to Yes 02/14/24 05:39 obtain pulse ox >89% w/ max oxyg 4- Pulse Ox with ambulation 85 02/14/24 05:39 4- Oxygen Flow Rate with 6 02/14/24 05:39 ambulation 4- Stopped test - Unable to Yes 02/14/24 05:39 obtain pulse ox >89% w/ max oxyg PSN CPAP & BiPAP: BiPAP & CPAP Settings per PSN Fraction of Inspired Oxygen ( 3 02/12/24 20:00 FIO2) Home O2 Discharge instructions: Yes Type of respiratory needs?: Oxygen Oxygen frequency: With Ambulation Oxygen liters per minute during Ambulation: 2 Dressing / Incision Discharge Activity: No Restrictions Follow Up Care Test Results: Test results from this visit will be discussed in further detail at your follow- up appointment, if applicable. Discharge Plan Admission Admit Date/Time: 02/12/24 21:28 Primary Reason for Your Visit: Worsening shortness of breath Attending Provider: Joel Solis Primary Care Provider: Cyndi Escobar Consulting Providers: Ke Enrique Instructions Additional Instructions / Restrictions: ? Please wear 2 L of oxygen with exertion. You do not need any oxygen with rest at this time. Please use your pulse oximeter at home to make sure your oxygen level staying above 88%. ? Please take prednisone taper as noted below. ? Take 3 more days of levofloxacin to complete a 7-day course of antibiotics total. ? Call your PCP and/or pulmonology office to discuss your workplace needs moving forward. Discharge Orders/Prescriptions Prescriptions: New levofloxacin 750 mg Tablet 750 mg PO DAILY@0600 3 Days Qty: 3 0RF prednisone 10 mg tablet See Taper PO DAILY 28 Days Qty: 70 0RF Taper: Prednisone Taper 40 mg WITH BREAKFAST for 7 Days and 0 Hour 30 mg WITH BREAKFAST for 7 Days and 0 Hour 20 mg WITH BREAKFAST for 7 Days and 0 Hour 10 mg WITH BREAKFAST for 7 Days and 0 Hour Continued metformin 500 mg tablet 1,000 mg PO BID lorazepam [Ativan] 0.5 mg tablet 0.5 mg PO DAILY PRN (Reason: Anxiety) cholecalciferol (vitamin D3) 2,000 unit capsule 4,000 unit PO DAILY (DME) PEP device See Rx Instructions .ROUTE .MEDSUPPLY Qty: 1 0RF Rx Instructions: with training omeprazole 20 mg tablet,delayed release (DR/EC) 40 mg PO DAILY furosemide 20 mg tablet 20 mg PO Q OTHER DAY Ozempic 0.25 mg or 0.5 mg (2 mg/3 mL) pen injector 0.5 mg subcut QWEEK Trelegy Ellipta 100-62.5-25 mcg blister with device 1 inh INHALATION DAILY Qty: 3 3RF albuterol sulfate [Proventil HFA] 90 mcg/actuation HFA aerosol inhaler 2 inh INHALATION Q6H PRN (Reason: shortness of breath or wheezing) Qty: 18 6RF cetirizine 10 mg tablet 10 mg PO DAILY Qty: 90 3RF guaifenesin [Mucinex] 1,200 mg tablet extended release 12hr 1,200 mg PO BID Qty: 60 11RF montelukast 10 mg tablet 10 mg PO QPM Qty: 90 3RF rosuvastatin 10 mg tablet 10 mg PO DAILY albuterol sulfate 2.5 mg /3 mL (0.083 %) solution for nebulization 2.5 mg INHALATION Q4H PRN (Reason: shortness of breath or wheezing) Qty: 360 11RF Referrals / Follow Up: Orlando Broderick DO [Med Staff - Active Staff] - Cyndi Escobar DO [Primary Care Provider] - Disposition Disposition (needs filled in before D/C Order can be placed): Home, Self Care
--- NOTE | 2024-02-15 11:08 | DS.PCM_ITS ---
Providers Date of Admission: 02/12/24 Date of Discharge: 02/15/24 Primary Care Physician: Dr. Cyndi Escobar DO Reason For Visit: COPD WITH PNEUMONIA Diagnosis Discharge Diagnosis (1) Hypoxia: Status: Acute Code(s): R09.02 - Hypoxemia (2) Right middle lobe pneumonia: Status: Acute Code(s): J18.9 - Pneumonia, unspecified organism (3) COPD exacerbation: Status: Chronic Code(s): J44.1 - Chronic obstructive pulmonary disease with (acute) exacerbation Medications at Discharge Home Medications cholecalciferol (vitamin D3) 50 mcg (2,000 unit) capsule 4,000 unit PO DAILY supplement 11/15/17 lorazepam 0.5 mg tablet (Ativan) 0.5 mg PO DAILY PRN Anxiety 11/15/17 metformin 500 mg tablet 1,000 mg PO BID dm 11/15/17 PEP device #1 ea 08/11/19 rosuvastatin 10 mg tablet 10 mg PO DAILY hld 01/25/22 omeprazole 20 mg tablet,delayed release 40 mg PO DAILY gerdd 04/30/23 albuterol sulfate 2.5 mg/3 mL (0.083 %) solution for nebulization 2.5 mg (3 mL) inhalation Q4H PRN shortness of breath or wheezing #360 vials 11/04/23 albuterol sulfate 90 mcg/actuation aerosol inhaler (Proventil HFA) 2 inh inhalation Q6H PRN shortness of breath or wheezing #18 grams 11/04/23 cetirizine 10 mg tablet 10 mg PO DAILY asthma #90 tabs 11/04/23 fluticasone fur. 100 mcg-umeclid 62.5 mcg-vilant 25 mcg inhalat.powder (Trelegy Ellipta) 1 inh inhalation DAILY copd #3 ea 11/04/23 furosemide 20 mg tablet 20 mg PO Q OTHER DAY water pill 11/04/23 guaifenesin 1,200 mg tablet, extended release 12 hr (Mucinex) 1,200 mg PO BID cough #60 tabs 11/04/23 montelukast 10 mg tablet 10 mg PO QPM asthma #90 tabs 11/04/23 semaglutide 0.25 mg or 0.5 mg (2 mg/3 mL) subcutaneous pen injector (Ozempic) 0.5 mg subcut QWEEK dm 11/04/23 levofloxacin 750 mg tablet 750 mg PO DAILY@0600 3 days #3 tabs 02/15/24 prednisone 10 mg tablet See Taper PO DAILY 28 days #70 tabs 02/15/24 Hospital Course Operations None Procedures EKG and - (Chest x-ray) Summary of Care Provided Minutes Spent on Discharge: 35 Hospital Course: Patient is a 63-year-old female who presented [facility] ED on 02/12/2024 with worsening shortness of breath. Hospital course is notable low. Patient discharged home in stable condition on 02/14. 1. Acute hypoxia secondary to right-sided community-acquired pneumonia with acute exacerbation of COPD, history of alpha-1 antitrypsin deficiency ? Follows with outpatient [place] pulmonology. 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 However, had not required any home oxygen to this point. Had worsening shortness of breath with hypoxia on admit. Chest x-ray showed mild right lower lung infiltrate versus edema. Treated with IV steroids, scheduled DuoNebs and p.o. Levaquin while inpatient with improvement. Completed O2 testing on day of discharge and required no oxygen at rest but did require 2 L nasal cannula with exertion. Discharge patient on prolonged prednisone taper and 3 more days of Levaquin to complete 7-day course of antibiotics total. Recommend close outpatient follow- up with pulmonology on discharge. 2. Tobacco abuse ? Had a roughly 28-argi-vfuw smoking history but quit in 2006. However, due to family stress she recently started smoking again within the last 4 to 5 months. Has been smoking 5 to 6 cigarettes daily. Denied need for nicotine replacement therapy on admission. Discussed cessation on discharge. Chronic medical conditions: ? Class II obesity: BMI 36 on admit. Complicated hospital course, care and prognosis. ? NATHANIEL: Continue CPAP at night. ? Hyperlipidemia: Continue home statin. ? Type 2 diabetes mellitus: Treated with sliding scale insulin while inpatient. Okay to resume home metformin and Ozempic on discharge. ? GERD: Continue home PPI. Total clinical time spent by myself addressing the patient's medical issues, reviewing all the data, and collaborating with patient's care team: 35 minutes. Physical Exam Const alert, oriented x3 and no apparent distress Constitutional Narrative: Elderly female, class II obesity, mildly fatigued appearing, otherwise sitting up comfortably in bedside chair, conversing normally, no acute distress. Stable. General Appearance: cooperative and comfortable HEENT normocephalic, head/scalp atraumatic, hearing grossly normal bilaterally, nasal mucous membranes and turbinates normal and moist oral mucous membranes Eyes PERRL, EOMs intact bilaterally and conjunctivae normal Neck full ROM Chest inspection of chest normal Resp normal respiratory effort and no use of accessory muscles Resp Narrative: Breathing comfortably on room air at rest. Mild wheezing noted in bilateral upper airways with mildly diminished breath sounds bilaterally, improved from admission. No crackles noted. Cardio regular rate, regular rhythm, no murmurs and peripheral pulses 2+ throughout GI normal to inspection, nondistended, normoactive bowel sounds, soft to palpation, non-tender and non-distended Back/Spine normal ROM Extremity normal to inspection, full ROM and no pedal edema Skin no rashes or lesions noted Psych mental status grossly normal Weight / BMI Weight Weight: 110 kg Body Mass Index (BMI) 36.8 ABG / Lab / Microbiology Data 02/13/24 06:43 02/13/24 06:43 Laboratory: Laboratory Results - last 24 hr 02/14/24 16:37: POC Glucose 198 H 02/14/24 22:52: POC Glucose 217 H 02/15/24 11:31: POC Glucose 171 H Microbiology: Microbiology 02/12/24 19:25 Blood Culture (Wb) - Anticubital Left Blood Culture - Preliminary No growth in 48 hours. 02/12/24 19:20 Blood Culture (Wb) - Anticubital Right Blood Culture - Preliminary No growth in 48 hours. 02/12/24 19:20 Mucosa - Nose SARS-CoV-2, Influenza & RSV (PCR) - Final D/C Instructions Discharge Diet: Carb Control Diet DC O2, CPAP, BIPAP Needs RN Home O2 Qualification: Home O2 Qualification: Is the patient on home oxygen No 02/15/24 08:00 Home O2 Qualification: AT REST 1- Pulse Ox at rest 91 02/15/24 08:00 2- Pulse Ox at rest 90 02/14/24 05:39 2- Oxygen Flow Rate at rest 1 02/14/24 05:39 Home O2 Qualification: WITH AMBULATION 1- Pulse Ox with ambulation 92 02/15/24 08:00 1- Oxygen Flow Rate with 2 02/15/24 08:00 ambulation 2- Pulse Ox with ambulation 81 02/14/24 05:39 2- Oxygen Flow Rate with 4 02/14/24 05:39 ambulation 3- Pulse Ox with ambulation 85 02/14/24 05:39 3- Oxygen Flow Rate with 6 02/14/24 05:39 ambulation 3- Stopped test - Unable to Yes 02/14/24 05:39 obtain pulse ox >89% w/ max oxyg 4- Pulse Ox with ambulation 85 02/14/24 05:39 4- Oxygen Flow Rate with 6 02/14/24 05:39 ambulation 4- Stopped test - Unable to Yes 02/14/24 05:39 obtain pulse ox >89% w/ max oxyg PSN CPAP & BiPAP: BiPAP & CPAP Settings per PSN Fraction of Inspired Oxygen ( 3 02/12/24 20:00 FIO2) Home O2 Discharge instructions: Yes Type of respiratory needs?: Oxygen Oxygen frequency: With Ambulation Oxygen liters per minute during Ambulation: 2 DC home with Oxygen: Yes Home O2 MD Review: I have reviewed the oxygen testing, and the patient qualifies for home oxygen equipment and portability. The patient is mobile in the home and the community. Meaningful Use Info Meaningful Use Meaningful Use Diagnoses (Choose all that apply): None applicable Ischemic Stroke Statin Dosing Therapy Reference: STATIN DOSE THERAPY REFERENCE: * Patients > 75 years receive moderate or high dose statin therapy. * Patients 75 years or YOUNGER should receive HIGH intensity statin dose unless contraindicated. You will be required to document reason for non-treatment if statin daily dose does not meet guidelines. HIGH DOSE STATIN THERAPY DAILY Atorvastatin > than or = to 40 mg Rosuvastatin > than or = to 20 mg Amlodipine + Atorvastatin > than or = to 2.5/40 mg Ezetimibe + Simvastatin 10/80 mg Simvastatin 80mg Discharge Plan Admission Admit Date/Time: 02/12/24 21:28 Primary Reason for Your Visit: Worsening shortness of breath Attending Provider: Joel Solis Primary Care Provider: Cyndi Escobar Consulting Providers: Ke Enrique Instructions Additional Instructions / Restrictions: ? Please wear 2 L of oxygen with exertion. You do not need any oxygen with rest at this time. Please use your pulse oximeter at home to make sure your oxygen level staying above 88%. ? Please take prednisone taper as noted below. ? Take 3 more days of levofloxacin to complete a 7-day course of antibiotics total. ? Call your PCP and/or pulmonology office to discuss your workplace needs moving forward. Discharge Orders/Prescriptions Prescriptions: New levofloxacin 750 mg Tablet 750 mg PO DAILY@0600 3 Days Qty: 3 0RF prednisone 10 mg tablet See Taper PO DAILY 28 Days Qty: 70 0RF Taper: Prednisone Taper 40 mg WITH BREAKFAST for 7 Days and 0 Hour 30 mg WITH BREAKFAST for 7 Days and 0 Hour 20 mg WITH BREAKFAST for 7 Days and 0 Hour 10 mg WITH BREAKFAST for 7 Days and 0 Hour Continued metformin 500 mg tablet 1,000 mg PO BID lorazepam [Ativan] 0.5 mg tablet 0.5 mg PO DAILY PRN (Reason: Anxiety) cholecalciferol (vitamin D3) 2,000 unit capsule 4,000 unit PO DAILY (DME) PEP device See Rx Instructions .ROUTE .MEDSUPPLY Qty: 1 0RF Rx Instructions: with training omeprazole 20 mg tablet,delayed release (DR/EC) 40 mg PO DAILY furosemide 20 mg tablet 20 mg PO Q OTHER DAY Ozempic 0.25 mg or 0.5 mg (2 mg/3 mL) pen injector 0.5 mg subcut QWEEK Trelegy Ellipta 100-62.5-25 mcg blister with device 1 inh INHALATION DAILY Qty: 3 3RF albuterol sulfate [Proventil HFA] 90 mcg/actuation HFA aerosol inhaler 2 inh INHALATION Q6H PRN (Reason: shortness of breath or wheezing) Qty: 18 6RF cetirizine 10 mg tablet 10 mg PO DAILY Qty: 90 3RF guaifenesin [Mucinex] 1,200 mg tablet extended release 12hr 1,200 mg PO BID Qty: 60 11RF montelukast 10 mg tablet 10 mg PO QPM Qty: 90 3RF rosuvastatin 10 mg tablet 10 mg PO DAILY albuterol sulfate 2.5 mg /3 mL (0.083 %) solution for nebulization 2.5 mg INHALATION Q4H PRN (Reason: shortness of breath or wheezing) Qty: 360 11RF Referrals / Follow Up: Orlando Broderick DO [Med Staff - Active Staff] - Cyndi Escobar DO [Primary Care Provider] - Disposition Disposition (needs filled in before D/C Order can be placed): Home, Self Care Charges/Coding Visit Charges Inpatient E&M: 85980 Disch Hosp >30min
[2024-02-15 11:53] LABS: Bedside Glucose 171 mg/dL (74-106)
[2024-02-15 14:00] VITALS: BP 128/78; PULSE 73; RESP 16; TEMP 36.8; O2SAT 98
[2024-02-15 19:48] LABS: Bedside Glucose 154 mg/dL (74-106)
== END 2024-02-15 15:40 | disposition home or self-care (01) | DRG 194 ==
LOC: ED 21:24 → MS3 21:57
PROVIDERS: Admitting Provider Family Medicine; Emergency Provider Emergency Medicine; PCP Internal Medicine; Visit Provider Hospitalist
DX: J18.9 Pneumonia, unspecified organism (principal); J44.1 Chronic obstructive pulmonary disease with (acute) exacerbation; J44.0 Chronic obstructive pulmonary disease with (acute) lower respiratory infection; Z66 Do not resuscitate; E11.9 Type 2 diabetes mellitus without complications; I10 Essential (primary) hypertension; Z68.38 Body mass index [BMI] 38.0-38.9, adult; E88.01 Alpha-1-antitrypsin deficiency; E78.00 Pure hypercholesterolemia, unspecified; K21.9 Gastro-esophageal reflux disease without esophagitis; G47.33 Obstructive sleep apnea (adult) (pediatric); F17.210 Nicotine dependence, cigarettes, uncomplicated; E66.812 Obesity, class 2; Z79.51 Long term (current) use of inhaled steroids; Z79.84 Long term (current) use of oral hypoglycemic drugs; Z79.85 Long-term (current) use of injectable non-insulin antidiabetic drugs; Z79.899 Other long term (current) drug therapy
CPT/HCPCS: 36415; 36600; 71045; 80048; 82803; 82962; 83605; 84484; 85025; 85610; 85730; 87040; 87631; 93005; 94640; 94668; 97802; 99285; A4216; J0696

== ENCOUNTER → 2024-04-06 | Outpatient (CLI) | payer OTHER, SELFPAY ==
--- NOTE | 2024-04-06 08:02 | RAD_ITS ---
PROCEDURE: CHEST PA AND LATERAL REASON FOR EXAM: Bacterial pneumonia, follow. TECHNIQUE: Frontal and lateral views of the chest. COMPARISON: AP chest of 02/12/2024. RAD/Chest PA and Lateral IMPRESSION: Chronic lung changes are seen, most prominent at the lower lung zones. No acute pneumonic process is identified. No pleural effusion or pneumothorax is seen. The cardiomediastinal silhouette is stable, without evidence of cardiomegaly. Mild to moderate thoracic spine degenerative changes are seen. No acute osseou s change is evident. Reading Location: [id number]
== END | disposition home or self-care (01) ==
LOC: RAD 08:00
PROVIDERS: PCP Internal Medicine; Referring Provider Internal Medicine; Visit Provider Internal Medicine
DX: J15.9 Unspecified bacterial pneumonia (principal)
CPT/HCPCS: 71046

== ENCOUNTER → 2024-10-07 | Outpatient (CLI) | payer MEDICARE, SELFPAY ==
--- NOTE | 2024-10-07 10:19 | BI_ITS ---
EXAM: SCRN MAMM (CAD)W/LAYLA BILAT DATE: 10/07/2024 CLINICAL HISTORY: F, Age 64 y/o , BREAST CANCER SCREEN No family history. TECHNIQUE: SCRN MAMM (CAD)W/LAYLA BILAT COMPARISON: Prior exam(s) dated July 04, 2021.. FINDINGS: TISSUE DENSITY: There are scattered areas of fibroglandular density. Bilateral Breast Mammographic Findings: No significant masses, calcifications or other abnormalities are identified. Stable benign-appearing bilateral axillary lymph nodes. No suspicious masses, areas of developing architectural distortion, or suspicious calcifications. There has been no significant interval change. BI/SCRN MAMM (CAD)W/LAYLA BILAT IMPRESSION: Stable examination. OVERALL FINAL ASSESSMENT BI-RADS 2: BENIGN RECOMMENDATION: Routine annual follow-up in 1 Year A letter with findings and recommendations will be mailed to the patient. Reading Location: [id number]
[2024-10-07 10:25] LABS: Hematocrit 41.5 % (37-47); Hemoglobin 12.8 g/dL (12.0-15.0); Immature Granulocytes Count 0.020 X10^3/uL (0.0-0.0); Mean Corp Hgb Conc 30.8 g/dL (32-36); Mean Corpuscular Volume 87.2 fL (81-99); Mean Platelet Vol. 10.9 fl (6.2-12.0); NRBC Flagged by Analyzer 0 % (0-5); Platelet Count 187 K/mm3 (150-450); RBC Distribution Width CV 14.3 % (11.6-14.6); RBC Distribution Width SD 45.9 fl (35.1-43.9); Red Blood Count 4.76 M/mm3 (4.2-5.4); White Blood Count 9.2 K/mm3 (4.4-11.0)
[2024-10-07 10:50] LABS: Color, Urine Straw (Yellow); Glucose, Dipstick Normal (Normal); Ketone-Dipstick Negative (Negative); Leukocyte Esterase-Dipstick 100 /ul (Negative); Mucous, Urine 0 SEEN /hpf (<or=2+); Nitrite-Dipstick Negative (Negative); Occult Blood-Urine 10 /ul (Negative); Protein-Dipstick Negative (Negative); Red Blood Cells-Urine 0 SEEN /hpf (0-5); Specific Gravity, Urine 1.005 (1.002-1.030); Urine Bilirubin Dipstick Negative (Negative)
[2024-10-07 10:58] LABS: Squamous Epithelial Cells - UA 0-5 SEEN /hpf (5-10)
[2024-10-07 11:04] LABS: Creatinine, Urine (random) 22.50 mg/dL (28.00-217.00); Microalbumin,Random Urine 13.9 mg/L (<20 mg/L)
[2024-10-07 11:21] LABS: AST(SGOT) 16 U/L (<=31); Alanine Aminotransfer ALT/SGPT 14 U/L (<=34); Albumin, Serum 4.3 g/dL (3.4-4.8); Alkaline Phosphatase 136 U/L (35-104); Anion Gap 19 (5-15); BUN 6 mg/dL (4-19); BUN/Creat Ratio 10.0 RATIO (10-20); Calcium,Total 9.6 mg/dL (7.6-11.0); Carbon Dioxide 19.0 mmol/L (21.0-32.0); Chloride 103 mmol/L (98-108); Globulin 2.6 g/dL (2.2-4.2); Glucose 110 mg/dL (70-99); Potassium 4.0 mmol/L (3.3-5.1)
[2024-10-07 11:27] LABS: Vitamin D,25 Hydroxy 28.4 ng/mL (30-100)
[2024-10-09 12:09] LABS: CHOLESTEROL TOTAL 117 mg/dL (100-199); HDL-C 50 mg/dL (>39); HDL-P TOTAL 33.0 umol/L (>=30.5); INSULIN RESISTANCE SCORE 56 (<=45); LDL SIZE 19.9 nm (>20.5); LDL-C (NIH CALC) 46 mg/dL (0-99); LDL-P 759 nmol/L (<1000); SMALL LDL-P 515 nmol/L (<=527)
== END | disposition home or self-care (01) ==
PROVIDERS: PCP Internal Medicine; Referring Provider Internal Medicine; Visit Provider Internal Medicine
DX: Z12.31 Encounter for screening mammogram for malignant neoplasm of breast (principal); E11.9 Type 2 diabetes mellitus without complications; E78.5 Hyperlipidemia, unspecified; E55.9 Vitamin D deficiency, unspecified
CPT/HCPCS: 36415; 77063; 77067; 80053; 80061; 81001; 82043; 82306; 82570; 83704; 84443; 85025

== ENCOUNTER → 2024-10-13 | Outpatient (CLI) | payer MEDICARE, SELFPAY ==
--- NOTE | 2024-10-13 13:28 | CT_ITS ---
PROCEDURE: LOW DOSE CT LUNG SCREENING 10/13/2024 REASON FOR EXAM: SMOKING Former smoker. The patient has smoked 1-1/2 pack per day for multiple years. TECHNIQUE: LOW DOSE CT LUNG SCREENING Coronal and Sagittal reconstruction series were provided. One or more dose reduction techniques were used (e.g., Automated exposure control, adjustment of the mA and/or kV according to patient size, use of iterative reconstruction technique). REFERENCE LINK: [email or web address] Lung-RADS RADIATION DOSE SUMMARY: CTDlvol: 4.02 mGy DLP: 129.38 mGycm COMPARISON: Prior study dated August 03, 2020. FINDINGS: PULMONARY NODULES: (Only nodules >3mm are reported) Nodules described below are on series 1 unless otherwise specified. Pulmonary Nodules: 4 mm non calcified nodule in the posterior medial aspect of the right upper lobe as seen on axial image number 48 focal area of scarring in the left lung apex. Hardware:None Lymph Nodes:Small benign-appearing mediastinal lymph nodes. Heart and Vasculature:The heart is not enlarged. Coronary Artery Calcifications: Present Lungs and Airways: Emphysematous changes. Scarring and bronchiectasis in both lower lobes. Pleura:No pleural effusion. Upper Abdomen:Unremarkable Bones:Degenerative changes of the thoracic spine. CT/Low Dose CT Lung Screening IMPRESSION: Chronic changes. Coronary artery calcification (CAC) is is present Lung-RADS Category: 2 BENIGN (BASED ON IMAGING FEATURES OR INDOLENT BEHAVIOR). RECOMMEND 12-MONTH SCREENING LDCT. Other Significant Findings: Reading Location: [facility]
== END | disposition home or self-care (01) ==
PROVIDERS: PCP Internal Medicine; Referring Provider Nurse Practitioner Acute Care; Visit Provider Nurse Practitioner Acute Care
DX: Z12.2 Encounter for screening for malignant neoplasm of respiratory organs (principal); F17.210 Nicotine dependence, cigarettes, uncomplicated
CPT/HCPCS: 71271

== ENCOUNTER → 2024-10-28 | Outpatient (CLI) | payer MEDICARE, SELFPAY | END | disposition home or self-care (01) | LOC: PSN 10:40 | PROVIDERS: PCP Internal Medicine; Referring Provider Nurse Practitioner Acute Care; Visit Provider Nurse Practitioner Acute Care | DX: J44.9 Chronic obstructive pulmonary disease, unspecified (principal) | CPT/HCPCS: 94060; 94726; 94729 ==

== ENCOUNTER → 2024-11-02 | Outpatient (CLI) | payer MEDICARE, SELFPAY ==
[2024-11-02 12:04] VITALS: PULSE 102; PULSE 103; PULSE 107; PULSE 88; PULSE 91; PULSE 95; PULSE 97; O2SAT 89; O2SAT 90; O2SAT 91; O2SAT 92; O2SAT 93; O2SAT 94
--- NOTE | 2024-11-03 12:36 | PCM.PSN.6M ---
PSN 6 Minute Walk Test 6 Minute Walk Test 6 Minute Walk Test: 6 Minute Walk Test PSN:6-Minute Walk Test Start: 11/02/24 12:04 Freq: Status: Active Protocol: [id number] Document 11/02/24 12:04 RADHA (Rec: 11/02/24 12:08 [id number]) 6 Minute Walk Test Date Performed 11/02/24 Time Performed 11:50 Height 5 ft 7 in Weight: 245 lb Weight in Pounds [address]: Annabel Barr DENSITOMETER READER FIO2 (% Oxygen) 21 Assistive device None used: Pre-test Oxygen Delivery Room Air Method Pulse Ox (%) 93 Pulse Rate (60-100 91 beats/min) Dyspnea Lilly Scale ( 0 0-10) Exertion Lilly Scale 6 (6-20) 1st minute Oxygen Delivery Room Air Method Pulse Ox (%) 91 Pulse Rate (60-100 103 H beats/min) 2nd minute Oxygen Delivery Room Air Method Pulse Ox (%) 89 Pulse Rate (60-100 107 H beats/min) Number of Rests 1 Taken 3rd minute Oxygen Delivery Room Air Method Pulse Ox (%) 92 Pulse Rate (60-100 95 beats/min) 4th minute Oxygen Delivery Room Air Method Pulse Ox (%) 92 Pulse Rate (60-100 97 beats/min) 5th minute Oxygen Delivery Room Air Method Pulse Ox (%) 90 Pulse Rate (60-100 102 H beats/min) Number of Rests 1 Taken 6th minute Oxygen Delivery Room Air Method Pulse Ox (%) 91 Pulse Rate (60-100 102 H beats/min) Number of Rests 1 Taken Post-test Oxygen Delivery Room Air Method Pulse Ox (%) 94 Pulse Rate (60-100 88 beats/min) Dyspnea Lilly Scale ( 3 0-10) Exertion Lilly Scale 11 (6-20) Full Laps Walked 11 Partial Lap, Number 16 of Tiles Walked Total Distance 665 Walked (ft) Interpretation Interpretation: The patient ambulated 665 feet over the course of 6 minutes beginning on room air without assistive devices. Pretesting oxygen saturation was noted to be 93% on room air. With ambulation, the monalisa oxygen saturation was 89%. This represents a significant exertional oxygen desaturation, consistent with a pulmonary limitation to exercise tolerance. Recommendations Recommendations: There is no indication for the use of supplemental oxygen at this time. However, close interval follow-up is recommended, given the degree of oxygen desaturation noted during this study.
== END | disposition home or self-care (01) ==
PROVIDERS: PCP Internal Medicine; Referring Provider Nurse Practitioner Acute Care; Visit Provider Nurse Practitioner Acute Care
DX: J44.9 Chronic obstructive pulmonary disease, unspecified (principal)
CPT/HCPCS: 94618